=== PATIENT | male | born 1945 | race Caucasian/White ===

== ENCOUNTER 2020-08-03 08:40 | Outpatient (CLI) | payer MEDICARE, SELFPAY ==
[2020-08-03 09:13] LABS: Basophils Absolute Auto 0.1 K/mm3 (0.0-0.1); Basophils Percent Auto 1.3 % (0.2-1.2); Eosinophils Absolute Auto 0.2 K/mm3 (0-0.3); Eosinophils Percent Auto 2.8 % (0-4.4); Hematocrit 48.6 % (42.0-52.0); Hemoglobin 15.9 g/dL (14.0-18.0); Immature Granulocyte Absolute 0.05 K/mm3 (0.00-0.031); Immature Granulocyte Percent A 0.6 % (0-0.5); Lymphocytes Absolute Auto 1.96 K/mm3 (0.9-3.2); Lymphocytes Percent Auto 22.9 % (18.3-44.2); Mean Corpuscular HGB Conc 32.7 g/dl (32-36); Mean Corpuscular Hemoglobin 27.7 pg (26-34); Mean Corpuscular Volume 84.7 fl (80-100); Mean Platelet Volume 8.8 fl (7.4-10.4); Monocytes Absolute Auto 1.1 K/mm3 (0.1-0.6); Monocytes Percent Auto 12.4 % (2.6-8.5); Neutrophils Absolute Auto 5.1 K/mm3 (1.3-6.7); Platelet Count Result 335 k/mm3 (150-375); Red Blood Count 5.74 M/mm3 (4.6-6.20); Red Cell Distribution Width 13.1 % (11.5-14.5); White Blood Count 8.6 K/mm3 (4.5-10.0)
[2020-08-03 09:29] LABS: CRP < 0.5 mg/dL (<1.0); Uric Acid 6.8 mg/dL (3.5-8.5)
[2020-08-03 09:33] LABS: Rheumatoid Factor < 8.6 IU/ML (<12)
[2020-08-03 09:46] LABS: Erythrocyte Sedimentation Rate 1 mm/hr (0-20)
[2020-08-09 12:00] LABS: Anti Nuclear Antibody Titer 1:40 (Negative)
== END 2020-08-03 08:41 | disposition home or self-care (01) ==
PROVIDERS: PCP Physician Assistant; Visit Provider Orthopaedic Surgery
DX: M17.0 Bilateral primary osteoarthritis of knee (principal); M06.9 Rheumatoid arthritis, unspecified
CPT/HCPCS: 36415; 84550; 85025; 85652; 86038; 86039; 86140; 86430

== ENCOUNTER 2020-08-09 06:33 | Outpatient (CLI) | payer MEDICARE, SELFPAY ==
--- NOTE | ~2020-08-09 | MR_ITS ---
EXAMINATION: MR lumbar spine wo con EXAM DATE: 08/09/2020 07:46 INDICATION: M62.81 - Muscle weakness (generalized). Right knee gives out. TECHNIQUE: Multi-sequential, multiplanar MR images of the lumbar spine were obtained without contrast . Sagittal T1, T2, T2 fat saturation images. Axial T2 weighted images. There is no prior study for comparison. FINDINGS: There is mild lumbar dextroscoliosis. There is moderate disc disease L1-2 and L3-4, mild to moderate at the other lumbar levels and lower thoracic levels. The conus medullaris terminates at th e T12-L1 level and has normal signal intensity and morphology. Diffusely heterogeneous bone marrow s ignal without focal suspicious signal abnormality. Incompletely imaged right renal lesion, imaged por tion consistent with cyst measuring about 4 cm. The vertebral bodies are aligned in the AP dimension. Level by level evaluation: T12-L1: There is a minimal diffuse disc bulge. Facet arthropathy: Minimal. Neural foraminal stenosis: No stenosis. Central canal stenosis: No stenosis. L1-L2: There is a mild to moderate diffuse disc bulge. Facet arthropathy: Mild to moderate. Neural foraminal stenosis: Moderate right, mild left. Central canal stenosis: Mild. L2-L3: There is a moderate diffuse disc bulge. Facet arthropathy: Moderate. Left-sided ligamentum flavum hypertrophy. Neural foraminal stenosis: Moderate left, mild right. Central canal stenosis: Mild to moderate. L3-L4: There is a mild to moderate diffuse disc bulge. Facet arthropathy: Moderate. Neural foraminal stenosis: Moderate left, mild to moderate right. Central canal stenosis: Mild to moderate. L4-L5: There is mild to moderate diffuse disc bulge which is asymmetric to the right Facet arthropathy: Moderate to severe left, moderate right. Neural foraminal stenosis: Moderate bilateral. Central canal stenosis: Moderate. L5-S1: [id number] Facet arthropathy: Moderate to severe right, mild to moderate left. Neural foraminal stenosis: Moderate left, mild to moderate right. Central canal stenosis: Mild. IMPRESSION: 1. Overall moderate to severe lumbar spondylosis. 2. Mild dextroscoliosis. Reviewed, dictated and finalized at location A. RY SORTER
== END 2020-08-09 06:34 | disposition home or self-care (01) ==
PROVIDERS: PCP Physician Assistant; Visit Provider Orthopaedic Surgery
DX: M62.81 Muscle weakness (generalized) (principal); M47.816 Spondylosis without myelopathy or radiculopathy, lumbar region; M41.86 Other forms of scoliosis, lumbar region
CPT/HCPCS: 72148

== ENCOUNTER 2021-11-07 08:54 | Emergency (ER) | payer MEDICARE, SELFPAY ==
--- NOTE | 2021-11-07 09:03 | ED.WOUNDLAC ---
HPI - Wound/Laceration General Chief Complaint: Wound/Laceration Stated Complaint: Laceration on finger Time Seen by Provider: 11/07/21 09:05 Source: patient, RN notes reviewed and old records reviewed Mode of arrival: ambulatory Limitations: no limitations History of Present Illness HPI narrative: 76-year-old male presents to the [facility] with a laceration to his finger Patient states he was trying to set a mole trap when he cut the PIP dorsal 2nd right finger. States that it occurred almost 24 hours [employer]. Swelling noted. Skin flap already adhere to finger. Unknown last Tdap Full range of motion noted in all 5 fingers at the PIP and DIP joint. Sensation intact distal to injury. Capillary refill under 2 seconds Related Data Home Medications Medication Instructions Recorded Confirmed buspirone 7.5 mg tablet 7.5 mg PO BID 08/03/20 11/07/21 donepezil 10 mg tablet 23 mg PO ONCE 08/03/20 11/07/21 esomeprazole magnesium 40 mg 40 mg PO DAILY 08/03/20 11/07/21 capsule,delayed release finasteride 5 mg tablet 5 mg PO DAILY 08/03/20 11/07/21 levothyroxine 50 mcg tablet 50 mcg PO DAILY 08/03/20 11/07/21 sertraline 25 mg tablet 25 mg PO DAILY 08/03/20 11/07/21 tamsulosin 0.4 mg capsule 0.4 mg PO DAILY 08/03/20 11/07/21 Allergies Allergy/AdvReac Type Severity Reaction Status Date / Time No Known Allergies Allergy Verified 11/07/21 09:27 Review of Systems Review of Systems: All systems reviewed & are unremarkable except as noted in HPI and below Constitutional: Constitutional: Reports no additional constitutional complaints, Denies chills and Denies fever(s) Eyes: Eyes: Reports no additional eye complaints ENT: Reports system reviewed and no additional complaints, except as documented Cardiovascular: Cardiovascular: Reports no additional cardiovascular complaints, Denies chest pain and Denies dyspnea Respiratory: Respiratory: Reports no additional respiratory complaints, Denies cough and Denies dyspnea Gastrointestinal: Gastrointestinal: Reports no additional gastrointestinal complaints, Denies abdominal pain, Denies nausea and Denies vomiting Musculoskeletal: Musculoskeletal: Reports as per HPI, Reports arthralgias (Second finger right hand dorsal aspect) and Reports joint swelling Integumentary/Breasts: Skin/Breast: Reports as per HPI, Denies erythema, Reports skin swelling and Reports other (skin flap) Comments: Skin flap Neurologic: Reports system reviewed and no additional complaints, except as documented Psychiatric: Psychiatric: Reports no additional psychiatric complaints Allergic/Immunologic: Allergic/Immunologic: Reports no additional allergic/immunologic complaints PMF Past Medical History Medical History (Updated 11/07/21 @ 09:58 by Falguni Grigsby APRN) Hypertension Lumbar spondylosis Surgical History Surgical History H/O knee surgery 2016 right TKA H/O shoulder surgery waiting on records Family History Family History Other Cancer Hypertension Social History Social History Smoking status: Never smoker Alcohol intake: current Alcohol use details: occasional Additional living arrangements comments: spouse, Keke Gender identity (if verbalized by the patient): Male Comments At the time of my signature, I reviewed and agree with the nursing past medical, surgical, social, and family history. There is no relevant family history pertinent to the patient complaint. Exam Const: General: cooperative, healthy appearing, no acute distress, well developed, alert and awake Nutritional Appearance: well nourished Orientation/consciousness: patient oriented x3 Limitations: no limitations HENMT: Head: normal to inspection and No palpable skull fracture present Ears: hearing grossly normal bilaterally and external ear
[2021-11-07 09:07] VITALS: BP 130/72; PULSE 76; RESP 16; TEMP 36.6; O2SAT 99
[2021-11-07] MEDS: TETANUS,DIPHTHERIA,AC PERTUSSIS ADULT (0.5 ML) BOOSTRIX IM (09:55)
== END 2021-11-07 10:05 | disposition home or self-care (01) ==
PROVIDERS: Emergency Provider Nurse Practitioner; PCP Physician Assistant
DX: S61.210A Laceration without foreign body of right index finger without damage to nail, initial encounter (principal); W45.8XXA Other foreign body or object entering through skin, initial encounter; I10 Essential (primary) hypertension; M47.816 Spondylosis without myelopathy or radiculopathy, lumbar region; Z23 Encounter for immunization
CPT/HCPCS: 90471; 90715; 99212; G0463

== ENCOUNTER 2022-02-19 09:17 | Emergency (ER) | payer MEDICARE, SELFPAY ==
[2022-02-19 09:28] VITALS: BP 148/89; PULSE 77; RESP 16; TEMP 35.9; O2SAT 99
--- NOTE | 2022-02-19 09:28 | ED.EXTPRO ---
HPI - Extremity Problem General Chief complaint: Skin/Abscess/Foreign Body Stated complaint: SWOLLEN RIGHT HAND Time Seen by Provider: 02/19/22 09:28 Source: patient and RN notes reviewed Mode of arrival: ambulatory Limitations: no limitations History of Present Illness HPI Narrative: 76-year-old male presents to the [facility] with complaints of a swollen right hand. Patient states that he was stung by a wasp yesterday. Swelling noted to the base of the second finger and dorsal aspect of right hand. Tenderness and increased warmth noted. Has full range of motion of all 5 fingers. Capillary refill under 2 seconds. Sensation intact in all 5. No stinger noted Related Data Home Medications Medication Instructions Recorded Confirmed buspirone 7.5 mg tablet 7.5 mg PO BID 08/03/20 02/19/22 donepezil 10 mg tablet 23 mg PO ONCE 08/03/20 02/19/22 esomeprazole magnesium 40 mg 40 mg PO DAILY 08/03/20 02/19/22 capsule,delayed release finasteride 5 mg tablet 5 mg PO DAILY 08/03/20 02/19/22 levothyroxine 50 mcg tablet 50 mcg PO DAILY 08/03/20 02/19/22 (Synthroid) sertraline 25 mg tablet 25 mg PO DAILY 08/03/20 02/19/22 tamsulosin 0.4 mg capsule 0.4 mg PO DAILY 08/03/20 02/19/22 famotidine 40 mg tablet 1 tablet PO DAILY 02/19/22 02/19/22 Allergies Allergy/AdvReac Type Severity Reaction Status Date / Time No Known Allergies Allergy Verified 02/19/22 09:28 Review of Systems Review of Systems: All systems reviewed & are unremarkable except as noted in HPI and below Constitutional: Constitutional: Reports no additional constitutional complaints, Denies chills and Denies fever(s) Eyes: Eyes: Reports no additional eye complaints ENT: Reports system reviewed and no additional complaints, except as documented Cardiovascular: Cardiovascular: Reports no additional cardiovascular complaints Respiratory: Respiratory: Reports no additional respiratory complaints Gastrointestinal: Gastrointestinal: Reports no additional gastrointestinal complaints Musculoskeletal: Musculoskeletal: Reports no additional musculoskeletal complaints Integumentary/Breasts: Skin/Breast: Reports as per HPI, Reports erythema, Reports skin swelling and Reports wounds Neurologic: Reports system reviewed and no additional complaints, except as documented Psychiatric: Psychiatric: Reports no additional psychiatric complaints Allergic/Immunologic: Allergic/Immunologic: Reports no additional allergic/immunologic complaints [facility] Past Medical History Medical History Hypertension Lumbar spondylosis Surgical History Surgical History H/O knee surgery 2016 right TKA H/O shoulder surgery waiting on records Family History Family History Other Cancer Hypertension Social History Social History Smoking status: Never smoker Alcohol intake: current Alcohol use details: occasional Additional living arrangements comments: spouse, Keke Gender identity (if verbalized by the patient): Male Comments At the time of my signature, I reviewed and agree with the nursing past medical, surgical, social, and family history. There is no relevant family history pertinent to the patient complaint. Exam Const: General: healthy appearing, no acute distress and alert Nutritional Appearance: well nourished Orientation/consciousness: patient oriented x3 Limitations: no limitations HENMT: Head: normal to inspection Ears: external ears normal Eyes: General: appearance normal, both eyes and all related structures Pupils: Equal, round and reactive pupils present Neck: Neck: normal visual inspection, no lymphadenopathy and no meningeal signs Chest: Chest palpation & inspection: normal inspection of the chest Resp: Effort & Inspecti
[2022-02-19 09:32] VITALS: BP 148/89; PULSE 77; RESP 16; O2SAT 99
== END 2022-02-19 09:50 | disposition home or self-care (01) ==
PROVIDERS: Emergency Provider Nurse Practitioner
DX: T63.461A Toxic effect of venom of wasps, accidental (unintentional), initial encounter (principal); I10 Essential (primary) hypertension; M47.816 Spondylosis without myelopathy or radiculopathy, lumbar region
CPT/HCPCS: 99213; G0463

== ENCOUNTER 2022-10-10 16:53 | Emergency (ER) | payer MEDICARE, SELFPAY ==
[2022-10-10 17:03] VITALS: BP 145/78; PULSE 80; RESP 16; TEMP 36.3; O2SAT 98
--- NOTE | 2022-10-10 17:24 | ED.SKABFB ---
HPI - Skin/Abscess/Foreign Bdy General Chief complaint: Wound/Laceration Stated complaint: Cut Rt Hand Due to Fall Time Seen by Provider: 10/10/22 17:24 Source: patient Mode of arrival: ambulatory Limitations: no limitations History of Present Illness HPI narrative: 77-year-old male presents with avulsion to right palm. Patient states that he was hiking in [facility] today and fell and hit hand against a stick. Was able to get up on his own. Did not hit head. No LOC. No other injury. Has full range of motion to right hand. Unsure of last tetanus. All systems reviewed and negative except as noted above. Related Data Home Medications Medication Instructions Recorded Confirmed buspirone 7.5 mg tablet 7.5 mg PO BID 08/03/20 02/19/22 donepezil 10 mg tablet 23 mg PO ONCE 08/03/20 02/19/22 esomeprazole magnesium 40 mg 40 mg PO DAILY 08/03/20 02/19/22 capsule,delayed release finasteride 5 mg tablet 5 mg PO DAILY 08/03/20 02/19/22 levothyroxine 50 mcg tablet 50 mcg PO DAILY 08/03/20 02/19/22 (Synthroid) sertraline 25 mg tablet 25 mg PO DAILY 08/03/20 02/19/22 tamsulosin 0.4 mg capsule 0.4 mg PO DAILY 08/03/20 02/19/22 famotidine 40 mg tablet 1 tablet PO DAILY 02/19/22 02/19/22 Allergies Allergy/AdvReac Type Severity Reaction Status Date / Time No Known Allergies Allergy Verified 10/10/22 17:19 Review of Systems Review of Systems: CONSTITUTIONAL: Denies fever, chills, or sweats. EYES: Denies visual changes, redness, or discharge. ENT: Denies rhinorrhea, congestion, sore throat, or otalgia. CARDIOVASCULAR: Denies chest pain, palpitations, or edema. RESPIRATORY: Denies cough or dyspnea. GASTROINTESTINAL: Denies abdominal pain, nausea, vomiting, or diarrhea. GENITOURINARY: Denies dysuria or hematuria. SKIN: Denies rash or itching. Reports avulsion of skin to right hand. MUSCULOSKELETAL: Denies back pain, joint pain, or myalgia. NEUROLOGIC: Denies headache, numbness, or weakness. PSYCHIATRIC: Denies anxiety or depression. All other systems reviewed are negative, except as documented in HPI. [facility] Past Medical History Medical History Hypertension Lumbar spondylosis Surgical History Surgical History H/O knee surgery 2016 right TKA H/O shoulder surgery waiting on records Family History Family History Other Cancer Hypertension Social History Social History Smoking status: Never smoker Alcohol intake: current Alcohol use details: occasional Living arrangements: with family Additional living arrangements comments: spouse, Keke Occupation/Education: retired Gender identity (if verbalized by the patient): Male Comments At time of signature, agree with nursing past medical, surgical, social and family history. There is no relevant family history pertinent to the presenting complaint. Exam Narrative: GENERAL: This is a well-nourished, well-developed patient, in no apparent distress. HEAD: normocephalic, atraumatic. EYES: PERRL. Sclera clear/white. Vision is grossly intact. EARS: External ears normal NOSE: External nose normal NECK: Neck supple, non-tender without lymphadenopathy, masses or thyromegaly. CARDIOVASCULAR: Regular rate and rhythm without murmurs, gallops, or rubs. RESPIRATORY: Clear to auscultation. Breath sounds equal bilaterally. No wheezes, rales, or rhonchi. SKIN: warm, Dry, with no suspicious lesions or rash, good texture and turgor. avulasion of skin to palm of R hand approx. 2cm diameter. NEURO: awake, alert, and oriented to person, place and time. There were no obvious focal neurologic abnormalities. EXTREMITIES: No joint tenderness, effusion, or edema noted. Extrem: Hand/finger images: 1. Skin avulsion. Bleeding controlled.
[2022-10-10] MEDS: TETANUS/DIPHTHERIA TOXOIDS ADSORB 0.5 ML VIAL (*BKC) IM (17:40)
== END 2022-10-10 17:48 | disposition home or self-care (01) ==
PROVIDERS: Emergency Provider Nurse Practitioner Family; PCP Physician Assistant
DX: S61.411A Laceration without foreign body of right hand, initial encounter (principal); I10 Essential (primary) hypertension; Z23 Encounter for immunization; W19.XXXA Unspecified fall, initial encounter; Y93.01 Activity, walking, marching and hiking
CPT/HCPCS: 90471; 90714; 99212; G0463

== ENCOUNTER 2022-10-12 09:31 | Emergency (ER) | payer MEDICARE, SELFPAY ==
--- NOTE | ~2022-10-12 | XR_ITS ---
EXAMINATION: XR hand RT min 3V DATE: 10/12/2022 09:57 INDICATION: Right hand swelling. TECHNIQUE: 3 views of right hand were obtained. COMPARISON: None. FINDINGS: Bone alignment is normal. No fracture. There is mild osteoarthritis of triscaphe joint and first carpometacarpal joint. There is mild osteoarthritis of many of the metacarpophalangeal joints a nd interphalangeal joints. There is moderate osteoarthritis of second and fourth distal interphalange al joints and fifth proximal and distal interphalangeal joints. IMPRESSION: 1. Polyarticular osteoarthritis. Reviewed, dictated and finalized at location A. ERING TEACHER
--- NOTE | 2022-10-12 09:39 | ED.SKABFB ---
HPI - Skin/Abscess/Foreign Bdy General Chief complaint: Extremity Injury, Upper Stated complaint: Rt hand swelling Time Seen by Provider: 10/12/22 09:39 Source: patient Mode of arrival: ambulatory Limitations: no limitations History of Present Illness HPI narrative: 77 Year old male presents with complaint of pain to right hand with swelling. Patient was seen October 10 at [facility] after falling. At that time he refused x-ray to right hand stating that he did not have any pain. He was seen that day for a skin avulsion. Today he primary care physician to discuss pain and swelling and was told that he needed to get an x-ray. Patient has full range of motion to right hand. Distal neurovascularly intact. Systems reviewed and negative except as noted above. Related Data Home Medications Medication Instructions Recorded Confirmed buspirone 7.5 mg tablet 7.5 mg PO BID 08/03/20 10/12/22 donepezil 10 mg tablet 23 mg PO ONCE 08/03/20 10/12/22 esomeprazole magnesium 40 mg 40 mg PO DAILY 08/03/20 10/12/22 capsule,delayed release finasteride 5 mg tablet 5 mg PO DAILY 08/03/20 10/12/22 levothyroxine 50 mcg tablet 50 mcg PO DAILY 08/03/20 10/12/22 (Synthroid) tamsulosin 0.4 mg capsule 0.4 mg PO DAILY 08/03/20 10/12/22 famotidine 40 mg tablet 1 tablet PO DAILY 02/19/22 10/12/22 Allergies Allergy/AdvReac Type Severity Reaction Status Date / Time No Known Allergies Allergy Verified 10/12/22 09:43 Review of Systems Review of Systems: CONSTITUTIONAL: Denies fever, chills, or sweats. EYES: Denies visual changes, redness, or discharge. ENT: Denies rhinorrhea, congestion, sore throat, or otalgia. CARDIOVASCULAR: Denies chest pain, palpitations, or edema. RESPIRATORY: Denies cough or dyspnea. GASTROINTESTINAL: Denies abdominal pain, nausea, vomiting, or diarrhea. GENITOURINARY: Denies dysuria or hematuria. SKIN: Denies rash or itching. MUSCULOSKELETAL: reports pain and swelling to right hand. NEUROLOGIC: Denies headache, numbness, or weakness. PSYCHIATRIC: Denies anxiety or depression. All other systems reviewed are negative, except as documented in HPI. [facility] Past Medical History Medical History Hypertension Lumbar spondylosis Surgical History Surgical History H/O knee surgery 2016 right TKA H/O shoulder surgery waiting on records Family History Family History Other Cancer Hypertension Social History Social History Smoking status: Never smoker Alcohol intake: current Alcohol use details: occasional Living arrangements: with family Additional living arrangements comments: spouse, Keke Occupation/Education: retired Gender identity (if verbalized by the patient): Male Comments At time of signature, agree with nursing past medical, surgical, social and family history. There is no relevant family history pertinent to the presenting complaint. Exam Narrative: GENERAL: This is a well-nourished, well-developed patient, in no apparent distress. HEAD: normocephalic, atraumatic. EYES: PERRL. Sclera clear/white. Vision is grossly intact. EARS: External ears normal NOSE: External nose normal NECK: Neck supple, non-tender without lymphadenopathy, masses or thyromegaly. CARDIOVASCULAR: Regular rate and rhythm without murmurs, gallops, or rubs. RESPIRATORY: Clear to auscultation. Breath sounds equal bilaterally. No wheezes, rales, or rhonchi. SKIN: warm, Dry, intact with no suspicious lesions or rash, good texture and turgor. NEURO: awake, alert, and oriented to person, place and time. There were no obvious focal neurologic abnormalities. EXTREMITIES: swelling noted to R thumb and thenar eminence. tender at base of thumb and 1st metacarpal Course Course Level of Care:
[2022-10-12 09:42] VITALS: BP 140/61; PULSE 79; RESP 16; TEMP 36.2; O2SAT 100
[2022-10-12 09:45] VITALS: BP 140/61; PULSE 79; RESP 16; TEMP 36.2; O2SAT 100
== END 2022-10-12 10:18 | disposition home or self-care (01) ==
PROVIDERS: Emergency Provider Nurse Practitioner Family; PCP Physician Assistant
DX: S61.431A Puncture wound without foreign body of right hand, initial encounter (principal); I10 Essential (primary) hypertension; W19.XXXA Unspecified fall, initial encounter
CPT/HCPCS: 73130; 99213; G0463

== ENCOUNTER 2022-10-30 19:25 | Emergency (ER) | payer MEDICARE, SELFPAY ==
[2022-10-30 19:36] VITALS: BP 140/83; PULSE 81; RESP 16; TEMP 35.8; O2SAT 98
--- NOTE | 2022-10-30 20:26 | ED.UPPEXIN ---
HPI - Extremity Injury (Upper) General Chief Complaint: Extremity Injury, Upper Stated Complaint: wound check rt hand Time Seen by Provider: 10/30/22 20:26 History of Present Illness HPI narrative: 77 yo M presents wtih c/o painful bump to R hand near previous injury that is red and swollen. concerned for infection. [place] the [place] few w[place] ago and hit hand on stick. had no fracture or FB on xray. took ABx for infection. ROM to R hand normal. afebrile. All systems reviewed and negative except as noted above. Related Data Home Medications Medication Instructions Recorded Confirmed buspirone 7.5 mg tablet 7.5 mg PO BID 08/03/20 10/30/22 donepezil 10 mg tablet 23 mg PO ONCE 08/03/20 10/30/22 esomeprazole magnesium 40 mg 40 mg PO DAILY 08/03/20 10/30/22 capsule,delayed release levothyroxine 50 mcg tablet 50 mcg PO DAILY 08/03/20 10/30/22 (Synthroid) tamsulosin 0.4 mg capsule 0.4 mg PO DAILY 08/03/20 10/30/22 famotidine 40 mg tablet 1 tablet PO DAILY 02/19/22 10/30/22 sertraline 50 mg tablet 50 mg PO DAILY 10/30/22 10/30/22 Allergies Allergy/AdvReac Type Severity Reaction Status Date / Time No Known Allergies Allergy Verified 10/30/22 20:10 Review of Systems Review of Systems: CONSTITUTIONAL: Denies fever, chills, or sweats. EYES: Denies visual changes, redness, or discharge. ENT: Denies rhinorrhea, congestion, sore throat, or otalgia. CARDIOVASCULAR: Denies chest pain, palpitations, or edema. RESPIRATORY: Denies cough or dyspnea. GASTROINTESTINAL: Denies abdominal pain, nausea, vomiting, or diarrhea. GENITOURINARY: Denies dysuria or hematuria. SKIN: Denies rash or itching. MUSCULOSKELETAL: Denies back pain, joint pain, or myalgia. Reports painful bump to right hand dorsal aspect with Redness and swelling. NEUROLOGIC: Denies headache, numbness, or weakness. PSYCHIATRIC: Denies anxiety or depression. All other systems reviewed are negative, except as documented in HPI. [facility] Past Medical History Medical History Hypertension Lumbar spondylosis Surgical History Surgical History H/O knee surgery 2016 right TKA H/O shoulder surgery waiting on records Family History Family History Other Cancer Hypertension Social History Social History Smoking status: Never smoker Alcohol intake: current Alcohol use details: occasional Living arrangements: with family Additional living arrangements comments: spouse, Keke Occupation/Education: retired Gender identity (if verbalized by the patient): Male Comments At time of signature, agree with nursing past medical, surgical, social and family history. There is no relevant family history pertinent to the presenting complaint. Exam Narrative: GENERAL: This is a well-nourished, well-developed patient, in no apparent distress. HEAD: normocephalic, atraumatic. EYES: PERRL. Sclera clear/white. Vision is grossly intact. EARS: External ears normal NOSE: External nose normal NECK: Neck supple, non-tender without lymphadenopathy, masses or thyromegaly. CARDIOVASCULAR: Regular rate and rhythm without murmurs, gallops, or rubs. RESPIRATORY: Clear to auscultation. Breath sounds equal bilaterally. No wheezes, rales, or rhonchi. SKIN: warm, Dry, intact with no suspicious lesions or rash, good texture and turgor. NEURO: awake, alert, and oriented to person, place and time. There were no obvious focal neurologic abnormalities. EXTREMITIES: No joint tenderness, effusion, or edema noted. painful area to dorasal aspect R hand approx. 1.5cm diameter. erythematous. fluctuant. Extrem: Hand/finger images: 1. 1.5cm area of swelling, fluctuance, erythema Course Course Level of Care: Express Care Visit Vital Signs Vital signs:
== END 2022-10-30 20:45 | disposition home or self-care (01) ==
PROVIDERS: Emergency Provider Nurse Practitioner Family; PCP Physician Assistant
DX: L72.3 Sebaceous cyst (principal); I10 Essential (primary) hypertension; M47.816 Spondylosis without myelopathy or radiculopathy, lumbar region
CPT/HCPCS: 10060; 99213; G0463

== ENCOUNTER 2023-03-10 10:18 | Emergency (ER) | payer MEDICARE, SELFPAY ==
[2023-03-10 11:04] VITALS: BP 146/81; PULSE 73; RESP 18; TEMP 36.6; O2SAT 99
--- NOTE | 2023-03-10 11:08 | ED.WOUNDLAC ---
HPI - Wound/Laceration General Chief Complaint: Wound/Laceration Stated Complaint: surgical wound check Time Seen by Provider: 03/10/23 11:05 Source: patient Mode of arrival: ambulatory Limitations: no limitations History of Present Illness HPI narrative: Mr. Timmons is a 77-year-old male patient presenting to the clinic today for a wound check. He reports he had a muscle biopsy done at [place] and states he when outside and mow the grass yesterday the area to his right anterior thigh became swollen over the surgery site. He states that the swelling has since decreased and is looking a lot better but he wants to have a provider look at his leg. Related Data Home Medications Medication Instructions Recorded Confirmed buspirone 7.5 mg tablet 7.5 mg PO BID 08/03/20 10/30/22 donepezil 10 mg tablet 23 mg PO ONCE 08/03/20 10/30/22 esomeprazole magnesium 40 mg 40 mg PO DAILY 08/03/20 10/30/22 capsule,delayed release levothyroxine 50 mcg tablet 50 mcg PO DAILY 08/03/20 10/30/22 (Synthroid) tamsulosin 0.4 mg capsule 0.4 mg PO DAILY 08/03/20 10/30/22 famotidine 40 mg tablet 1 tablet PO DAILY 02/19/22 10/30/22 sertraline 50 mg tablet 50 mg PO DAILY 10/30/22 10/30/22 Allergies Allergy/AdvReac Type Severity Reaction Status Date / Time No Known Allergies Allergy Verified 10/30/22 20:10 Review of Systems Review of Systems: Pertinent positives per HPI. Patient denies any fever, chills, rash, headache, visual changes, dizziness, cough, runny nose, sore throat, shortness of breath, chest pain, palpitations, nausea, vomiting, diarrhea, constipation, abdominal pain, or any urinary issues. [facility] Past Medical History Medical History Hypertension Lumbar spondylosis Surgical History Surgical History H/O knee surgery 2016 right TKA H/O shoulder surgery waiting on records Family History Family History Other Cancer Hypertension Social History Social History Smoking status: Never smoker Alcohol intake: current Alcohol use details: occasional Living arrangements: with family Additional living arrangements comments: spouse, Keke Occupation/Education: retired Gender identity (if verbalized by the patient): Male Comments At the time of my signature, I reviewed and agree with the nursing past medical, surgical, social, and family history. There is no relevant family history pertinent to the patient complaint. Exam Narrative: General: Well-developed, well nourished, in no apparent distress Head: Normocephalic, atraumatic. Cardio: Regular rate and rhythm, s1 and s2 normal, no murmur appreciated. Resp: Clear to auscultation bilaterally, no rhonchi, rales, wheezing or rubs. Musculoskeletal: No deformity, well-healing wound to the right anterior thigh, very minimal redness/scabbing around the suture line, no erythema, mild tender to palpation, mild swelling noted over the area, grossly normal range of motion, muscle strength strong and equal, peripheral pulse strong, no cyanosis, normal gait and station Course Course Emergency Course: Portions of this record may have been created with voice recognition software. Level of Care: Express Care Visit Vital Signs Vital signs: Vital Signs Temperature 36.6 C 03/10/23 11:04 Pulse Rate 73 03/10/23 11:04 Respiratory Rate 18 03/10/23 11:04 Blood Pressure 146/81 H 03/10/23 11:04 Pulse Oximetry 99 03/10/23 11:04 Oxygen Delivery Room Air 03/10/23 11:04 Temperature 36.6 C 03/10/23 11:04 Pulse Rate 73 03/10/23 11:04 Respiratory Rate 18 03/10/23 11:04 Blood Pressure 146/81 H 03/10/23 11:04 Pulse Oximetry 99 03/10/23 11:04 Oxygen Delivery Room Air 03/10/23 11:04 Vital sign
== END 2023-03-10 11:43 | disposition home or self-care (01) ==
PROVIDERS: Emergency Provider Nurse Practitioner Family; PCP Physician Assistant
DX: Z48.01 Encounter for change or removal of surgical wound dressing (principal); I10 Essential (primary) hypertension; M47.816 Spondylosis without myelopathy or radiculopathy, lumbar region; Z96.651 Presence of right artificial knee joint
CPT/HCPCS: 99211; G0463

== ENCOUNTER 2024-07-10 15:16 | Emergency (ER) | payer MEDICARE, SELFPAY ==
--- NOTE | ~2024-07-10 | XR_ITS ---
EXAMINATION: XR abdomen/kub 1V DATE: 07/10/2024 15:59 INDICATION: Hematuria. TECHNIQUE: A supine view of the abdomen on 2 radiographs was obtained. COMPARISON: None. FINDINGS: There are no dilated loops of bowel. There is a moderate volume of stool in the colon. Ther e are phleboliths in the pelvis. IMPRESSION: 1. No visible urolithiasis. Reviewed, dictated and finalized at location A. [facility] IMPRESSION: 1. No visible urolithiasis.
[2024-07-10 15:28] VITALS: BP 151/87; PULSE 85; RESP 18; TEMP 36.2; O2SAT 100
[2024-07-10 15:42] LABS: EDUAAPPEAR Clear; EDUABILI Negative (Negative); EDUABLOOD Negative (Negative); EDUACOLOR1 Yellow; EDUAGLUCOSE Negative (Negative); EDUAKETONE Negative (Negative); EDUALEUKO Negative (Negative); EDUANITRATE Negative (Negative); EDUAPROTEIN Negative (Negative); EDUAUROBILI 0.2
--- NOTE | 2024-07-10 15:52 | ED_ITS ---
HPI - Male Genitourinary General Chief complaint: Urogenital-Male Stated complaint: possible UTI Time Seen by Provider: 07/10/24 15:36 Source: patient and RN notes reviewed Mode of arrival: ambulatory Limitations: no limitations History of Present Illness HPI Narrative: Patient presents today complaining of 1 episode of hematuria this morning. States he voided and noted blood on the toilet paper when wiping. He has not voided again until giving his urine sample upon arrival. Denies dysuria, abdominal pain, back/flank pain, nausea vomiting, fever, history of kidney stones, or any additional symptoms. Related Data Home Medications Medication Instructions Recorded Confirmed donepezil 10 mg tablet 23 mg PO ONCE 08/03/20 07/10/24 esomeprazole magnesium 40 mg 40 mg PO DAILY 08/03/20 07/10/24 capsule,delayed release levothyroxine 50 mcg tablet 50 mcg PO DAILY 08/03/20 07/10/24 (Synthroid) tamsulosin 0.4 mg capsule 0.4 mg PO DAILY 08/03/20 07/10/24 sertraline 50 mg tablet 50 mg PO DAILY 10/30/22 07/10/24 esomeprazole magnesium 40 mg mg 07/10/24 07/10/24 capsule,delayed release levothyroxine 50 mcg tablet mcg 07/10/24 Allergies Allergy/AdvReac Type Severity Reaction Status Date / Time No Known Allergies Allergy Verified 07/10/24 15:42 Review of Systems Review of Systems: CONSTITUTIONAL: Denies body aches, fever, chills, or sweats. EYES: Denies visual changes, redness, or discharge. ENT: Denies rhinorrhea, congestion, sore throat, or otalgia. CARDIOVASCULAR: Denies chest pain, palpitations, or edema. RESPIRATORY: Denies cough or dyspnea. GASTROINTESTINAL: Denies abdominal pain, nausea, vomiting, or diarrhea. GENITOURINARY: + hematuria SKIN: Denies rash, itching, or wounds. MUSCULOSKELETAL: Denies back pain, joint pain, or myalgia. NEUROLOGIC: Denies headache, numbness, tingling, or weakness. PSYCH: Denies depression or anxiety. [facility] Past Medical History Medical History (Updated 07/10/24 @ 16:14 by France Lopez, COMMERCIAL LITIGATION ATTORNEY, [place]) Hypertension Inclusion body myositis Lumbar spondylosis Surgical History Surgical History H/O knee surgery 2016 right TKA H/O shoulder surgery waiting on records Family History Family History Other Cancer Hypertension Social History Social History Smoking status: Never smoker Alcohol intake: current Alcohol use details: occasional Living arrangements: with family Additional living arrangements comments: spouse, Keke Occupation/Education: retired Gender identity (if verbalized by the patient): Male Comments At time of signature, I have reviewed and agree with nursing past medical, surgical, social and family history unless otherwise noted. Please see nursing chart for further information. There is no relevant family history pertinent to the presenting complaint Exam Narrative: GENERAL: Well-appearing, well-nourished, and in no acute distress. HEAD: Normocephalic, atraumatic. EYES: EOMI. No redness or drainage. Conjunctivae normal. ENT: Mucous membranes pink and moist. NECK: Normal AROM. CHEST: No respiratory distress. Clear to auscultation. HEART: Regular rate and rhythm. No murmur appreciated. Normal peripheral pulses. ABDOMEN: Soft, nontender, nondistended, normal active bowel sounds. -CVAT EXTREMITIES: Normal range of motion. No edema. SKIN: Warm, dry, no rash. Capillary refill normal. Normal skin turgor. NEURO: No focal deficits. Alert and oriented x3. Gait steady. PSYCH: Normal affect. No signs of depression or anxiety. Course Course Level of Care: Express Care Visit Vital Signs Vital signs: Vital Signs Temperature 97.2 F L 07/10/24 15:28 Pulse Rate 85 07/10/24 15:28 Respiratory Rate 18 07/10/24 15:28 Blood Pressure 151/87 H 07/10/24 15:28 Pulse Oximetry 100 07/10/24 15:28 Oxygen Delivery Room Air 07/10/24 15:28 Temperature 97.2 F L 07/10/24 15:28 Pulse Rate 85 07/10/24 15:28 Respiratory Rate 18 07/10/24 15:28 Blood Pressure 151/87 H 07/10/24 15:28 Pulse Oximetry 100 07/10/24 15:28 Oxygen Delivery Room Air 07/10/24 15:28 Reviewed MDM - Male Genitourinary MDM Narrative Medical decision making narrative: Today KUB negative. Urinalysis negative. Recommend PCP follow-up for repeat urinalysis. Patient agrees with plan. Anticipatory guidance given. Differential Diagnosis Differential diagnosis: Likely urinary tract infection, urethritis and other (Kidney stone, urethral stone, bladder cancer) Lab Data Attestation: I reviewed the patient's lab results. Labs: Lab Results 07/10/24 Range/Units 15:40 POC Urine Color Yellow POC Urine Clarity Clear POC Urine pH 6.0 POC Ur Specif Telferner 1.030 POC Urine Protein Negative (Negative) POC Ur Glucose (UA) Negative (Negative) POC Urine Ketones Negative (Negative) POC Urine Blood Negative (Negative) POC Urine Nitrite Negative (Negative) POC Urine Bilirubin Negative (Negative) POC Urine Urobilinogen 0.2 POC U Leukocyte Esteras Negative (Negative) Imaging Data Radiologist's impression: ITS Impressions Abdomen X-Ray 07/10/24 16:01 IMPRESSION: 1. No visible urolithiasis. Critical Care Time Critical Care Time Critical Care Time: No Discharge Plan Discharge Clinical Impression: Hematuria Qualifiers: Hematuria type: unspecified type Qualified Code(s): R31.9 - Hematuria, unspecified Patient Disposition: Home, Self-Care Condition: Stable Instructions: Hematuria (ED) Additional Instructions: Your urinalysis at [facility] is negative for blood. Your abdominal x-ray is negative today. Please make an appointment with your PCP for a follow-up urinalysis and evaluation. Please go to the ER immediately if you develop recurrent blood and pain in your abdomen or back, fever, nausea or vomiting. Your blood pressure was elevated above 120/80 today at Urgent Care. This puts you above the threshold for follow up. Please schedule a followup visit with your personal physician as soon as possible, for further evaluation and treatment. Even blood pressure exceeding 120/80 may indicate pre-hypertension. Prescriptions: No Action levothyroxine 50 mcg tablet esomeprazole magnesium 40 mg capsule,delayed release(DR/EC) sertraline 50 mg tablet 50 mg PO DAILY levothyroxine [Synthroid] 50 mcg tablet 50 mcg PO DAILY donepezil 10 mg tablet 23 mg PO ONCE tamsulosin 0.4 mg capsule 0.4 mg PO DAILY esomeprazole magnesium 40 mg capsule,delayed release(DR/EC) 40 mg PO DAILY Follow-up/Referrals: Kirt,Levar Hess PA-C [Primary Care Provider] - Time of Disposition: 16:12
== END 2024-07-10 16:19 | disposition home or self-care (01) ==
PROVIDERS: Emergency Provider Nurse Practitioner; PCP Physician Assistant
DX: R31.9 Hematuria, unspecified (principal); I10 Essential (primary) hypertension; M47.816 Spondylosis without myelopathy or radiculopathy, lumbar region
CPT/HCPCS: 74018; 81003; 99213; G0463

== ENCOUNTER 2024-10-04 11:28 | Emergency (ER) | payer MEDICARE, SELFPAY ==
[2024-10-04 11:40] VITALS: BP 157/93; PULSE 95; RESP 18; TEMP 36.3; O2SAT 99
--- NOTE | 2024-10-04 11:50 | ED.GENADULT ---
HPI - General Adult General Chief complaint: Extremity Injury, Upper Stated complaint: right hand pain Source: patient Mode of arrival: ambulatory Limitations: no limitations History of Present Illness HPI narrative: 79-year-old male presented for complaint of swelling and pain to the right hand (palmar of the 2nd MCP area). Patient says he removed several tiny sticker splinters from an outdoor whitley about 3 days ago. Says he feels like they are all out of the hand but continues to have some tenderness over site. Denies drainage, numbness tingling or fever. Applied neosporin and bandaid. Related Data Home Medications ?Medication ?Instructions ?Recorded ?Confirmed ?Last Taken ?Type donepezil 10 mg tablet 23 mg PO ONCE 08/03/20 07/10/24 Unknown History tamsulosin 0.4 mg capsule 0.4 mg PO DAILY 08/03/20 07/10/24 Unknown History sertraline 50 mg tablet 50 mg PO DAILY 10/30/22 07/10/24 Unknown History esomeprazole magnesium 40 mg mg 07/10/24 07/10/24 Unknown History capsule,delayed release levothyroxine 50 mcg tablet mcg 07/10/24 Unknown History famotidine 40 mg tablet mg 10/04/24 Unknown History finasteride 5 mg tablet mg 10/04/24 Unknown History Allergies Allergy/AdvReac Type Severity Reaction Status Date / Time No Known Allergies Allergy Verified 10/04/24 11:40 Review of Systems Review of Systems: CONSTITUTIONAL: Denies body aches, fever, chills, or sweats. EYES: Denies visual changes, redness, or discharge. ENT: Denies rhinorrhea, congestion CARDIOVASCULAR: Denies chest pain, palpitations, or edema. RESPIRATORY: Denies cough or dyspnea. GASTROINTESTINAL: Denies abdominal pain, nausea, vomiting, or diarrhea. SKIN: per HPI MUSCULOSKELETAL: Denies back pain, joint pain, or myalgia. NEUROLOGIC: Denies headache, numbness, tingling, or weakness. [facility] Past Medical History Medical History Inclusion body myositis Hypertension Lumbar spondylosis Surgical History Surgical History H/O shoulder surgery waiting on records H/O knee surgery 2016 right TKA Family History Family History Other Cancer Hypertension Social History Social History Smoking status: Never smoker Alcohol intake: current Alcohol use details: occasional Living arrangements: with family Additional living arrangements comments: spouse, Keke Occupation/Education: retired Gender identity (if verbalized by the patient): Male Comments At time of signature, I have reviewed and agree with nursing past medical, surgical, social and family history unless otherwise noted. Please see nursing chart for further information. There is no relevant family history pertinent to the presenting complaint Exam Narrative: GENERAL: Well-appearing ENT: Mucous membranes moist. Oropharynx without edema, erythema or lesions. NECK: Supple. No lymphadenopathy CHEST: Clear to auscultation. HEART: Regular rate and rhythm. SKIN: Warm, dry. Right hand palmar aspect of 2nd mcp with puncture site, mild swelling and erythema, tender; no fluctuance or drainage, no streaking. No palpable FB. NEURO: Alert and oriented x3. Course Course Emergency Course: Patient is aware of diagnosis, understands and agrees to treatment plan. Anticipatory guidance given. Patient agrees to follow-up as directed and is aware of reasons to seek care at the emergency department. Portions of this record may have been created with voice recognition software Level of Care: Express Care Visit Vital Signs Vital signs: Vital Signs Temperature 97.3 F L 10/04/24 11:40 Pulse Rate 95 10/04/24 11:40 Respiratory Rate 18 10/04/24 11:40 Blood Pressure 157/93 H 10/04/24 11:40 Pulse Oximetry 99 10/04/24 11:40 Oxygen Delivery Room Air 10/04/24 11:40 Temperature 97.3 F L 10/04/24 11:40 Pulse Rate 95 10/04/24 11:40 Respiratory Rate 18 10/04/24 11:40 Blood Pressure 157/93 H 10/04/24 11:40 Pulse Oximetry 99 10/04/24 11:40 Oxygen Delivery Room Air 10/04/24 11:40 Reviewed Medical Decision Making MDM Narrative Medical decision making narrative: Discussed physical exam findings and x-ray. no apparent FB noted, none palpable. Advised supportive measures and signs/symptoms to go to the ER. Pt is appropriate for outpt treatment and f/u. Differential Diagnosis Differential Diagnosis: Cellulitis, foreign body, abscess Vital Signs Vital Signs: Vital Signs Temperature 97.3 F L 10/04/24 11:40 Pulse Rate 95 10/04/24 11:40 Respiratory Rate 18 10/04/24 11:40 Blood Pressure 157/93 H 10/04/24 11:40 Pulse Oximetry 99 10/04/24 11:40 Oxygen Delivery Room Air 10/04/24 11:40 Temperature 97.3 F L 10/04/24 11:40 Pulse Rate 95 10/04/24 11:40 Respiratory Rate 18 10/04/24 11:40 Blood Pressure 157/93 H 10/04/24 11:40 Pulse Oximetry 99 10/04/24 11:40 Oxygen Delivery Room Air 10/04/24 11:40 Imaging Data Radiologist's impression: Patient: Don Timmons : 1945 MR#: [id number] Age: 79 Acct:[id number] Loc: [facility] ADM Date: 10/04/24Attending Dr: Ordering Physician: Elizabeth Hollins APRN Date of Service: 10/04/24 Procedure(s): XR finger 2nd RT min 2V Accession Number(s): [id number] cc: Kirt, Levar Hess PA-C; Elizabeth Hollins APRN~ EXAMINATION: XR finger 2nd RT min 2V DATE: 10/04/2024 12:09 INDICATION: Penetrating trauma at the base of the right second digit. TECHNIQUE: Dorsal palmar, lateral and 2 oblique views of the right second digit were obtained COMPARISON: Right hand radiographs dated 10/22/2022 FINDINGS: Unchanged slight ulnar subluxation and angulation at the second metacarpophalangeal joint. No fracture. Polyarticular osteoarthritis, moderate severity at the first and second carpal metacarpal and second distal interphalangeal joints and mild at the first-third metacarpophalangeal and remainder of the visualized interphalangeal joints. There are couple small unchanged sesamoid bone projecting palmar to the head of the second metacarpal. No radiopaque foreign bodies or soft tissue gas identified. IMPRESSION: 1. No acute osseous abnormality or radiopaque foreign bodies. 2. 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 Discharge Plan Discharge Clinical Impression: Cellulitis Patient Disposition: Home, Self-Care Condition: Stable Instructions: Antibiotic Form, Cellulitis (ED) Additional Instructions: Keep the area clean and dry - cleanse with warm water and mild soap and allow to fully dry. Ok to apply neosporin to the site Frequent warm water soaks Take antibiotic as directed Watch for worsening symptoms including pain, redness, swelling, streaking, pus/drainage, fever. Go to the ER with any of these symptoms or concerns. Follow up with primary care provider as needed. Patient Language: Hungarian Prescriptions: New cephalexin 500 mg capsule 500 mg PO Q8H 5 Days Qty: 15 0RF No Action levothyroxine 50 mcg tablet esomeprazole magnesium 40 mg capsule,delayed release(DR/EC) sertraline 50 mg tablet 50 mg PO DAILY famotidine 40 mg tablet finasteride 5 mg tablet donepezil 10 mg tablet 23 mg PO ONCE tamsulosin 0.4 mg capsule 0.4 mg PO DAILY Follow-up/Referrals: Kirt,Levar Hess PA-C [Primary Care Provider] - Time of Disposition: 12:50
== END 2024-10-04 12:54 | disposition home or self-care (01) ==
PROVIDERS: Emergency Provider Nurse Practitioner Family; PCP Physician Assistant
DX: L03.113 Cellulitis of right upper limb (principal); I10 Essential (primary) hypertension; M47.816 Spondylosis without myelopathy or radiculopathy, lumbar region
CPT/HCPCS: 73140; 99213; G0463

== ENCOUNTER 2025-02-11 09:55 | Outpatient (CLI) | payer MEDICARE, SELFPAY ==
--- NOTE | ~2025-02-11 | US_ITS ---
Testicular ultrasound with doppler. Indication: Other specific disorder of male genital organs. Technique: Real-time sonography the scrotum was performed. Color flow Doppler and Doppler spectral an alysis were performed. Findings: The testes are homogeneous in echotexture bilaterally. There is no evidence of solid intra testicular mass. There is a 4 mm simple appearing left testicular cyst. The right testis measures 4.8 x 2.4 x 2.4 cm and the left 3.7 x 2.2 x 3.1 cm. There is color-flow seen to both testes. Arterial an d venous spectral waveforms are seen in both testes. There is no sonographic evidence of torsion. The re is a large right epididymal cyst versus spermatocele measuring 3.5 x 3.6 x 2.0 cm. Left epididymis unremarkable. Small bilateral hydroceles are present.. Impression: Small bilateral hydroceles. 3.6 cm right epididymal cyst versus spermatocele. 4 mm simple appearing left testicular cyst. Reviewed, dictated and finalized at [facility]. Impression: Small bilateral hydroceles. 3.6 cm right epididymal cyst versus spermatocele. 4 mm simple appearing left testicular cyst.
--- OUTSIDE RECORDS SUMMARY | 2025-02-11 10:07 | XMS_ITS | Patient Health Record ---
Author Organization [facility] Address [address] [place], [place] [id number] Care Team Providers Care Food And Beverage Outlets Manager Name Role Phone JUAN CRESPO Unavailable [phone] Levar Moralez Unavailable Unavailable Reason For Referral No Information Plan Of Treatment No Information Insurance Providers Payer Name Payer Address Payer Phone Subscriber Number Group Number Insured Name Patient Relationship to Insured Coverage Start Date Coverage End Date [facility] [address] [address] [place] [address] [id number] DIANA VALDEZ Self - patient is the insured
--- OUTSIDE RECORDS SUMMARY | 2025-02-11 10:08 | XMS_ITS | Patient Health Record ---
Author Organization [facility] Address [address] [address] Care Team Providers Care Credit Card Clerk Name Role Phone GRISELDA CRUMP Unavailable [phone] Yusuf Mackey MD Unavailable Unavailable Reason For Referral No Information Problems Problem Type SNOMED Code ICD Code Onset Dates Problem Status W/U Status Risk Notes Problem [id number] Pain in right leg (M79.604) Active confirmed Plan Of Treatment No Information Insurance Providers Payer Name Payer Address Payer Phone Subscriber Number Group Number Insured Name Patient Relationship to Insured Coverage Start Date Coverage End Date [employer] [address] [address] [place] [address] [id number] DIANA VALDEZ Self - patient is the insured
== END 2025-02-11 09:56 | disposition home or self-care (01) ==
PROVIDERS: PCP Physician Assistant; Visit Provider Physician Assistant
DX: N43.2 Other hydrocele (principal); N44.2 Benign cyst of testis; N43.40 Spermatocele of epididymis, unspecified; N50.89 Other specified disorders of the male genital organs
CPT/HCPCS: 76870; 93976

== ENCOUNTER 2025-05-27 12:16 | Emergency (ER) | payer MEDICARE, SELFPAY ==
--- OUTSIDE RECORDS SUMMARY | 2025-05-26 08:00 | XMS_ITS | Encounter Summary ---
Author Organization [facility] Healthcare Address [address] [place] [address] Care Team Providers Care Accounting Tutor Name Role Phone Alexander Powers MD [facility] Anabel Higgins MD Primary Care Provider [phone] Reason for Visit * Reason Comments Alzheimer's Disease Encounter Details Date Type Department Care Team (Late st Contact Info) Description 05/26/2025 8:00 AM CDT Office Visit [facility] [address] [address] Keysha Dixon MD [address] [place] [address] [id number] Late onset Alzheimer's disease without behavioral disturbance (HCC) (Primary Dx); Inclusion body myositis (HCC); Memory deficit Social History Tobacco Use Types Packs/Day Years Used Date Smoking Tobacco: Never Smokeless Tobacco: Never Alcohol Use Standard Drinks/Week Comments Yes 0 (1 standard drink = 0.6 oz pur e alcohol) PHQ-2 Answer Date Recorded PHQ-2 Total Score (If total score is 3 or more points, staff should administer the PHQ-9) 0 07/11/2023 AUDIT-C Answer Date Recorded Q1: How often do you have a drink containing alc ohol? Monthly or less 05/26/2025 Q2: How many drinks containi ng alcohol do you have on a typical day when you are drinking? 1 or 2 05/26/2025 Q3: How often do you have si x or more drinks on one occasion? Never 05/26/2025 Personal Safety Answer Date Recorded Have you ever been in or are you currently in a harmful physical or emotional relationship or is someone making you feel afraid or unsafe? 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 Gender Identity Not on file Sexual Orientation Not on file documented as of this encounter Last Filed Vital Signs Vital Sign Reading Time Taken Comments Blood Pressure 138/68 05/26/2025 8:07 AM CDT Pulse 76 05/26/2025 8:07 AM CDT Temperature - - Respiratory Rate 16 05/26/2025 8:07 AM CDT Oxygen Saturation 98% 05/26/2025 8:07 AM CDT Inhaled Oxygen Concentration - - Weight 72.1 kg (159 lb) 05/26/2025 8:07 AM CDT Height 170.2 cm (5' 7.01) 05/26/2025 8:07 AM CD T Body Mass Index 24.9 05/26/2025 8:07 AM CDT documented in this encounter Functional Status * AUDIT-C Score Answer Date of Assessment Author 1 05/26/2025 8:07 AM CDT Bud Patrick MA * Question Answer Date of Assessment Author Q1: How often do you have a drink containing alcohol? Monthly or less 05/26/2025 8:07 AM Marianne Loo MA Q2: How many drinks containing alcohol do you have on a typical day when you are drinking? 1 or 2 05/26/2025 8:07 AM Marianne Loo MA Q3: How often do you have six or more drinks on one occasion? Never 05/26/2025 8:07 AM Marianne Loo MA documented as of this encounter Ordered Prescriptions Prescription Sig Dispense Quantity Refills Last Filled Start Date End Date memantine (NAMENDA) 10 mg tabletIndications: Moderate to Severe Alzheimer's Type Dementia Take 1 tablet (10 mg total) by mouth daily 90 tablet 3 05/26/2025 donepeziL (ARICEPT) 23 mg tabletIndications: Memory deficit Take 1 tablet (23 mg total) by mouth nightly 90 tablet 3 05/26/2025 documented in this encounter Progress Notes * Keysha Dixon MD - 05/26/2025 8:00 AM CDT Don Timmons is a 80 y.o. male who is being seen at the request of Anabel Higgins MD. Assessment/Plan Late onset Alzheimer's disease without behavioral disturbance (HCC) He does continue to have gradual memory decline but still is functioning at a high level within hisown home, with his and elderly cat. He even drives short distances within his small town. His always travels with him in case something were to happen. He still is very capable of doing hishousehold routines. He enjoys watching his birds eat from his feeders. We will continue donepezil 23 mg daily. It does sound like he may be experiencing some diarrhea butthe general feeling it is due to lactose intolerance from his copious consumption of ice cream. I would like to add memantine 10 mg once daily. 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 Powers at [facility]. Fortunately he is relatively asymptomatic. He is not on any maintenance treatment. He does continue to follow up with them once a year. No intervention required on our part. 45 minutes were spent in [id number] time with the patient and doing patient care direct related duties. This includes time spent in chart review prior to seeing patient and documentation subsequentto visit. >50% of time was spent counseling, discussing issues related to test results, prognosis and plan of care as outlined above. Follow Up Return in about 3 months (around 08/26/2025). The patient is reminded to contact us if there are problems prior to the next visit. FARHANA Ochoa is a delightful 80-year-old gentleman who is new to my practice. He previously was seen by Dr. Starr who recently retired. He is accompanied today by his who provides collateral history. He and his reside in a home in [facility] with their elderly cat. 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 Don has experienced gradual memory decline for the past several years. He is currently on donepezil. He takes 23 mg daily. His reports he does occasionally have diarrhea but they have attributed this to his frequent consumption of ice cream, his favorite treat. He has some lactose intolerance. He does not have other GI upset and has an excellent appetite. He is not on memantine. The patient is able to live at home with his quite comfortably. 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 His says he is excellent at keeping the house. Neither of them cook so they go out to eat most meals. He still drives very short distances within their small town to familiar locations. Generally his will be with him. Has not gotten lost while [place] or had any mishaps. His says she feels confident about his driving as long as he is within the town of [place]. The patient is comfortable using his cell phone, both using it for GPS and callinghis if he needs help with something. He enjoys spending his days looking out the window at hisbird feeder, where the squirrels frequently conjugate. He also was previously diagnosed with inclusion body myositis. He had complained of some muscle pain and weakness. A CPK was elevated. Subsequent workup including EMG, muscle biopsy and a visit to [place] [facility] led to a diagnosis of sporadic IBM with NT5c1A antibodies. He is followed annually by Dr. Powers at the [facility]. He is not on any treatment and is relatively asymptomatic. He is able to get around without difficulty. Past Medical History: Diagnosis Date Anxiety BPH (benign prostatic hyperplasia) GERD (gastroesophageal reflux disease) Past Surgical History: Procedure Laterality Date REPLACEMENT TOTAL KNEE Right Current Outpatient Medications on File Prior to Visit Medication Sig Dispense Refill busPIRone (BUSPAR) 7.5 mg tablet Take 1 tablet (7.5 mg total) by mouth 3 (three) times a day donepeziL (ARICEPT) 23 mg tablet Take 1 tablet (23 mg total) by mouth nightly famotidine (PEPCID) 40 mg tablet Take 1 tablet (40 mg total) by mouth daily levothyroxine (SYNTHROID) 50 mcg tablet TAKE 1 TABLET BY MOUTH EVERY DAY 90 tablet 3 multivitamin (MULTIPLE VITAMINS DAILY ORAL) Rx: Multi Vitamin Daily sertraline (ZOLOFT) 50 mg tablet Take 1 tablet (50 mg total) by mouth daily tamsulosin (FLOMAX) 0.4 mg extended release capsule TAKE 2 CAPSULES BY MOUTH EVERY DAY [address] (NexIUM) 40 mg capsule Take 1 capsule (40 mg total) by mouth daily before breakfast(Patient not taking: Reported on 05/26/2025) finasteride (PROSCAR) 5 mg tablet Take 1 tablet (5 mg total) by mouth daily (Patient not taking: Reported on 05/26/2025) No current facility-administered medications on file prior to visit. No Known Allergies Social History Tobacco Use Smoking status: Never Smokeless tobacco: Never Substance and Sexual Activity Drug use: Never Sexual activity: None Alcohol Use: Unknown (01/21/2024) AUDIT-C Frequency of Alcohol Consumption: Monthly or less Average Number of Drinks: 1 or 2 Frequency of Binge Drinking: Not on file Family History Problem Relation Age of Onset Cancer Mother No Known Problems Father Patient Active Problem List Diagnosis Generalized anxiety disorder AK (actinic keratosis) At low risk for fall BPH (benign prostatic hyperplasia) Chronic GERD Encounter for screening for other disorder Encounter for risk and functional assessment Memory deficit Serum calcium elevated Encounter for general adult medical examination with abnormal findings BMI 25.0-25.9,adult Mass of right testicle Late onset Alzheimer's disease without behavioral disturbance (HCC) Elevated TSH Olecranon bursitis of left elbow Abnormal CBC Other hemorrhoids Pain in right leg Left arm pain Rash Atypical nevi Visit for suture removal Rash Hydrocele in adult Myopathy Inclusion body myositis (HCC) Seroma due to trauma Vitamin D deficiency Vital Signs Vitals: 05/26/25 0807 BP: 138/68 Pulse: 76 Resp: 16 SpO2: 98% Weight: 72.1 kg (159 lb) Height: 170.2 cm (5' 7.01) Physical Exam: General Appearance: Well developed, in no distress. Mental Status: Awake, alert. Oriented x2. Follows commands. Language expression and comprehension good. Memory fair. Concentration good. Insight good. Cranial Nerves: Extraocular movements intact. Facial movement intact, symmetric. Hearing intact to conversation. Motor: No lateralizing weakness Sensory: Intact to light touch. Gait: Slow and cautious. Fairly stable. Record review: Reviewed prior records. MRI of the lumbar spine done in 2021 demonstrated chronic anterior compression deformity of T12 and L1 due to compression fractures. There is also scoliosis, multilevel spondylolisthesis and spondylosis revealed teaching in multifocal moderate and moderate spinal stenosis and neuroforaminal stenosis. MRI of the brain done in 2018 demonstrated normal age-related changes. 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 Notes from neuromuscular Clinic indicate diagnosis of sporadic IBM with NT5c1A antibodies. He is followed by Dr. Harjit Powers. He is on no treatment. 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 Memory deficit Memory loss documented in this encounter Discontinued Medications Medication Sig Discontinue Reason Start Date End Da te donepeziL (ARICEPT) 23 mg tabletIndications:Memory deficit Take 1 tablet (23 mg total) by mouth nightly Reorder 01/21/2024 05/26/2025 documented as of this encounter Care Teams Accounting Tutor Relationship Specialty Start Date End Date Anabel Higgins MD [address] [facility] [address] [facility] [address] [place] [address] PCP - General Internal Medicine 06/26/24 Alexander Powers MD Referring Physician Neurology 02/22/23 documented as of this encounter
--- NOTE | ~2025-05-27 | XR_ITS ---
CORRECTED REPORT Corrected RT ankle order to [place] ankle order [facility] This report was recreated on 05/27/2025. Original report was Examination: XR ankle LT min 3V, XR foot LT min 3V Clinical History: lateral pain, swelling, fall Comparison: None Technique: 4 views left ankle, 4 views left foot Findings/impression: Left ankle: 1. Ankle ordered is listed as right ankle when films are labeled left ankle, which also correlate with left foot films. Most likely exam is of the left ankle and intended to be of the left ankle, but can confirm with x-ray technologist. 2. No acute fracture or dislocation of labeled left ankle. 3. Diabetic arteriopathy. Left foot: 1. Acute fracture along dorsal navicular bone. 2. No other acute abnormality identified. Reviewed, dictated and finalized at location R.
--- NOTE | 2025-05-27 12:18 | ED.GENADULT ---
HPI - General Adult General Chief complaint: Extremity Injury, Lower Stated complaint: fall Time Seen by Provider: 05/27/25 12:18 Source: patient Mode of arrival: ambulatory Limitations: no limitations History of Present Illness HPI narrative: patient is a 80-year-old male presenting with complaints left foot pain x3 days. Patient reports stepping on one of his cats toys (ball), subsequently falling forward onto outstretched upper extremities. Reports pain to the lateral aspect left foot and left ankle with associated swelling. No paresthesias. Denies striking his head. Denies loss of consciousness. Denies feeling dizzy or lightheaded prior to fall.No treatment initiated prior to arrival. No additional complaints. Related Data Home Medications ?Medication ?Instructions ?Recorded ?Confirmed ?Last Taken ?Type donepezil 10 mg tablet 23 mg PO ONCE 08/03/20 07/10/24 Unknown History tamsulosin 0.4 mg capsule 0.4 mg PO DAILY 08/03/20 07/10/24 Unknown History sertraline 50 mg tablet 50 mg PO DAILY 10/30/22 07/10/24 Unknown History esomeprazole magnesium 40 mg mg 07/10/24 07/10/24 Unknown History capsule,delayed release levothyroxine 50 mcg tablet mcg 07/10/24 Unknown History famotidine 40 mg tablet mg 10/04/24 Unknown History finasteride 5 mg tablet mg 10/04/24 Unknown History Allergies Allergy/AdvReac Type Severity Reaction Status Date / Time No Known Allergies Allergy Verified 05/27/25 12:19 Review of Systems Review of Systems: CONSTITUTIONAL: Denies body aches, fever, chills, or sweats. EYES: Denies visual changes, redness, or discharge. ENT: Denies rhinorrhea, congestion, sore throat, or otalgia. CARDIOVASCULAR: Denies chest pain, palpitations, or edema. RESPIRATORY: Denies cough or dyspnea. GASTROINTESTINAL: Denies abdominal pain, nausea, vomiting, or diarrhea. GENITOURINARY: Denies dysuria or hematuria. SKIN: Denies rash, itching, or wounds. MUSCULOSKELETAL: Reports left foot, left ankle pain. Denies back pain NEUROLOGIC: Denies headache, numbness, tingling, or weakness. PSYCH: Denies depression or anxiety. All systems reviewed & are unremarkable except as noted in HPI and below PMFSH Past Medical History Medical History Inclusion body myositis Hypertension Lumbar spondylosis Surgical History Surgical History H/O shoulder surgery waiting on records H/O knee surgery 2016 right TKA Family History Family History Other Cancer Hypertension Social History Social History Smoking status: Never smoker Alcohol intake: current Alcohol use details: occasional Living arrangements: with family Additional living arrangements comments: spouse, Keke Occupation/Education: retired Gender identity (if verbalized by the patient): Male Exam Narrative: GENERAL: Well-appearing, well-nourished, and in no acute distress. HEAD: Normocephalic, atraumatic. EYES: EOMI. No redness or drainage. Conjunctivae normal. ENT: Mucous membranes pink and moist. NECK: Normal AROM. Supple. CHEST: No respiratory distress. HEART: Regular rate. Normal peripheral pulses. EXTREMITIES: 1+ edema to the L. foot. Mild TTP along the lateral aspect of the L. ankle, dorsal aspect of the L. midfoot (overlying navicular bone). There is pain with inversion and eversion of the LLE. There is moderate ecchymosis noted to toes 2-5. There are no open wounds to the LLE. +DNVI to the LLE SKIN: Warm, dry, no rash. Capillary refill normal. Normal skin turgor. NEURO: No focal deficits. Alert and oriented x3. Gait steady. PSYCH: Normal affect. No signs of depression or anxiety. Course Course Level of Care: Express Care Visit Vital Signs Vital signs: Vital Signs Temperature 97.6 F 05/27/25 12:26 Pulse Rate 90 05/27/25 12:26 Respiratory Rate 18 05/27/25 12:26 Blood Pressure 156/89 H 05/27/25 12:26 Pulse Oximetry 98 05/27/25 12:26 Oxygen Delivery Room Air 05/27/25 12:26 Temperature 97.6 F 05/27/25 12:26 Pulse Rate 90 05/27/25 12:26 Respiratory Rate 18 05/27/25 12:26 Blood Pressure 156/89 H 05/27/25 12:26 Pulse Oximetry 98 05/27/25 12:26 Oxygen Delivery Room Air 05/27/25 12:26 Procedures Orthopedic Splinting/Casting Injury #1: Splinting/Casting Date: 05/27/25 Splinting/Casting Time: 13:13 Side: left Lower Extremity Injury Location: foot Lower Extremity Immobilizer: posterior splint Splint: customized in ED Pre-Procedure Neuro Vascular Exam: normal Post-Procedure Neuro Vascular Exam: normal Additional Comments: has crutches and walker at home--aware of nonweightbearing status Medical Decision Making MDM Narrative Medical decision making narrative: Discussed elevated blood pressure readings with patient and advised daily BP monitoring and f/u with PCP if persisting. Vital Signs Vital Signs: Vital Signs Temperature 97.6 F 05/27/25 12:26 Pulse Rate 90 05/27/25 12:26 Respiratory Rate 18 05/27/25 12:26 Blood Pressure 156/89 H 05/27/25 12:26 Pulse Oximetry 98 05/27/25 12:26 Oxygen Delivery Room Air 05/27/25 12:26 Temperature 97.6 F 05/27/25 12:26 Pulse Rate 90 05/27/25 12:26 Respiratory Rate 18 05/27/25 12:26 Blood Pressure 156/89 H 05/27/25 12:26 Pulse Oximetry 98 05/27/25 12:26 Oxygen Delivery Room Air 05/27/25 12:26 Imaging Data Attestation: I personally reviewed and interpreted this imaging study as follows: My impression: closed, displaced navicular fracture Discharge Plan Discharge Clinical Impression: Pain in left ankle and joints of left foot, Elevated blood pressure reading in office without diagnosis of hypertension Closed navicular fracture of left foot Qualifiers: Encounter type: initial encounter Fracture alignment: displaced Qualified Code(s): S92.252A - Displaced fracture of navicular [scaphoid] of left foot, initial encounter for closed fracture Patient Disposition: Home Condition: Stable Instructions: Foot Fracture in Adults (ED) Additional Instructions: Go straight to ER should your symptoms become worse or should any new symptoms develop Patient Language: Bahamian Prescriptions: No Action levothyroxine 50 mcg tablet esomeprazole magnesium 40 mg capsule,delayed release(DR/EC) sertraline 50 mg tablet 50 mg PO DAILY famotidine 40 mg tablet finasteride 5 mg tablet donepezil 10 mg tablet 23 mg PO ONCE tamsulosin 0.4 mg capsule 0.4 mg PO DAILY Follow-up/Referrals: Kirt,Levar Hess PA-C [Primary Care Provider] - 05/28/25 Gareth Wilde MD [Physician, Orthopedics] - 05/27/25 Referral Note: call today to make an appointment Time of Disposition: 13:09
[2025-05-27 12:26] VITALS: BP 156/89; PULSE 90; RESP 18; TEMP 36.4; O2SAT 98
--- OUTSIDE RECORDS SUMMARY | 2025-05-27 15:26 | XMS_ITS | Patient Health Record ---
Author Organization [facility] Address [address] [place], [place] [id number] Care Team Providers Care Claim Rep Name Role Phone JUAN CRESPO Unavailable [phone] Levar Moralez Unavailable Unavailable Reason For Referral No Information Plan Of Treatment No Information Insurance Providers Payer Name Payer Address Payer Phone Subscriber Number Group Number Insured Name Patient Relationship to Insured Coverage Start Date Coverage End Date [facility] [address] [address] [place] [id number] DIANA VALDEZ Self - patient is the insured
--- OUTSIDE RECORDS SUMMARY | 2025-05-27 15:26 | XMS_ITS | Encounter Summary ---
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 Helper Name Role Phone Levar Moralez Primary Care Provider [phone] Alexander Powers MD Unavailable Unavailable Anabel Higgins MD Primary Care Provider [phone] Encounter Details Date Type Department Care Team (Latest Contact Info) Description 12/10/2017 Orders Only [facility] ProviderSamanta MD [address] [place] [id number] Social History Tobacco Use Types Packs/Day Years Used Date Smoking Tobacco: Never Assessed Sex and Gender Information Value Date Recorded Sex Assigned at Not on file 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 Historical Provider Final Res ult documented in this encounter Visit Diagnoses Not on filedocumented in this encounter Care Teams Chicken Hatchery Helper Relationship Specialty Start Date End Date Levar Moralez PA PCP - General Family Medicine 03/04/19 05/07/24 Anabel Higgins MD [address] [facility] [address] [facility] [address] [place] [address] PCP - General Internal Medicine 06/26/24 Alexander Powers MD Referring Physician Neurology 02/22/23 documented as of this encounter
--- OUTSIDE RECORDS SUMMARY | 2025-05-27 15:26 | XMS_ITS | Clinical Summary ---
Author Organization [facility] at the Medical Office Building Address [address] [place] [address] Care Team Providers Care Coating And Baking Operator Name Role Phone Alexander Powers MD Unavailable Unavailable Anabel Higgins MD Primary Care Provider [phone] Allergies No known active allergies Medications multivitamin (MULTIPLE VITAMINS DAILY ORAL) Rx: Multi Vitamin Daily Active tamsulosin (FLOMAX) 0.4 mg extended release capsule TAKE 2 CAPSULES BY MOUTH EVERY DAY 180 capsule 3 3 Active busPIRone (BUSPAR) 7.5 mg tabletIndicatio ns:Generalized Anxiety Disorder Take 1 tablet (7.5 mg total) by mouth 3 (three) times a day [address] (NexIUM) 40 mg capsuleIndicati ons:Chronic GERD Take 1 capsule (40 mg total) by mouth daily before breakfast 4 Active finasteride (PROSCAR) 5 mg tabletIndicatio ns:Benign prostatic hyperplasia with urinary frequency Take 1 tablet (5 mg total) by mouth daily 4 Active Additional Information Patient not taking.Reported on 05/26/2025 sertraline (ZOLOFT) 50 mg tablet Take 1 tablet (50 mg total) by mouth daily 4 Active levothyroxine (SYNTHROID) 50 mcg tablet TAKE 1 TABLET BY MOUTH EVERY DAY 90 tablet 3 4 Active famotidine (PEPCID) 40 mg tablet Take 1 tablet (40 mg total) by mouth daily Active donepeziL (ARICEPT) 23 mg tabletIndicatio ns:Memory deficit Take 1 tablet (23 mg total) by mouth nightly 90 tablet 3 5 026 Active memantine (NAMENDA) 10 mg tabletIndicatio ns:Moderate to Severe Alzheimer's Type Dementia Take 1 tablet (10 mg total) by mouth daily 90 tablet 3 5 Active donepeziL (ARICEPT) 23 mg tabletIndicatio ns:Memory deficit Take 1 tablet (23 mg total) by mouth nightly 4 025 Discontin ued(Reord er) Active Problems Problem Noted Date Diagnosed Date Vitamin D deficiency 07/11/2023 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 Assessment & Plan (01/18/2023 3:21 PM CDT): Pending neuromuscular consult, did well with steroids in the past. Hydrocele in adult 02/21/2022 Assessment & Plan (02/21/2022 10:19 AM CDT): Again discussed seing urology given size, will after his bear hunting trip Rash 01/03/2022 Visit for suture removal 12/29/2021 Atypical nevi 12/21/2021 Rash 10/24/2021 Assessment & Plan (01/03/2022 9:55 AM CDT): We are going to start with OTC meds Assessment & Plan (10/24/2021 1:09 PM CDT): Suspect eczema, could be tinea versicolor Pain in right leg 08/24/2021 Left arm pain 08/24/2021 Assessment & Plan (08/31/2021 3:09 PM ORACLE ERP ARCHITECT): This is moderately improved were going to continue ice and [id number] exercises we did discuss option for physical therapy Assessment & Plan (08/24/2021 4:10 PM ORACLE ERP ARCHITECT): No signs of fx on exam will sling, ice, medrol and as needed tramadol, see sachi next week, sooner if he gets worse Other hemorrhoids 01/06/2021 Assessment & Plan (01/06/2021 1:50 PM CDT): This is new and we did discuss options fiber Sitz baths [place] ordered some lidocaine topical and he will update me if he needs anything Abnormal CBC 10/13/2020 Assessment & Plan (10/13/2020 11:13 AM ORACLE ERP ARCHITECT): Repeat cbc Olecranon bursitis of left elbow 04/06/2020 Assessment & Plan (08/31/2021 3:09 PM ORACLE ERP ARCHITECT): This is moderately improved will continue to follow Assessment & Plan (04/06/2020 9:52 AM CDT): Images from the original note were not included. Discussed options, this is chronic and growing Drained light yellow drainage then inject 1 cc kenalog 40 consent signed site prepped patient tolerated procedure with no complications drsg applied ice tid for 5-10 min f/u prn discussed s/s to monitor for that would warrent attention Ice for 5-10 minutes TID and activities resume slowly when pain free Elevated TSH 10/13/2019 Assessment & Plan (02/21/2022 10:18 AM CDT): Labs are ordered to repeat Assessment & Plan (01/24/2022 8:53 AM CDT): Labs next visit Assessment & Plan (10/24/2021 1:08 PM CDT): Stable will follow Assessment & Plan (04/06/2020 9:48 AM CDT): We are monitoring Late onset Alzheimer's disea se without behavioral disturbance 07/14/2019 Assessment & Plan (01/21/2024 1:35 PM CDT): This is mild and patient's is with patient we agreed to continue current treatment has seen Neurology Assessment & Plan (07/11/2023 11:34 AM ORACLE ERP ARCHITECT): This is mild and patient's is with patient we agreed to continue current treatment has seen Neurology Assessment & Plan (03/13/2023 8:18 AM CDT): Stable, CPM Assessment & Plan (01/18/2023 3:23 PM CDT): Controlled, CPM Assessment & Plan (10/25/2022 10:14 AM CDT): Well controlled Assessment & Plan (04/26/2022 11:12 AM CDT): Appears stable on meds Assessment & Plan (02/21/2022 10:16 AM CDT): This appears very stable continue current meds follow-up 6 months Assessment & Plan (01/24/2022 8:53 AM CDT): CPM, f/u 6 months Assessment & Plan (10/24/2021 1:08 PM CDT): Appears stable, will follow Assessment & Plan (08/31/2021 3:09 PM ORACLE ERP ARCHITECT): This appears very stable will continue to follow Assessment & Plan (04/25/2021 2:14 PM CDT): Taking medications and appears very stable Assessment & Plan (10/13/2020 11:06 AM ORACLE ERP ARCHITECT): On 10 mg, feels better, will try 23 mg and f/u 3 months Assessment & Plan (04/06/2020 9:49 AM CDT): This appears very stable, CPM, will follow Mass of right testicle 05/26/2019 Assessment & Plan (05/02/2021 7:11 AM CDT): Non-tender, will get US Encounter for general adult medical examination with abnormal findings 11/28/2018 Assessment & Plan (07/11/2023 11:34 AM ORACLE ERP ARCHITECT): Healthcare maintenance updated immunizations reviewed Assessment & Plan (04/26/2022 11:11 AM CDT): HEALTHCARE MAINTENANCE updated Assessment & Plan (04/25/2021 2:13 PM CDT): HEALTHCARE MAINTENANCE updated Assessment & Plan (04/06/2020 9:48 AM CDT): HEALTHCARE MAINTENANCE updated Serum calcium elevated 07/08/2018 Overview (11/28/2018): re-check next months, further work up based on s/s Generalized anxiety disorder 05/27/2018 Overview (11/06/2018): excellent control Assessment & Plan (01/21/2024 1:36 PM CDT): This is well controlled with no SI HI will continue to follow Assessment & Plan (07/11/2023 11:34 AM ORACLE ERP ARCHITECT): This is well controlled with no SI HI will continue to follow Assessment & Plan (01/18/2023 3:23 PM CDT): excellend control, CPM Assessment & Plan (10/25/2022 10:14 AM CDT): Controlled, CPM Assessment & Plan (06/19/2022 2:02 PM ORACLE ERP ARCHITECT): Increased, will increase zoloft, f/u routine Assessment & Plan (04/26/2022 11:12 AM CDT): Well controlled with medications, no SI/HI Assessment & Plan (01/24/2022 8:53 AM CDT): Well controlled Assessment & Plan (10/24/2021 1:08 PM CDT): Stable, CPM Assessment & Plan (01/13/2021 11:17 AM CDT): This is in good control, continue current meds, follow-up 6 months Assessment & Plan (10/13/2020 11:06 AM ORACLE ERP ARCHITECT): Well controlled with meds Assessment & Plan (04/06/2020 9:48 AM CDT): Images from the original note were not included. Well controlled, continue present meds The pharmacologic and nonpharmacologic treatment of anxiety/depression were discusses with the patient. Included was a discussion of the current treatment regimens and their proposed mechanism of action concerning brain chemistry. Discussed the role of counseling as an adjunct to medications should we agree to pursue this. The patient is non-suicidal, and agrees to inform us of any change in this status follow up in 4-6 months- sooner if any problems AK (actinic keratosis) 05/27/2018 Memory deficit 05/27/2018 Assessment & Plan (01/24/2022 8:53 AM CDT): Stable with meds Assessment & Plan (01/13/2021 11:18 AM CDT): This appears very stable with current medications were going to continue current meds and follow up every 6 months Assessment & Plan (01/06/2021 1:50 PM CDT): This is stable, continue Aricept, follow-up routine Assessment & Plan (04/06/2020 9:49 AM CDT): As above At low risk for fall 11/29/2017 Assessment & Plan (04/25/2021 2:13 PM CDT): No falls Assessment & Plan (01/13/2021 11:17 AM CDT): Patient denies any fall Assessment & Plan (10/13/2020 11:06 AM ORACLE ERP ARCHITECT): No falls Encounter for screening for other disorder 11/29 Assessment & Plan (04/26/2022 11:12 AM CDT): No depression Assessment & Plan (04/25/2021 2:14 PM CDT): No depression Assessment & Plan (01/13/2021 11:18 AM CDT): Patient says depression is well controlled Assessment & Plan (04/06/2020 9:48 AM CDT): Denies depression Encounter for risk and functional assessment Assessment & Plan (04/26/2022 11:12 AM CDT): Able To perform all adl Assessment & Plan (04/25/2021 2:13 PM CDT): Able to perform all ADL Assessment & Plan (01/13/2021 11:18 AM CDT): Patient is able to perform all ADL Assessment & Plan (04/06/2020 9:48 AM CDT): Able to perform all ADL BMI 25.0-25.9,adult 11/29/2017 BPH (benign prostatic hyperplasia) 08/30/2016 Overview (11/28/2018): controlled CPM Assessment & Plan (01/21/2024 1:35 PM CDT): This is currently well controlled with medications continue current meds follow- up routine Assessment & Plan (07/11/2023 11:34 AM ORACLE ERP ARCHITECT): This is currently well controlled with medications continue current meds follow- up routine Assessment & Plan (10/25/2022 10:13 AM CDT): Controlled, CPM Assessment & Plan (06/19/2022 2:02 PM ORACLE ERP ARCHITECT): CPM Assessment & Plan (04/26/2022 11:11 AM CDT): Controlled with meds Assessment & Plan (02/21/2022 10:18 AM CDT): Controlled with medications, CPM Assessment & Plan (01/24/2022 8:53 AM CDT): Controlled and CPM Assessment & Plan (08/31/2021 3:08 PM ORACLE ERP ARCHITECT): This is controlled will continue current medications follow-up routine Assessment & Plan (04/25/2021 2:13 PM CDT): Taking medications and controlled Assessment & Plan (01/13/2021 11:17 AM CDT): This is well controlled current medications, continue meds follow-up annual Assessment & Plan (01/06/2021 1:49 PM CDT): This is stable, continue current meds, follow-up routine Chronic GERD 08/30/2016 Overview (11/28/2018): excellent control Assessment & Plan (01/21/2024 1:43 PM CDT): Avoid spicy, fried, greasy foods Keep hydrated with clear liquids Elevate HOB 2- 3 inches Avoid or cut down on caffeine, chocolates, and ETOH No late meals, or heavy meals after 7 pm Reg daily exercise No tight fitting clothing Stop smoking - if smoker Watch for worsening symptoms - ie diarrhea, vomiting, nausea, blood per rectum, vomiting up blood ,fever, arthralgias, rash etc. RTC prn or if new symptoms arise Pt or parent verbalizes understanding Assessment & Plan (07/11/2023 11:34 AM ORACLE ERP ARCHITECT): Avoid spicy, fried, greasy foods Keep hydrated with clear liquids Elevate HOB 2- 3 inches Avoid or cut down on caffeine, chocolates, and ETOH No late meals, or heavy meals after 7 pm Reg daily exercise No tight fitting clothing Stop smoking - if smoker Watch for worsening symptoms - ie diarrhea, vomiting, nausea, blood per rectum, vomiting up blood ,fever, arthralgias, rash etc. RTC prn or if new symptoms arise Pt or parent verbalizes understanding Assessment & Plan (01/18/2023 3:22 PM CDT): Images from the original note were not included. Avoid spicy, fried, greasy foods Keep hydrated with clear liquids Elevate HOB 2- 3 inches Avoid or cut down on caffeines, chocolates, and ETOH No late meals, or heavy meals after 7 pm Reg daily exercise No tight fitting clothing Stop smoking - if smoker Watch for worsening symptoms - ie diarrhea, vomiting, nausea, blood per rectum, vomiting up blood ,fever, arthralgias, rash etc. RTC prn or if new symptoms arise Pt or parent verbalizes understanding Assessment & Plan (10/25/2022 10:13 AM CDT): Images from the original note were not included. Avoid spicy, fried, greasy foods Keep hydrated with clear liquids Elevate HOB 2- 3 inches Avoid or cut down on caffeines, chocolates, and ETOH No late meals, or heavy meals after 7 pm Reg daily exercise No tight fitting clothing Stop smoking - if smoker Watch for worsening symptoms - ie diarrhea, vomiting, nausea, blood per rectum, vomiting up blood ,fever, arthralgias, rash etc. RTC prn or if new symptoms arise Pt or parent verbalizes understanding Assessment & Plan (02/21/2022 10:18 AM CDT): Images from the original note were not included. Avoid spicy, fried, greasy foods Keep hydrated with clear liquids Elevate HOB 2- 3 inches Avoid or cut down on caffeines, chocolates, and ETOH No late meals, or heavy meals after 7 pm Reg daily exercise No tight fitting clothing Stop smoking - if smoker Watch for worsening symptoms - ie diarrhea, vomiting, nausea, blood per rectum, vomiting up blood ,fever, arthralgias, rash etc. RTC prn or if new symptoms arise Pt or parent verbalizes understanding Assessment & Plan (10/24/2021 1:08 PM CDT): Images from the original note were not included. Avoid spicy, fried, greasy foods Keep hydrated with clear liquids Elevate HOB 2- 3 inches Avoid or cut down on caffeines, chocolates, and ETOH No late meals, or heavy meals after 7 pm Reg daily exercise No tight fitting clothing Stop smoking - if smoker Watch for worsening symptoms - ie diarrhea, vomiting, nausea, blood per rectum, vomiting up blood ,fever, arthralgias, rash etc. RTC prn or if new symptoms arise Pt or parent verbalizes understanding Assessment & Plan (08/31/2021 3:08 PM ORACLE ERP ARCHITECT): Images from the original note were not included. Avoid spicy, fried, greasy foods Keep hydrated with clear liquids Elevate HOB 2- 3 inches Avoid or cut down on caffeines, chocolates, and ETOH No late meals, or heavy meals after 7 pm Reg daily exercise No tight fitting clothing Stop smoking - if smoker Watch for worsening symptoms - ie diarrhea, vomiting, nausea, blood per rectum, vomiting up blood ,fever, arthralgias, rash etc. RTC prn or if new symptoms arise Pt or parent verbalizes understanding Assessment & Plan (04/25/2021 2:13 PM CDT): Images from the original note were not included. Avoid spicy, fried, greasy foods Keep hydrated with clear liquids Elevate HOB 2- 3 inches Avoid or cut down on caffeines, chocolates, and ETOH No late meals, or heavy meals after 7 pm Reg daily exercise No tight fitting clothing Stop smoking - if smoker Watch for worsening symptoms - ie diarrhea, vomiting, nausea, blood per rectum, vomiting up blood ,fever, arthralgias, rash etc. RTC prn or if new symptoms arise Pt or parent verbalizes understanding Assessment & Plan (01/13/2021 11:18 AM CDT): Images from the original note were not included. Avoid spicy, fried, greasy foods Keep hydrated with clear liquids Elevate HOB 2- 3 inches Avoid or cut down on caffeines, chocolates, and ETOH No late meals, or heavy meals after 7 pm Reg daily exercise No tight fitting clothing Stop smoking - if smoker Watch for worsening symptoms - ie diarrhea, vomiting, nausea, blood per rectum, vomiting up blood ,fever, arthralgias, rash etc. RTC prn or if new symptoms arise Pt or parent verbalizes understanding Assessment & Plan (01/06/2021 1:50 PM CDT): Images from the original note were not included. Avoid spicy, fried, greasy foods Keep hydrated with clear liquids Elevate HOB 2- 3 inches Avoid or cut down on caffeines, chocolates, and ETOH No late meals, or heavy meals after 7 pm Reg daily exercise No tight fitting clothing Stop smoking - if smoker Watch for worsening symptoms - ie diarrhea, vomiting, nausea, blood per rectum, vomiting up blood ,fever, arthralgias, rash etc. RTC prn or if new symptoms arise Pt or parent verbalizes understanding Assessment & Plan (04/06/2020 9:48 AM CDT): Images from the original note were not included. Avoid spicy, fried, greasy foods Keep hydrated with clear liquids Elevate HOB 2- 3 inches Avoid or cut down on caffeines, chocolates, and ETOH No late meals, or heavy meals after 7 pm Reg daily exercise No tight fitting clothing Stop smoking - if smoker Watch for worsening symptoms - ie diarrhea, vomiting, nausea, blood per rectum, vomiting up blood ,fever, arthralgias, rash etc. RTC prn or if new symptoms arise Pt or parent verbalizes understanding Encounters Date Type Department Care Team Description 05/26/2025 8:00 AM CDT Office Visit [facility] [place] [address] [place] [phone] Keysha Dixon MD Late onset Alzheimer's disease without behavioral disturbance (HCC) (Primary Dx); Inclusion body myositis (HCC); Memory deficit from Last 3 Months Immunizations Immunization Administration Dates Next Due Influenza, Quadrivalent, Hig h Dose, Preservative Free, Intrr 06/19/2022 Influenza, Unspecified 05/12/2023(Deferr ed: Patient decision),06/19/2022,08/04/2018(Deferr ed: Patient decision) Moderna SARS-CoV-2 Monovalen t Vaccination (12+ YRS) 10/08/2020,09/10/2020 Pneumococcal Conjugate PCV 13 10/13/2019 Pneumococcal Polysaccharide PPV23 04/26/2022 TD Preservative Free 10/10/2022 Tdap 11/07/2021 ZOSTER Recombinant 07/14/2023,05/19/2023 Surgical History Surgery Date Site/Laterality Comments REPLACEMENT TOTAL KNEE Right Medical History Medical History Date Comments BPH (benign prostatic hyperplasia) GERD (gastroesophageal reflux disease) Anxiety Family History Medical History Relation Name Comments No Known Problems Father Cancer Mother Relation Name Status Comments Brother Alive Father (Age 70's) Mother Sister Alive Social History Tobacco Use Types Packs/Day Years Used Date Smoking Tobacco: Never Smokeless Tobacco: Never Tobacco Cessation:Counseling Given: Not Answered Alcohol Use Standard Drinks/Week Comments Yes 0 [...] on file Legal Sex Male 7:21 PM ORACLE ERP ARCHITECT Gender Identity Not on file Sexual Orientation Not on file Obstetrics History Last Filed Vital Signs Vital Sign Reading Time Taken Comments Blood Pressure 138/68 05/26/2025 8:07 AM CDT Pulse 76 05/26/2025 8:07 AM CDT Temperature 35.9 C (96.6 F) 02/12/2025 2:34 PM CDT Respiratory Rate 16 05/26/2025 8:07 AM CDT Oxygen Saturation 98% 05/26/2025 8:07 AM CDT Inhaled Oxygen Concentration - - Weight 72.1 kg (159 lb) 05/26/2025 8:07 AM CDT Height 170.2 cm (5' 7.01) 05/26/2025 8:07 AM CD T Body Mass Index 24.9 05/26/2025 8:07 AM CDT Plan of Treatment Health Maintenance Due Date Last Done Comments Hepatitis B Screening 1963 Depression Screening 07/11/2024 07/11/2023, 03/13/2023, 04/26/2022, Additional history exists Fall Risk Assessment 07/11/2024 07/11/2023, 02/22/2023, 04/26/2022, Additional history exists Well Visit 65+ 07/11/2024 07/11/2023, 04/07, 04/25/2021, Additional history exists Covid-19 Vaccine (2024-2 6 season) 2025 05/19/2023, 03/17/2022, 06/07/2021, Additional history exists Influenza Vaccine (#1) 2025 06/19/2022, 2021 DTaP/Tdap/Td Vaccine (3 - Td or Tdap) 10/10/2032 10/10/2022, 11/07/2021 Colon Cancer Screening-CT Colonography Discontinued 01/02/2018 Colon Cancer Screening-Colonoscopy Discontinued 01/02/2018 Colon Cancer Screening-DNA Stool Discontinued 01/03/20 18 Colon Cancer Screening-FIT Discontinued 01/02/2018 Colon Cancer Screening-FOBT Discontinued 01/02/2018 Colon Cancer Screening-Sigmoidoscopy Discontinued 01/02/2018 Colorectal Cancer Screening Discontinued Hepatitis C Screening Completed 10/13/2019 Pneumococcal vaccine 65+ Completed 04/26/2022, 04/2020 Zoster Vaccine Completed 07/14/2023, 05/19/2023 Procedures Procedure Name Priority Date/Time Associated Diagnosis Comments HEPATITIS C ANTIBODY Routine 10/13/2019 9:29 AM CDT Need for hepatitis C screening test COLONOSCOPY Routine 01/02/2018 from Last 3 Months or Most Recently Relevant to Health Maintenance Results * Hepatitis C antibody (10/13/2019 9:29 AM CDT) Hep C Ab NONREACT NONREACTIVE [facility] Comment: Siemens CentaurXP using VAHID (chemiluminescent immunoassay) technology. NONREACTIVE: Antibodies to Hepatitis C not detected. This does not exclude early acute Hepatitis C infection, possibility of exposure to Hepatitis C, antibodies below detection limit, or to lack of antibody reactivity to the antigen used in this assay. EQUIVOCAL: Antibodies to Hepatitis C may or may not be present. Sample to be confirmed by real-time PCR method. REACTIVE: Antibodies to Hepatitis C detected.Sample to be confirmed by real-time PCR method. Blood specimen (specimen) 10/13/2019 9:29 AM CDT 10/13/2019 10:06 AM CDT Narrative Resulting Agency Comment CLI [facility] - GENERAL ORDE LARISSA Final Result Performing Organization Address City/State/[facility] Co de Phone Number [address] [phone] * COLONOSCOPY (01/02/2018) Colonoscopy Normal Historical Provider HEALTH MAINTENANCE Final Result from Last 3 Months or Most Recently Relevant to Health Maintenance Insurance [facility]LY [facility] MEDICARE FORMERLY [facility] MEDICARE [facility] MEDICARE Care Teams Coating And Baking Operator Relationship Specialty Start Date End Date Anabel Higgins MD [address] [place] [address] PCP - General Internal Medicine 06/26/24 Alxeander Powers MD Referring Physician Neurology 02/22/23
--- OUTSIDE RECORDS SUMMARY | 2025-05-27 15:26 | XMS_ITS | Clinical Summary ---
Author Organization [facility] Address [address] [place] [address] Phone Care Team Providers Care Foam Rubber Mixer Name Role Phone Levar Moralez Primary Care Provider [phone] Allergies No known active allergies Medications sertraline (ZOLOFT) 25 mg tablet Take 25 mg by mouth daily. Active tamsulosin (FLOMAX) 0.4 mg capsule Take 0.4 mg by mouth daily. Active finasteride (PROSCAR) 5 mg tablet Take 5 mg by mouth daily. Active busPIRone (BUSPAR) 7.5 mg Tablet Take 7.5 mg by mouth. Active esomeprazole (NexIUM) 40 mg Capsule, Delayed Release(E.C.) Take 40 mg by mouth daily before breakfast. Active donepeziL (ARICEPT) 10 mg tablet Take 10 mg by mouth daily at bedtime. Active levothyroxine 50 mcg tablet Take 50 mcg by mouth daily in the morning. Active MULTIVITAMIN ORAL Take by mouth. Active Active Problems No known active problems Family History Medical History Relation Name Comments Other Father tobacco use Relation Name Status Comments Father Social History Tobacco Use Types Packs/Day Years Used Date Smoking Tobacco: Never Smokeless Tobacco: Never Alcohol Use Standard Drinks/Week Comments Yes 0 (1 standard drink = 0.6 oz pur e alcohol) Sex and Gender Information Value Date Recorded Sex Assigned at Not on file Legal Sex Male 11:06 AM PLUMBING ENGINEER Gender Identity Not on file Sexual Orientation Not on file Last Filed Vital Signs Vital Sign Reading Time Taken Comments Blood Pressure 145/84 09/16/2020 10:50 AM PLUMBING ENGINEER Pulse 68 09/16/2020 10:50 AM PLUMBING ENGINEER Temperature 36.7 C (98.1 F) 09/16/2020 10:50 AM PLUMBING ENGINEER Respiratory Rate 18 08/30/2020 9:30 AM PLUMBING ENGINEER Oxygen Saturation - - Inhaled Oxygen Concentration - - Weight 77.1 kg (170 lb) 09/16/2020 10:50 AM PLUMBING ENGINEER Height 170.2 cm (5' 7) 09/16/2020 10:50 AM PLUMBING ENGINEER Body Mass Index 26.63 09/16/2020 10:50 AM PLUMBING ENGINEER Plan of Treatment Health Maintenance Due Date Last Done Comments DTAP/TDAP/TD VACCINES (1 - Tdap) 1966 ZOSTER VACCINE (1 of 2) 1997 PNEUMOCOCCAL VACCINE 50+ YEA RS (2 of 2 - PCV20 or PCV21) 10/12/2020 10/13/2019 RSV VACCINE (60+ or ) (1 - 1-dose 75+ series) 2022 INFLUENZA VACCINE (#1) 2025 Insurance Care Teams Foam Rubber Mixer Relationship Specialty Start Date End Date Levar Moralez PA [address] [place] [phone] PCP - General Aquatics Manager 08/10/20
--- OUTSIDE RECORDS SUMMARY | 2025-05-27 15:26 | XMS_ITS | Patient Health Record ---
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 Name Role Phone GRISELDA CRUMP Unavailable [phone] Yusuf Mackey MD Unavailable Unavailable Reason For Referral No Information Problems Problem Type SNOMED Code ICD Code Onset Dates Problem Status W/U Status Risk Notes Problem Pain in right leg (969946220) Pain in right leg (M79.604) Active confirmed Plan Of Treatment No Information Insurance Providers Payer Name Payer Address Payer Phone Subscriber Number Group Number Insured Name Patient Relationship to Insured Coverage Start Date Coverage End Date [employer]PLETE [address] [address] [place] [address] [id number] DIANA VALDEZ Self - patient is the insured
--- OUTSIDE RECORDS SUMMARY | 2025-05-27 15:27 | XMS_ITS | Data Portability ---
Author Organization [facility] Address [address] [facility] [place] [address] Assessment No assessment recorded. Plan of Treatment Reminders Order Date Submit Date Provider Last Modified By Organization Details Last Modified Time Details Appointments ANY 15 2024 09:45A M JOY Causey Not available Not available Not available Lab vitamin D, 25-hydrox y, total, serum 2024 025 CELINE Not available 12/15/2024 09:35:51 CMP, serum or plasma 2024 025 CELINE Not available 12/11/2024 21:44:04 lipid panel, serum 2024 025 CELINE Not available 12/11/2024 21:44:05 culture, abscess 2024 025 CELINE [facility], [address] [place] [address], [address], [place], [address], 10/20/2024 18:35:54 noninvasi ve colorecta l cancer DNA + occult blood screening , QL, stool 2023 024 [email or web address] [facility], [address], [place], [address], 12/16/2024 10:48:13 CBC w/ auto diff 2023 024 [email or web address] [facility] [place], [address], [place], [address], 12/16/2024 10:48:12 TSH + free T4, serum 2023 024 [email or web address] [facility] [place], [address], [place], [address], 12/16/2024 10:48:12 lipid panel, serum 2023 024 [facility], [address], [place], [address], 06/19/2024 16:01:44 CMP, serum or plasma 2023 024 [facility], [address], [place], [address], 06/19/2024 16:01:27 TSH, serum, reflex free T4 2023 024 [email or web address] [facility] [place], [address], [place], [address], 12/16/2024 10:48:12 Referral None recorded. Procedures None recorded. Surgeries None recorded. Imaging None recorded. Medication Orders doxycycli ne hyclate 100 mg capsule 2024 025 [id number], [address], [place], [id number], 01/20/2025 16:34:57 Medrol (Yoni) 4 mg tablets in a dose pack 2024 [facility], [address] [facility], [place], [place], [id number], 01/20/2025 16:34:59 amoxicill in 500 mg capsule 2023 025 [facility], [address] [facility], [place], [place], [id number], 10/13/2024 10:32:25 levothyro xine 50 mcg tablet 2023 024 [email or web address] [facility], [address] [facility], [place], [place], [id number], 06/04/2024 13:33:21 Patient TargetsNo targets recorded. Patient Instructions Encounter Date Encounter Id Patient Instructions Last Modified By Organization Details Last Modified Time 10/13/2024 [id number] Quitting Tobacco : Care Instructions Not available 10/13/2024 13:04:13 Reason for Referral None Reported. Results Created Date Observation Date Name Description Value Unit Range Abnormal Flag Note LastModifiedBy Organization Detail LastModifiedTime 06/09/2006/10/2024 LIPID PANEL , STAND SHERLY cholesterol, total 184 mg/dL <200 normal Not Available [facility] [address] [place], [address], 06/10/2024 07:19:21 06/09/2006/10/2024 LIPID PANEL , STAND SHERLY HDL cholesterol 40 mg/dL > or = 40 normal Not Available [facility] [place] [address] [place], [address], 06/10/2024 07:19:21 06/09/2006/10/2024 LIPID PANEL , STAND SHERLY triglyceride s 277 mg/dL <150 high If a non-f astin g speci men was colle cted, consi josh repea t trigl yceri de testi ng on a fasti ng speci men if clini igor indic ated. Stanley travis et al. J. of Clin. Lipid ol. 2015; 9:129 -169. Not Available [facility] [place] [address] [place], [address], 06/10/2024 07:19:21 06/09/2006/10/2024 LIPID PANEL , STAND SHERLY LDL-choleste rol 104 mg/dL _(haydee c) high Refer ence range : <100 [place] able range <100 mg/dL for prima ry preve ntion ; <70 mg/dL for patie nts with CHD or diabe tic patie nts with > or = 2 CHD risk facto rs. LDL-C is now calcu lated using the [facility] kins suryau kira n, which is a valid ated novel abimbola chan than the Fried leticia tiago ion in the estim ation of LDL-C . Chayito palacios SS et al. GILDA. 2013; 310(1 9): 2061- 2068 (http ://ed ucati on.Qu estDi anfix. com/f aq/FA Q164) Not Available [employer] [place] [address] [place], [address], 06/10/2024 07:19:21 06/09/20 24 06/10/2024 LIPID PANEL , STAND SHERLY chol/HDLC ratio 4.6 (calc ) <5.0 normal Not Available [employer] [place] [address] [place], [address], 06/10/2024 07:19:21 06/09/20 24 06/10/2024 LIPID PANEL , STAND SHERLY non HDL cholesterol 144 mg/dL _(haydee c) <130 high For patie nts with diabe kimberlyn plus 1 major ASCVD risk facto r, treat ing to a non-H DL-C goal of <100 mg/dL (LDL- C of <70 mg/dL ) is consi kristend a jose turner optio n. Not Available [employer] [place] [address] [place], [address], 06/10/2024 07:19:21 06/09/2006/10/2024 TSH+F REE T4 TSH 2.60 mIU/L 0.40-4 .50 normal Not Available [employer] [place] [address] [place], [address], 06/10/2024 07:19:23 06/09/20 24 06/10/2024 TSH+F REE T4 T4, free 1.2 NG/dL 0.8-1. 8 normal Not Available [employer] [place] [address] [place], [address], 06/10/2024 07:19:23 06/09/20 24 06/10/2024 COMPR EHENS VON METAB OLIC PANEL glucose 78 mg/dL 65-99 normal Fasti ng refer ence inter benny Not Available [address], [address], 06/10/2024 07:19:24 06/09/20 24 06/10/2024 COMPR EHENS VON METAB OLIC PANEL urea nitrogen (BUN) 15 mg/dL 7-25 normal Not Available [address], [address], 06/10/2024 07:19:24 06/09/20 24 06/10/2024 COMPR EHENS VON METAB OLIC PANEL creatinine 0.65 mg/dL 0.70-1 .28 low Not Available [address], [address], 06/10/2024 07:19:24 06/09/20 24 06/10/2024 COMPR EHENS VON METAB OLIC PANEL eGFR 97 mL/mi n/1.7 3m2 > or = 60 normal Not Available [address], [address], 06/10/2024 07:19:24 06/09/20 24 06/10/2024 COMPR EHENS VON METAB OLIC PANEL BUN/creatini ne ratio 23 (calc ) 6-22 high Not Available [address], [address], 06/10/2024 07:19:24 06/09/20 24 06/10/2024 COMPR EHENS VON METAB OLIC PANEL sodium 139 mmol/ L 135-14 6 normal Not Available [address], [address], 06/10/2024 07:19:24 06/09/20 24 06/10/2024 COMPR EHENS VON METAB OLIC PANEL potassium 4.3 mmol/ L 3.5-5. 3 normal Not Available [address], [address], 06/10/2024 07:19:24 06/09/20 24 06/10/2024 COMPR EHENS VON METAB OLIC PANEL chloride 104 mmol/ L 98-110 normal Not Available [address], [address], 06/10/2024 07:19:24 06/09/20 24 06/10/2024 COMPR EHENS VON METAB OLIC PANEL carbon dioxide 28 mmol/ L 20-32 normal Not Available [address], [address], 06/10/2024 07:19:24 06/09/20 24 06/10/2024 COMPR EHENS VON METAB OLIC PANEL calcium 8.7 mg/dL 8.6-10 .3 normal Not Available [address], [address], 06/10/2024 07:19:24 06/09/20 24 06/10/2024 COMPR EHENS VON METAB OLIC PANEL protein, total 6.6 g/dL 6.1-8. 1 normal Not Available [address], [address], 06/10/2024 07:19:24 06/09/20 24 06/10/2024 COMPR EHENS VON METAB OLIC PANEL albumin 4.0 g/dL 3.6-5. 1 normal Not Available [address], [address], 06/10/2024 07:19:24 06/09/20 24 06/10/2024 COMPR EHENS VON METAB OLIC PANEL globulin 2.6 g/dL_ (calc ) 1.9-3. 7 normal Not Available [address], [address], 06/10/2024 07:19:24 06/09/20 24 06/10/2024 COMPR EHENS VON METAB OLIC PANEL albumin/glob ulin ratio 1.5 (calc ) 1.0-2. 5 normal Not Available [address], [address], 06/10/2024 07:19:24 06/09/20 24 06/10/2024 COMPR EHENS VON METAB OLIC PANEL bilirubin, total 0.4 mg/dL 0.2-1. 2 normal Not Available [address], [address], 06/10/2024 07:19:24 06/09/20 24 06/10/2024 COMPR EHENS VON METAB OLIC PANEL alkaline phosphatase 145 U/L 35-144 high Not Available [address], [address], 06/10/2024 07:19:24 06/09/20 24 06/10/2024 COMPR EHENS VON METAB OLIC PANEL AST 34 U/L 10-35 normal Not Available [address], [address], 06/10/2024 07:19:24 06/09/20 24 06/10/2024 COMPR EHENS VON METAB OLIC PANEL ALT 37 U/L 9-46 normal Not Available [address], [address], 06/10/2024 07:19:24 06/09/20 24 06/10/2024 CBC (INCL UDES DIFF/ PLT) white blood cell count 10.4 thous and/u L 3.8-10 .8 normal Not Available [address], [address], 06/10/2024 07:19:25 06/09/20 24 06/10/2024 CBC (INCL UDES DIFF/ PLT) red blood cell count 6.12 andrey on/uL 4.20-5 .80 high Not Available [address], [address], 06/10/2024 07:19:25 06/09/20 24 06/10/2024 CBC (INCL UDES DIFF/ PLT) hemoglobin 16.9 g/dL 13.2-1 7.1 normal Not Available [address], [address], 06/10/2024 07:19:25 06/09/2006/10/2024 CBC (INCL UDES DIFF/ PLT) hematocrit 52.7 % 38.5-5 0.0 high Not Available [address], [address], 06/10/2024 07:19:25 06/09/20 24 06/10/2024 CBC (INCL UDES DIFF/ PLT) MCV 86.1 fL 80.0-1 00.0 normal Not Available [address], [address], 06/10/2024 07:19:25 06/09/20 24 06/10/2024 CBC (INCL UDES DIFF/ PLT) MCH 27.6 pg 27.0-3 3.0 normal Not Available [address], [address], 06/10/2024 07:19:25 06/09/20 24 06/10/2024 CBC (INCL UDES DIFF/ PLT) MCHC 32.1 g/dL 32.0-3 6.0 normal For adult s, a sligh t decre ase in the calcu lated MCHC value (in the range of 30 to 32 g/dL) is most likel y not clini igor signi seth t; tristen er, it shoul d be inter prete d with cauti on in [facility] lat n with other red cell leah eters and the patie nt's clini haydee condi tion. Not Available [address] [place], [address], 06/10/2024 07:19:25 06/09/20 24 06/10/2024 CBC (INCL UDES DIFF/ PLT) RDW 13.3 % 11.0-1 5.0 normal Not Available [address], [address], 06/10/2024 07:19:25 06/09/20 24 06/10/2024 CBC (INCL UDES DIFF/ PLT) platelet count 376 thous and/u L 140-40 0 normal Not Available [address], [address], 06/10/2024 07:19:25 06/09/20 24 06/10/2024 CBC (INCL UDES DIFF/ PLT) MPV 9.2 fL 7.5-12 .5 normal Not Available [address], [address], 06/10/2024 07:19:25 06/09/20 24 06/10/2024 CBC (INCL UDES DIFF/ PLT) absolute neutrophils 5710 cells /uL 1500-7 800 normal Not Available [address], [address], 06/10/2024 07:19:25 06/09/20 24 06/10/2024 CBC (INCL UDES DIFF/ PLT) absolute lymphocytes 3089 cells /uL 850-39 00 normal Not Available [facility] [address], [address], 06/10/2024 07:19:25 06/09/20 24 06/10/2024 CBC (INCL UDES DIFF/ PLT) absolute monocytes 1227 cells /uL 200-95 0 high Not Available [employer] [address], [address], 06/10/2024 07:19:25 06/09/20 24 06/10/2024 CBC (INCL UDES DIFF/ PLT) absolute eosinophils 250 cells /uL 15-500 normal Not Available [address], [address], 06/10/2024 07:19:25 06/09/20 24 06/10/2024 CBC (INCL UDES DIFF/ PLT) absolute basophils 125 cells /uL 0-200 normal Not Available [address], [address], 06/10/2024 07:19:25 06/09/20 24 06/10/2024 CBC (INCL UDES DIFF/ PLT) neutrophils 54.9 % normal Not Available [address], [address], 06/10/2024 07:19:25 06/09/20 24 06/10/2024 CBC (INCL UDES DIFF/ PLT) lymphocytes 29.7 % normal Not Available [facility] [address], [address], 06/10/2024 07:19:25 06/09/20 24 06/10/2024 CBC (INCL UDES DIFF/ PLT) monocytes 11.8 % normal Not Available [facility] [address], [address], 06/10/2024 07:19:25 06/09/20 24 06/10/2024 CBC (INCL UDES DIFF/ PLT) eosinophils 2.4 % normal Not Available [facility] [address], [address], 06/10/2024 07:19:25 06/09/20 24 06/10/2024 CBC (INCL UDES DIFF/ PLT) basophils 1.2 % normal Not Available [facility] [address], [address], 06/10/2024 07:19:25 06/09/20 24 06/10/2024 TSH W/REF MIGUEL ANGEL TO FT4 TSH w/reflex to FT4 2.60 mIU/L 0.40-4 .50 normal Not Available [employer] [facility] [address] [place], [address], 06/10/2024 07:19:26 10/14/19 25 10/17/2024 ANAER OBIC AND AEROB IC CULTU RE aerobic culture FINAL REPORT Not Available [facility] ([facility]) [address] [facility], [place], [address], 10/20/2024 18:35:54 10/14/19 25 10/17/2024 ANAER OBIC AND AEROB IC CULTU RE result 1 COMMEN T No growt h in 36 - 48 hours . Not Available [facility] ([facility]) [address] [facility], [place], [address], 10/20/2024 18:35:54 10/14/19 25 10/20/2024 ANAER OBIC AND AEROB IC CULTU RE anaerobic culture FINAL REPORT Not Available [facility] ([facility]) [address] [facility], [place], [address], 10/20/2024 18:35:54 10/14/19 25 10/20/2024 ANAER OBIC AND AEROB IC CULTU RE result 1 COMMEN T No anaer obic growt h in 72 hours . Not Available [facility] ([facility]) [address] [facility], [place], [address], 10/20/2024 18:35:54 12/12/19 25 12/11/2024 COMPR EHENS VON METAB OLIC PANEL sodium 144 mmol/ L 134-14 4 normal Not Available [facility] (Lab) [address] [place], [address], 12/11/2024 21:44:04 12/12/19 25 12/11/2024 COMPR EHENS VON METAB OLIC PANEL potassium 4.6 mmol/ L 3.5-5. 2 normal Not Available [facility] (Lab) [address], [place], [address], 12/11/2024 21:44:04 12/12/19 25 12/11/2024 COMPR EHENS OVN METAB OLIC PANEL chloride 107 mmol/ L 96-106 high Not Available [facility] (Lab) [address] [place], [address], 12/11/2024 21:44:04 12/12/19 25 12/11/2024 COMPR EHENS VON METAB OLIC PANEL carbon dioxide 25 mmol/ L 20-29 normal Not Available [facility] (Lab) [address], [place], [address], 12/11/2024 21:44:04 12/12/19 25 12/11/2024 COMPR EHENS VON METAB OLIC PANEL anion gap 17.0 mmol/ L Not Available [facility] (Lab) [address], [place], [address], 12/11/2024 21:44:04 12/12/19 25 12/11/2024 COMPR EHENS VON METAB OLIC PANEL blood urea nitrogen 17 mg/dL 8-27 normal Not Available [facility] (Lab) [address], [place], [address], 12/11/2024 21:44:04 12/12/19 25 12/11/2024 COMPR EHENS VON METAB OLIC PANEL creatinine 0.55 mg/dL 0.76-1 .27 low Not Available [facility] (Lab) [address] [place], [address], 12/11/2024 21:44:04 12/12/19 25 12/11/2024 COMPR EHENS VON METAB OLIC PANEL glomerular filtration rate 102 mL/mi n/1 Not Available [facility] (Lab) [address] [place], [address], 12/11/2024 21:44:04 12/12/19 25 12/11/2024 COMPR EHENS VON METAB OLIC PANEL BUN creatinine ratio 31 10-24 high Not Available [facility] ([facility] [address] [place], [address], 12/11/2024 21:44:04 12/12/19 25 12/11/2024 COMPR EHENS VON METAB OLIC PANEL glucose 89 mg/dL 70-99 normal Not Available [facility] (Lab) [address] [place], [address], 12/11/2024 21:44:04 12/12/19 25 12/11/2024 COMPR EHENS VON METAB OLIC PANEL osmolality calculated 288 280-30 1 normal Not Available [facility] (Lab) [address] [facility], [place], [address], 12/11/2024 21:44:04 12/12/19 25 12/11/2024 COMPR EHENS VON METAB OLIC PANEL calcium 9.6 mg/dL 8.6-10 .2 normal Not Available [facility] (Lab) [address] [place], [address], 12/11/2024 21:44:04 12/12/19 25 12/11/2024 COMPR EHENS VON METAB OLIC PANEL bilirubin total 0.3 mg/dL 0.0-1. 2 normal Not Available [facility] (Lab) [address] [place], [address], 12/11/2024 21:44:04 12/12/19 25 12/11/2024 COMPR EHENS VON METAB OLIC PANEL AST aspartate aminotransfe rase 37 U/L 0-40 normal Not Available [facility] ([facility]) [address] [place], [address], 12/11/2024 21:44:04 12/12/19 25 12/11/2024 COMPR EHENS VON METAB OLIC PANEL ALT (alanine aminotransfe rase) 42 IU/L 0-44 normal Not Available [facility] ([facility]) [address] [place], [address], 12/11/2024 21:44:04 12/12/19 25 12/11/2024 COMPR EHENS VON METAB OLIC PANEL total protein 6.3 g/dL 6.0-8. 5 normal Not Available [facility] (Lab) [address] [place], [address], 12/11/2024 21:44:04 12/12/19 25 12/11/2024 COMPR EHENS VON METAB OLIC PANEL albumin level 4.0 g/dL 3.8-4. 8 normal Not Available [facility] (Lab) [address] [place], [address], 12/11/2024 21:44:04 12/12/19 25 12/11/2024 COMPR EHENS VON METAB OLIC PANEL globulin 2.3 g/dL 1.5-4. 5 normal Not Available [facility] (Lab) [address] [place], [address], 12/11/2024 21:44:04 12/12/19 25 12/11/2024 COMPR EHENS VON METAB OLIC PANEL albumin globulin ratio 2.0 1.2-2. 2 normal Not Available [facility] (Lab) [address], [place], [address], 12/11/2024 21:44:04 12/12/19 25 12/11/2024 COMPR EHENS VON METAB OLIC PANEL alkaline phosphatase 135 IU/L 44-121 high Not Available [facility] (Lab) [address] [place], [address], 12/11/2024 21:44:04 12/12/19 25 12/11/2024 COMPR EHENS VON METAB OLIC PANEL hemolysis 16 0-19 Not Available [facility] (Lab) [address] [place], [address], 12/11/2024 21:44:04 12/12/19 25 12/11/2024 COMPR EHENS VON METAB OLIC PANEL icterus 1 0.5-4. 9 Not Available [facility] ([facility]) [address] [place], [address], 12/11/2024 21:44:04 12/12/19 25 12/11/2024 COMPR EHENS VON METAB OLIC PANEL lipemia 15 0-99 Not Available [facility] (Lab) [address] [place], [address], 12/11/2024 21:44:04 12/12/19 25 12/11/2024 LIPID PANEL triglyceride s 171 mg/dL 0-149 high Not Available [facility] (Lab) [address] [place], [address], 12/11/2024 21:44:05 12/12/19 25 12/11/2024 LIPID PANEL cholesterol 192 mg/dL 100-19 9 normal Not Available [facility] (Lab) [address] [place], [address], 12/11/2024 21:44:05 12/12/19 25 12/11/2024 LIPID PANEL LDL cholesterol 125 mg/dL 0-99 high Not Available [facility] [address] [place], [address], 12/11/2024 21:44:05 12/12/19 25 12/11/2024 LIPID PANEL VLDL cholesterol (calc) 34 mg/dL 5-40 normal Not Available [facility] (Lab) [address] [place], [address], 12/11/2024 21:44:05 12/12/19 25 12/11/2024 LIPID PANEL HDL cholesterol 44 mg/dL 40-999 normal Not Available [facility] [address] [place], [address], 12/11/2024 21:44:05 12/12/19 25 12/11/2024 LIPID PANEL LDL HDL ratio 2.8 0-3.6 normal Not Available [facility] ([facility]) [address] [place], [address], 12/11/2024 21:44:05 12/12/19 25 12/11/2024 LIPID PANEL chol HDL ratio 4.0 mg/dL 0-5.0 normal Not Available [facility] ([facility]) [address] [facility], [place], [address], 12/11/2024 21:44:05 12/12/19 25 12/13/2024 VITAM IN D, 25-HY DROXY vitamin D, 25-hydroxy 48.7 NG/mL 30.0-1 00.0 Vitam in D defic iency has been defin ed by the Insti tute of Medic ine and an Endoc rine Socie ty pract ice guide line as a level of serum 25-OH vitam in D less than 20 ng/mL (1,2) . The Endoc rine Socie ty went on to furth er defin e vitam in D insuf ficie ncy as a level betwe en 21 and 29 ng/mL (2). 1. IOM (Inst itute of Medic ine). 2010. Dieta ry refer ence intak es for calci um and D. rKzysztof jama [place]: The Natformerly [facility] Press . 2. Antoinette foster MF, Dameon uhrd [place], Yousif off-F errar i BRUCE, et al. Evalu ation , treat ment, and preve ntion of vitam in D defic iency : an Endoc rine Socie ty clini haydee pract ice guide line. JCEM. 2010; 96(7) :1911 -30. Perfo rmed at: 01 - [facility] [address] [facility], [place] [address] Lab Direc tor: Gerry schneider PhD, Phone : [phone] Not Available [facility] (Lab) [address] [facility], [place], [address], 12/13/2024 07:14:22 10/06/19 25 10/04/2024 XR, finge r(s), 2 or more view No observ ation record ed. [email or web address] [facility] [address], [place], [address], 10/06/2024 07:58:56 02/13/2002/11/2025 US, duple x, scrot um, compl ete No observ ation record ed. [facility] [address], [place], [address], 02/16/2025 10:23:47 Result Notes None recorded. 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 JOY Causey Attn: Accountin g,[address] [place], [address], [place] [facility] 4 07:31:46 Adult health examination Active 2023 JOY Causey Attn: Accountin g,[address] [place], [address], [place] [facility] 4 07:31:47 Gastroesophage al reflux disease without esophagitis 011107064 Active 2023 JOY Causey Attn: Accountin g,[address] [place], [address], [place] [facility] 4 07:31:53 Hypothyroidism 50179092 Active 2023 JOY Causey Attn: Accountin g,[address] [place], [address], [place] [facility] 4 13:11:34 Loose stool 668619895 Active 2023 JOY Causey Attn: Sarath avila,[address] [facility], [place], [address], [facility] 4 13:32:45 Problem Notes None recorded. Medical Equipment None Reported. Allergies No known drug allergies Medications Name Sig Start Date Stop Date Status Note LastModified by Organization Details LastModified Time amoxicillin 500 mg capsule TK FOUR CS PO 1 HOUR B DAPP 10/13 completed Not Available Not Available Not Available doxycycline hyclate 100 mg capsule TAKE 1 CAPSULE BY MOUTH TWICE DAILY active Not Available Not Available No t Available famotidine 40 mg tablet TAKE 1 TABLET BY MOUTH EVERY DAY active Not Available Not Available No t Available tamsulosin 0.4 mg capsule TAKE 2 CAPSULES BY MOUTH DAILY active Not Available Not Available No t Available levothyroxi ne 50 mcg tablet TAKE 1 TABLET BY MOUTH EVERY DAY active Not Available Not Available No t Available cephalexin 500 mg capsule TAKE 1 CAPSULE BY MOUTH EVERY 8 HOURS FOR 5 DAYS 10/13 completed Not Available Not Available Not Available esomeprazol e magnesium 40 mg capsule,del ayed release TAKE 1 CAPSULE BY MOUTH EVERY DAY BEFORE BREAKFAST 2024 active Not Available Not Available Not Avai lable buspirone 7.5 mg tablet Take 1 tablet twice a day by oral route. active Not Available Not Available No t Available tamsulosin ER 0.4 mg capsule,ext ended release Take 1 capsule every day by oral route. 10/13 completed Not Available Not Available Not Available methylpredn isolone 4 mg tablets in a dose pack FOLLOW PACKAGE DIRECTION S active Not Available Not Available No t Available sertraline 50 mg tablet TAKE 1 TABLET BY MOUTH EVERY DAY active Not Available Not Available No t Available finasteride 5 mg tablet TAKE 1 TABLET BY MOUTH EVERY DAY active Not Available Not Available No t Available magnesium active Not Available Not Lorna ilable Not Available multivitami n active Not Available Not Available Not Available cholecalcif aman (vitamin D3) 1,250 mcg (50,000 unit) capsule TAKE ONE CAPSULE BY MOUTH EVERY WEEK active Not Available Not Available No t Available donepezil 23 mg tablet TAKE 1 TABLET BY MOUTH DAILY 10/17/ 2025 active Not Available Not Available Not Avai lable Vitals Date Recorded Body height Oxygen saturation Oxygen saturation in Arterial blood by Pulse oximetry Heart rate Respiratory rate Body mass index (BMI) Body weight Systolic And Diastolic Provider Name and Address Organization Details Last Updated DateTime 5 171.45 cm 98 % 98 % 80 /min 18 /min 24.5 kg/m2 94955.5 4 g 116/68 mm[Hg] [facility] 5 10:35:21 Date Recorded Body height Body mass index (BMI) Body weight Oxygen saturation Oxygen saturation in Arterial blood by Pulse oximetry Heart rate Systolic And Diastolic Provider Name and Address Organization Details Last Updated DateTime 5 171.45 cm 24.4 kg/m2 58769.5 9 g 96 % 96 % 71 /min 112/70 mm[Hg] Jonh Ramirez MA [facility] 5 11:05:16 Date Recorded Body height Body mass index (BMI) Body weight Oxygen saturation Oxygen saturation in Arterial blood by Pulse oximetry Heart rate Systolic And Diastolic Provider Name and Address Organization Details Last Updated DateTime 5 171.45 cm 24.3 kg/m2 04718.8 g 96 % 96 % 96 /min 118/78 mm[Hg] Jennie Moncada LPN [facility] 5 16:16:15 Date Recorded Body height Body mass index (BMI) Body weight Oxygen saturation Oxygen saturation in Arterial blood by Pulse oximetry Heart rate Systolic And Diastolic Provider Name and Address Organization Details Last Updated DateTime 4 171.45 cm 24 kg/m2 03858.5 7 g 98 % 98 % 68 /min 110/76 mm[Hg] [facility] 4 12:42:33 Social History Question Answer Notes LastModified by Organizat ion Details LastModified Time Tobacco Smoking Status Current Some Day Smoker occassional cigar w/ former pipe smoker [place], [facility] 06/04/2024 12:31:12 What Is Your Level Of Caffeine Consumption? Moderate Information not available 06/04/2024 What Was The Date Of Your Most Recent Tobacco Screening? 01/20/2025 [email or web address] Information not available 01/20/2025 Has Tobacco Cessation Counseling Been Provided? Yes Information not available 06/04/2024 On What Date Was Tobacco Cessation Counseling Provided? 12/11/2024 [email or web address] Information not available 12/11/2024 Sex: Male Functional Status Question Answer Note LastModified by Organizat ion Details LastModified Time Do you use any illicit or recreational drugs? No Information not available 06/04/2024 Do you or have you ever used any other forms of tobacco or nicotine? No Information not available 06/04/2024 What is your level of alcohol consumption? Occasional Information not available 06/04/2024 Mental Status None recorded. Family History Nothing Reported. Medical History Condition Response Coronary Artery Disease N Other N Atrial Fibrillation N High Blood Pressure N Thyroid Problems N Kidney or Bladder Problems N GI Problems N Depression N COPD N Blood Clots N Have you had a mammogram in the last yea r? N Skin Problems N Eating Disorder N Anemia N Heart Attack (MD) N Anxiety Disorder N Diabetes N Muscle, Joint, or Bone Problems N Arthritis N Seizures/Epilepsy N Have you had a colonoscopy in the last 1 0 years? N Acid Reflux (GERD) Y Cancer N Stroke N Asthma N Allergies N Have you had a PSA blood test in the las t year? N ADHD N Substance Abuse N High Cholesterol N Hepatitis N Liver Disease N Schizophrenia N Headaches N Heart Failure N Osteoporosis N Immunizations Vaccine Type Date Status Note Provider Nam e and Address Organization Details Recorded Time zoster recombinant 3 completed [place], [place] - [facility] 10/13/2024 10:30:59 zoster recombinant 3 completed [place], [place] [facility] 10/13/2024 10:30:59 Influenza, high-dose, quadrivalent, PF 2 completed [place], [place] [facility] 10/13/2024 10:30:59 COVID-19, mRNA, LNP-S, PF, 100 mcg/0.5mL dose or 50 mcg/0.25mL dose 1 completed [place], [place] - [facility] 10/13/2024 10:30:59 COVID-19, mRNA, LNP-S, PF, 100 mcg/0.5mL dose or 50 mcg/0.25mL dose 1 completed CHARY Esp[place], [place] - [facility] 10/13/2024 10:30:59 COVID-19, mRNA, LNP-S, PF, 100 mcg/0.5mL dose or 50 mcg/0.25mL dose 2 completed CHARY [place] [facility] 10/13/2024 10:30:59 COVID-19, mRNA, LNP-S, PF, 100 mcg/0.5mL dose or 50 mcg/0.25mL dose 1 completed [place] [facility] 10/13/2024 10:30:59 COVID-19, mRNA, LNP-S, PF, 50 mcg/0.5 mL 3 completed [place] [facility] 10/13/2024 10:30:59 pneumococcal polysaccharide PPV23 2 completed [place] [facility] 10/13/2024 10:30:59 Tdap 2 completed Haile Nicolas [place] - [facility] 10/13/2024 10:30:59 Pneumococcal conjugate PCV 13 0 completed [place] [facility] 10/13/2024 10:30:59 Td (adult), 5 Lf tetanus toxoid, preservative free, adsorbed 3 completed [place] [facility] 10/13/2024 10:30:59 Past Encounters Encounter ID Performer Location Encounter Start Date Encounter Closed Date Diagnosis/Indication Diagnosis SNOMED-CT Code Diagnosis ICD10 Code Diagnosis IMO Codes Diagnosis Note [id number] JOY Causey [facility] [place] [address] [address] [place] [address] 06/04/2024 11:59:35 06/04/2024 15:30:27 Adult health examination 943708973 Z00.00 Healthy diet and exercise, HCM as discussed 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 medication Alzheimer's disease 2692 9004 G30.9 this is a stable chronic condition, mild, will follow Gastroesop hageal reflux disease without esophagitis 867330684 K21.9 1 .Avoid lying flat 3 to 4 hours after eating or drinking. 2. Don't eat for 3 hours prior to going to sleep 3. Elevate the head of bed 4-8 inches. 4. Avoid tight clothing around the waist. 5. Decrease dietary fat intake. 6. Avoid acidic foods (citrus and tomato-bas ed products), alcohol, caffeinate d beverages, chocolate, onions, garlic, salt, and peppermint oil. 7. Eat several smaller meals during the day instead of large meals. 8. Avoid drinking coffee, or carbonated beverages. 9. Weight loss can help with symptoms, try to diet and exercise. 10. Stop smoking. Benign pro static hyperplasia 557658528 N40.1 this is a stable chronic condition, well controlled Preventive dental procedure 61409646 Z01.20 amoxicilli n 2 gm prior to dental Hypothyroidism 61180542 E03.9 not controlled , re-start meds, repeat labs 6 weeks Screening for malignant neoplasm of colon 692575997 Z12.11 Loose stool 196797489 R1 9.5 Im checkin labs thyroid and cmp, start fiber, lactaid OTC as he does eat a lot of diary, next step GI consult and test for c-diff but given the diarrhea is not constant it is less likely C diff [id number] Corwin Jasso, DO [facility] [address] [address] 10/13/2024 10:10:59 10/14/2024 09:25:13 Alzheimer's disease 10496780 G30.9 this is a stable chronic condition, mild, will follow Benign pro static hyperplasia 623124031 N40.1 this is a stable chronic condition, well controlled Gastroesop hageal reflux disease without esophagitis 289525677 K21.9 1 .Avoid lying flat 3 to 4 hours after eating or drinking. 2. Don't eat for 3 hours prior to going to sleep 3. Elevate the head of bed 4-8 inches. 4. Avoid tight clothing around the waist. 5. Decrease dietary fat intake. 6. Avoid acidic foods (citrus and tomato-bas ed products), alcohol, caffeinate d beverages, chocolate, onions, garlic, salt, and peppermint oil. 7. Eat several smaller meals during the day instead of large meals. 8. Avoid drinking coffee, or carbonated beverages. 9. Weight loss can help with symptoms, try to diet and exercise. 10. Stop smoking. Hypothyroidism 19654239 E03.9 not controlled , re-start meds, repeat labs 6 weeks Smoker 20985176 F17.200 Blister of hand without infection 82276241 S60.521A There is no signs of infection I did do a culture and placed an antibiotic and Band-Aid over it [id number] Corwin Jasso DO [facility] [facility] [place] [address] [facility] [address] [place] [address] 12/11/2024 10:58:02 12/12/2024 08:16:19 Alzheimer's disease 77166269 G30.9 this is a stable chronic condition, mild, will follow Benign pro static hyperplasia 653430595 N40.1 this is a stable chronic condition, well controlled Gastroesop hageal reflux disease without esophagitis 916746905 K21.9 This is a stable chronic condition continue current treatment plan follow up six-month1 .Avoid lying flat 3 to 4 hours after eating or drinking.2 . Don't eat for 3 hours prior to going to sleep3. Elevate the head of bed 4-8 inches.4. Avoid tight clothing around the waist.5. Decrease dietary fat intake.6. Avoid acidic foods (citrus and tomato-bas ed products), alcohol, caffeinate d beverages, chocolate, onions, garlic, salt, and peppermint oil.7. Eat several smaller meals during the day instead of large meals.8. Avoid drinking coffee, or carbonated beverages. 9. Weight loss can help with symptoms, try to diet and exercise.1 0. Stop smoking. Hypothyroidism 64309036 E03.9 controlled , continue current meds, repeat labs 6 months Vitamin D deficiency 347 06953 E55.9 27309 Hyperlipidemia 03802697 E78.49 [id number] Corwin Jasso DO [facility] - [place] [address] [facility] [address] [place] [address] 01/20/2025 15:58:14 01/21/2025 08:27:34 Hypothyroidism 75232539 E03.9 controlled , continue current meds, repeat labs 6 months Gastroesop hageal reflux disease without esophagitis 954719634 K21.9 This is a stable chronic condition continue current treatment plan follow up six-month1 .Avoid lying flat 3 to 4 hours after eating or drinking.2 . Don't eat for 3 hours prior to going to sleep3. Elevate the head of bed 4-8 inches.4. Avoid tight clothing around the waist.5. Decrease dietary fat intake.6. Avoid acidic foods (citrus and tomato-bas ed products), alcohol, caffeinate d beverages, chocolate, onions, garlic, salt, and peppermint oil.7. Eat several smaller meals during the day instead of large meals.8. Avoid drinking coffee, or carbonated beverages. 9. Weight loss can help with symptoms, try to diet and exercise.1 0. Stop smoking. 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 medication Alzheimer's disease 2692 9004 G30.9 this is a stable chronic condition, mild, will follow Bacterial sinusitis 7034 12143 J32.9 B96.89 1264632 saline and mucinex, doxy and medrol Testicular mass 04567999 N50.89 92706 Health Concerns Section Related Observation LastModified by Organization Detai ls LastModified Time None Recorded Concern Status LastModified by Organization Details LastModified Time None Recorded Advance Directives Directive None Recorded Payers Insurance Date Sequence Insurance Name Policy Number Policy Stevenson Covered Member ID Stevenson Member ID Guarantor Name 01/20/2025 1 [employer] (MEDICARE REPLACEMENT/ ADVANTAGE - PPO) [id number] Don Timmons [id number] Don Timmons Notes Date Note Type Note Provider Name and Address Organization Details Recorded Time 06/04/2024 text/html New patient in to establish with PCM and f/u for the following medical conditions Patient is in for annual Medicare physical along with routine follow-up for the following medical conditions labs and medications.Diagnoses and all orders for this visit:Encounter for general adult medical examination with abnormal findings (Primary)Last colonoscopy: ordering cologaurLeona quintero: gettingFlu: todayPneumococcal: check Trying to exerciseMemory deficitThis is been stable, patient is feeling much better, we agreed to continue to follow, further evaluation and treatment based on signs and symptoms.Encounter for risk and functional assessmentPatient is able to perform all ADLEncounter for screening for other disorderPatient denies any depressionChronic GERDPatient has been taking his medication watching his diet he has not had any breakthrough signs and symptomsBenign prostatic hyperplasia with urinary frequencyPatient has been taking his medications, feels like he is in well control,At low risk for fallPatient denies any fallnew1. lose bowels, watery, started 1 year ago, can happen in his sleep, no travel, not smelly,Medicare Health Risk AssessmentBasic InformationIn general, would you say your health is: GoodDo you have an advance directive, such as a living will or durable power of mergers and acquisitions attorney?: YesDo you have to strain or struggle to hear/understand conversations?: NoOver the last 2 weeks, how often have you been bothered by any of the following problems?Little Interest or Pleasure in Doing Things: Not at allFeeling Down, Depressed, or Hopeless: Not at allPHQ-2 Total Score (If total score is 3 or more points, staff should administer the PHQ-9): 0In the past year, patient experienced:One or more falls in the last year: (!) YesHow many times?: 2 or moreWas the patient injured in the fall?: NoDo you feel unsteady when standing or walking?: NoDo you worry about falling?: NoSafetyDo you have a working smoke detector in your home?: YesDoes your home have throw rugs, poor lighting, or a slippery bath tub/shower?: NoDo you always fasten your seatbelt when you are in a vehicle?: YesWhat is your typical mode of transportation: CarPhysical ActivityHow many days a week do you usually exercise?: > 5 days per weekHow intense is your typical exercise?: Light (like stretching or slow walking)NutritionHow would you rate your appetite?: GoodHow would you describe the condition of your mouth and teeth/dentures?: ExcellentOn a typical day, how many servings of fruits and vegetables do you eat?: 5On a typical day, how many servings of high fiber/whole-grain foods do you eat?: 1On a typical day, how many servings of high fat/fried foods do you eat?: 0Have you experienced any of the following problems currently or recently?Eating: NoGrooming: NoBathing: NoWalking: NoUsing the toilet: NoMemory problems: NoDifficulty speaking: NoDressing: NoBalance: NoPain: NoSexual Health: NoFatigue: NoHave you experienced any of the following problems currently or recently?Laundry and/or housekeeping: NoHandling money: NoShopping: NoUsing the Phone: NoFood preparation: NoTransportation: NoTaking and/or getting your own medications: NoDo you use prescription drugs that are not prescribed for you?: NoDo you struggle with any of the following: depression, stress, anger, loneliness or social isolation?: NoBased on my observation of the patient, review of Health Risk Assessment (HRA) and other records, this is my assessment and recommendation regarding fall risk, hearing impairment, home safety, ADLs, or any other issues identified in the HRA: discussed JOY Causey Attn: Accounting,[address] [place], [address], [place] [facility] 06/04/2024 13:33:17 10/13/2024 text/html ROS as noted in the HPI Patient worked in the scheduled today for the following medical conditionsLast colonoscopy: ordering [id number]-[id number] ingles: gettingFlu: todayPneumococcal: check Trying to exerciseMemory deficit-This is been stable, patient is feeling much better, we agreed to continue to follow, further evaluation and treatment based on signs and symptoms.Chronic GERD-Patient has been taking his medication watching his diet he has not had any breakthrough signs and symptomsBenign prostatic hyperplasia with urinary frequency-Patient has been taking his medications, feels like he is in well control,At low risk for fallPatient denies any fallHypothyroid-patien t is taking medications now and due for labsnew1. Patient was working in the [place] a [place] of weeks ago got numerous stones in his hand, he went to the emergency room and had them removed, was placed on antibiotic and it all got better now he has a small blister-like area on the left palm JOY Causey Attn: Accounting,[address] [facility], [place], [address], [facility] 10/13/2024 13:10:02 12/11/2024 text/html ROS as noted in the HPI Patient is in the office for a routine six month f/u for the following medical conditionsLast colonoscopy: ordering [id number]-[id number] ingles: gettingFlu: todayPneumococcal: check Trying to exerciseMemory deficit-This is been stable, patient is feeling much better, we agreed to continue to follow, further evaluation and treatment based on signs and symptoms.Chronic GERD-Patient has been taking his medication watching his diet he has not had any breakthrough signs and symptomsBenign prostatic hyperplasia with urinary frequency-Patient has been taking his medications, feels like he is in well control,At low risk for fallPatient denies any fallHypothyroid-patien t is taking medications now and due for labs JaCHARY Velaz[place], [place] - [facility] 12/11/2024 11:37:33 01/20/2025 text/html ROS as noted in the HPI Patient is in the office for a routine six month f/u for the following medical conditionsLast colonoscopy: ordering [id number] ingles: gettingFlu: todayPneumococcal: check Trying to exerciseMemory deficit-This is been stable, patient is feeling much better, we agreed to continue to follow, further evaluation and treatment based on signs and symptoms.Chronic GERD-Patient has been taking his medication watching his diet he has not had any breakthrough signs and symptomsBenign prostatic hyperplasia with urinary frequency-Patient has been taking his medications, feels like he is in well control,At low risk for fallPatient denies any fallHypothyroid-patien t is taking medications now and due for labsNew1. sore throat, got from , cold, was in [place], no exposure, cough with sputum, hurts to swallow [place], [place] - [facility] 01/20/2025 16:43:35
== END 2025-05-27 13:30 | disposition home or self-care (01) ==
PROVIDERS: Emergency Provider Registered Nurse; PCP Physician Assistant
DX: S92.252A Displaced fracture of navicular [scaphoid] of left foot, initial encounter for closed fracture (principal); W18.09XA Striking against other object with subsequent fall, initial encounter; R03.0 Elevated blood-pressure reading, without diagnosis of hypertension; M25.572 Pain in left ankle and joints of left foot; I10 Essential (primary) hypertension; M47.816 Spondylosis without myelopathy or radiculopathy, lumbar region
CPT/HCPCS: 29515; 73610; 73630; 99214; G0463

== ENCOUNTER 2025-07-08 14:03 | Outpatient (CLI) | payer MEDICARE, SELFPAY ==
[2025-07-08 14:31] LABS: Hematocrit 48.5 % (42.0-52.0); Hemoglobin 16.1 g/dL (14.0-18.0); Mean Corpuscular HGB Conc 33.2 g/dl (32-36); Mean Corpuscular Hemoglobin 28.5 pg (26-34); Mean Corpuscular Volume 86.0 fl (80-100); Platelet Count Result 359 k/mm3 (150-375); Red Blood Count 5.64 M/mm3 (4.6-6.20); White Blood Count 12.8 K/mm3 (4.5-10.0)
[2025-07-08 14:45] LABS: Alanine Aminotransferase 52 U/L (6-50); Albumin Level 3.9 g/dL (3.5-5.1); Alkaline Phosphatase 127 U/L (38-126); Anion Gap 6 mmol/L (4-12); Aspartate Amino Transferase 50 U/L (17-59); Bilirubin,Total 0.5 mg/dL (0.2-1.3); Blood Urea Nitrogen 18 mg/dL (9-20); Calcium 8.8 mg/dL (8.4-10.2); Carbon Dioxide 27 mmol/L (22-30); Chloride 108 mmol/L (98-107); Cholesterol 203 mg/dL (0-200); Estimated Glomerular Filt Rate > 60; Glucose 97 mg/dL (65-110); HDL Direct 33 mg/dL; Potassium 3.7 mmol/L (3.4-5.0); Sodium 141 mmol/L (137-145); Total Protein 6.7 g/dL (6.3-8.2)
[2025-07-08 15:00] LABS: Free T4 Free Thyroxine 1.17 ng/dL (0.78-2.19)
[2025-07-08 15:17] LABS: Triglycerides 579 mg/dL (<150)
[2025-07-08 15:20] LABS: Thyroid Stimulating Hormone 2.610 uIU/mL (0.465-4.680)
--- OUTSIDE RECORDS SUMMARY | 2025-07-08 15:24 | XMS_ITS | Clinical Summary ---
Author Organization [facility] [address] at the Medical Office Building Address [address] [place] [address] Care Team Providers Care Document Management Technician Name Role Phone Alexander Powers MD Unavailable Unavailable Anabel Higgins MD Primary Care Provider [phone] Allergies No known active allergies Medications multivitamin (MULTIPLE VITAMINS DAILY ORAL) Rx: Multi Vitamin Daily Active tamsulosin (FLOMAX) 0.4 mg extended release capsule TAKE 2 CAPSULES BY MOUTH EVERY DAY 180 capsule 3 3 Active busPIRone (BUSPAR) 7.5 mg tabletIndication s:Generalized Anxiety Disorder Take 1 tablet (7.5 mg total) by mouth 3 (three) times a day [address] (NexIUM) 40 mg capsuleIndicatio ns:Chronic GERD Take 1 capsule (40 mg total) by mouth daily before breakfast 4 Active finasteride (PROSCAR) 5 mg tabletIndication s:Benign prostatic hyperplasia with urinary frequency Take 1 [...] mouth daily Active donepeziL (ARICEPT) 23 mg tabletIndication s:Memory deficit Take 1 tablet (23 mg total) by mouth nightly 90 tablet 3 5 05/26/20 26 Active memantine (NAMENDA) 10 mg tabletIndication s:Moderate to Severe Alzheimer's Type Dementia Take 1 tablet (10 mg total) by mouth daily 90 tablet 3 5 Active Active Problems Problem Noted Date Diagnosed Date [...] 08/24/2021 Assessment & Plan (08/31/2021 3:09 PM SLUDGE CONTROL ATTENDANT): This is moderately improved were going to continue ice and [id number]-bd-[id number] exercises we did discuss option for physical therapy Assessment & Plan (08/24/2021 4:10 PM SLUDGE CONTROL ATTENDANT): No signs of fx on exam will [...] 10/13/2020 Assessment & Plan (10/13/2020 11:13 AM SLUDGE CONTROL ATTENDANT): Repeat cbc Olecranon bursitis of left elbow 04/06/2020 Assessment & Plan (08/31/2021 3:09 PM SLUDGE CONTROL ATTENDANT): This is moderately improved will continue to [...] Neurology Assessment & Plan (07/11/2023 11:34 AM SLUDGE CONTROL ATTENDANT): This is mild and patient's is with [...] follow Assessment & Plan (08/31/2021 3:09 PM SLUDGE CONTROL ATTENDANT): This appears very stable will continue to follow Assessment & Plan (04/25/2021 2:14 PM CDT): Taking medications and appears very stable Assessment & Plan (10/13/2020 11:06 AM SLUDGE CONTROL ATTENDANT): On 10 mg, feels better, will try 23 mg and f/u 3 months Assessment & Plan (04/06/2020 9:49 AM CDT): This appears very stable, CPM, will follow Mass of right testicle 05/26/2019 Assessment & Plan (05/02/2021 7:11 AM CDT): Non-tender, will get US Encounter for general adult medical examination with abnormal findings 11/28/2018 Assessment & Plan (07/11/2023 11:34 AM SLUDGE CONTROL ATTENDANT): Healthcare maintenance updated immunizations reviewed Assessment & [...] follow Assessment & Plan (07/11/2023 11:34 AM SLUDGE CONTROL ATTENDANT): This is well controlled with no SI HI will continue to follow Assessment & Plan (01/18/2023 3:23 PM CDT): excellend control, CPM Assessment & Plan (10/25/2022 10:14 AM CDT): Controlled, CPM Assessment & Plan (06/19/2022 2:02 PM SLUDGE CONTROL ATTENDANT): Increased, will increase zoloft, f/u routine Assessment & Plan (04/26/2022 11:12 AM CDT): Well controlled with medications, no SI/HI Assessment & Plan (01/24/2022 8:53 AM CDT): Well controlled Assessment & Plan (10/24/2021 1:08 PM CDT): Stable, CPM Assessment & Plan (01/13/2021 11:17 AM CDT): This is in good control, continue current meds, follow-up 6 months Assessment & Plan (10/13/2020 11:06 AM SLUDGE CONTROL ATTENDANT): Well controlled with meds Assessment & Plan [...] fall Assessment & Plan (10/13/2020 11:06 AM SLUDGE CONTROL ATTENDANT): No falls Encounter for screening for other [...] routine Assessment & Plan (07/11/2023 11:34 AM SLUDGE CONTROL ATTENDANT): This is currently well controlled with medications continue current meds follow- up routine Assessment & Plan (10/25/2022 10:13 AM CDT): Controlled, CPM Assessment & Plan (06/19/2022 2:02 PM SLUDGE CONTROL ATTENDANT): CPM Assessment & Plan (04/26/2022 11:11 AM CDT): Controlled with meds Assessment & Plan (02/21/2022 10:18 AM CDT): Controlled with medications, CPM Assessment & Plan (01/24/2022 8:53 AM CDT): Controlled and CPM Assessment & Plan (08/31/2021 3:08 PM SLUDGE CONTROL ATTENDANT): This is controlled will continue current medications [...] understanding Assessment & Plan (07/11/2023 11:34 AM SLUDGE CONTROL ATTENDANT): Avoid spicy, fried, greasy foods Keep hydrated [...] understanding Assessment & Plan (08/31/2021 3:08 PM SLUDGE CONTROL ATTENDANT): Images from the original note were not [...] AM CDT [facility] [address] [facility] [address] [place] [phone] Keysha Dixon MD Late onset Alzheimer's [...] on file Legal Sex Male 7:21 PM SLUDGE CONTROL ATTENDANT Gender Identity Not on file Sexual Orientation [...] Completed 10/13/2019 Pneumococcal vaccine 65+ Completed 04/26/2022, 0304/2020 Zoster Vaccine Completed 07/14/2023, 05/19/2023 Procedures Procedure Name Priority Date/Time Associated Diagnosis Comments HEPATITIS C ANTIBODY Routine 10/13/2019 9:29 AM CDT Need for hepatitis C screening test COLONOSCOPY Routine 01/02/2018 from Last 3 Months or Most Recently Relevant to Health Maintenance Results * Hepatitis C antibody (10/13/2019 9:29 AM CDT) Hep C Ab NONREACT NONREACTIVE [facility] Comment: Siemens CentaurXP using VAHID (chemiluminescent immunoassay) [...] CLI Levar [facility] - GENERAL ORDSusana DIAS Final Result [facility] [address] [phone] * COLONOSCOPY (01/02/2018) Pathologist Critical access hospital Colonoscopy Normal Historical Provider HEALTH MAINTENANCE Final Result from Last 3 Months or Most Recently Relevant to Health Maintenance Insurance [employer] MEDICARE [facility] MEDICARE Address: [facility] [id number] [place] [address] AETNA MEDICARE [facility] [facility] Address: [facility] [id number] [place] [address] Care Teams Document Management Technician Relationship Specialty Start Date End Date Anabel Higgins MD [address] [facility] [address] [place] [address] PCP - General Internal Medicine 06/26/24 Alexander Powers MD Referring Physician Neurology 02/22/23
--- OUTSIDE RECORDS SUMMARY | 2025-07-08 15:24 | XMS_ITS | Patient Health Record ---
Author Organization [facility] Address [address] [place], [place] [id number] Care Team Providers Care Food Crops Farm Hand Name Role Phone JUAN CRESPO Unavailable [phone] Levar Moralez Unavailable Unavailable Reason For Referral No Information Social History Social History Additional Details Category Social Info Options Details Migrated Social History Migrated Social History Alcohol intake : , History of tobacco use : , Smoking Status : Never smoked Plan Of Treatment No Information Insurance Providers Payer Name Payer Address Payer Phone Subscriber Number Group Number Insured Name Patient Relationship to Insured Coverage Start Date Coverage End Date [facility] [address] [address] [place] [address] [id number] DIANA VALDEZ Self - patient is the insured
--- OUTSIDE RECORDS SUMMARY | 2025-07-08 15:24 | XMS_ITS | Patient Health Record ---
Author Organization [facility] Address [address] [facility] [address] [place] [address] Care Team Providers Care Associate Agent Insurance Sales Name Role Phone GRISELDA CRUMP Unavailable [phone] Yusuf Mackey MD Unavailable Unavailable Reason For Referral No Information Problems Problem Type SNOMED Code ICD Code Onset Dates Problem Status W/U Status Risk Notes Problem Pain in right leg (941531388) Pain in right leg (M79.604) Active confirmed Plan Of Treatment No Information Insurance Providers Payer Name Payer Address Payer Phone Subscriber Number Group Number Insured Name Patient Relationship to Insured Coverage Start Date Coverage End Date [employer] MEDICARE COMPLETE [address] [address] [place] [address] [id number] DIANA VALDEZ Self - patient is the insured
--- OUTSIDE RECORDS SUMMARY | 2025-07-08 15:24 | XMS_ITS | Encounter Summary ---
Author Organization [facility] Care Team Providers Care Attending Radiologist Name Role Phone Levar Moralez Primary Care Provider [phone] Alexander Powers MD Unavailable Unavailable Anabel Higgins MD Primary Care Provider [phone] Encounter Details Date Type Department Care Team (Latest Contact Info) Description 12/10/2017 Orders Only [facility] ProviderSamanta MD [address] [place] [id number] Social History Tobacco Use Types Packs/Day Years Used Date Smoking Tobacco: Never Assessed Sex and Gender Information Value Date Recorded Sex Assigned at Not on file Legal Sex Male 7:21 PM EXECUTIVE 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
--- OUTSIDE RECORDS SUMMARY | 2025-07-08 15:24 | XMS_ITS | Clinical Summary ---
Author Organization [facility] Address [address] [place] [address] Phone Care Team Providers Care Cushion Maker Hand Name Role Phone Levar Moralez Primary Care Provider [phone] Allergies No known active allergies Medications sertraline [...] on file Legal Sex Male 11:06 AM FACILITIES SPECIALIST Gender Identity Not on file Sexual Orientation Not on file Last Filed Vital Signs Vital Sign Reading Time Taken Comments Blood Pressure 145/84 09/16/2020 10:50 AM FACILITIES SPECIALIST Pulse 68 09/16/2020 10:50 AM FACILITIES SPECIALIST Temperature 36.7 C (98.1 F) 09/16/2020 10:50 AM FACILITIES SPECIALIST Respiratory Rate 18 08/30/2020 9:30 AM FACILITIES SPECIALIST Oxygen Saturation - - Inhaled Oxygen Concentration - - Weight 77.1 kg (170 lb) 09/16/2020 10:50 AM FACILITIES SPECIALIST Height 170.2 cm (5' 7) 09/16/2020 10:50 AM FACILITIES SPECIALIST Body Mass Index 26.63 09/16/2020 10:50 AM FACILITIES SPECIALIST Plan of Treatment Health Maintenance Due Date Last Done Comments DTAP/TDAP/TD VACCINES (1 - Tdap) 1966 ZOSTER VACCINE (1 of 2) 1997 PNEUMOCOCCAL VACCINE 50+ YEA RS (2 of 2 - PCV20 or PCV21) 10/12/2020 10/13/2019 RSV VACCINE (60+ or ) (1 - 1-dose 75+ series) 2022 INFLUENZA VACCINE (#1) 2025 Insurance [place] [id number] Care Teams Cushion Maker Hand Relationship Specialty Start Date End Date Levar Moralez PA [address] [place] [phone] PCP - General Felt Machine Mechanic 08/10/20
== END 2025-07-08 14:04 | disposition home or self-care (01) ==
PROVIDERS: PCP Physician Assistant; Visit Provider Physician Assistant
DX: E03.9 Hypothyroidism, unspecified (principal); E66.3 Overweight
CPT/HCPCS: 36415; 80053; 80061; 84439; 84443; 85027

== ENCOUNTER 2025-07-11 20:58 | Inpatient (IN) | payer MEDICARE, SELFPAY ==
--- NOTE | ~2025-07-11 | XR_ITS ---
Examination: XR hip RT 2V w AP pelvis, XR femur RT min 2V Clinical History: fall Comparison: None Technique: 2 views right hip with AP pelvis, 2 views right femur 4 films Findings/impression: Right hip with pelvis: 1. Femoral neck fracture. 2. No pelvic fracture identified. Right femur: 1. Chronic fracture. 2. Distal femur intact. 3. Knee arthroplasty intact. Reviewed, dictated and finalized at location R. E CLERK
--- NOTE | ~2025-07-11 | XR_ITS ---
EXAMINATION: XR pelvis 1-2V, 07/12/2025 15:05 SENIOR POWER PLANT OPERATOR HISTORY: post op COMPARISON: No comparisons available. Findings: Right arthroplasties intact. Right arthroplasty intact Soft tissues unremarkable. Impression: No acute fracture or malalignment. Reviewed, dictated and finalized at location P. OR POWER PLANT OPERATOR Impression: No acute fracture or malalignment.
--- NOTE | ~2025-07-11 | XR_ITS ---
EXAMINATION: XR hip RT min 2V, 07/12/2025 13:07 COLLEGE COACH HISTORY: Post-Op COMPARISON: No comparisons available. Findings: No acute fracture or malalignment. Arthroplasty is intact Soft tissues unremarkable. Impression: No acute fracture or malalignment. Reviewed, dictated and finalized at location P. EGE COACH Impression: No acute fracture or malalignment.
--- NOTE | ~2025-07-11 | XR_ITS ---
Examination: XR chest 1V Clinical History: fall Comparison: None Technique: Portable AP Findings: Heart size normal. Low lung volumes with bibasilar atelectasis. Small calcified granuloma right midlung. Tiny metallic foreign body overlying left hilum. No acute bony abnormality. IMPRESSION: 1. No acute cardiopulmonary findings given portable technique. Reviewed, dictated and finalized at location R. TIONAL EDUCATION TEACHER
[2025-07-11 21:14] VITALS: BP 168/95; PULSE 77; RESP 20; TEMP 36.4; O2SAT 99
--- NOTE | 2025-07-11 23:14 | ED_ITS ---
HPI - Extremity Injury (Lower) General Chief Complaint: Extremity Injury, Lower Stated Complaint: fall, leg pain Time Seen by Provider: 07/11/25 23:08 Source: patient Mode of arrival: EMS Limitations: no limitations History of Present Illness HPI Narrative: Patient is a 80-year-old male presents to the emergency department by EMS complaining of a fall and right leg pain. Patient notes he was trying to fold up the chair that his states and tripped and fell landing on his right side having severe right upper leg pain. Patient denies history of injuries to this region the past. Patient has not stayed up since the injury. Patient denies use of blood thinners or hitting his head or having loss of consciousness. Patient denies pain anywhere else. Patient denies any focal weakness or numbness. Related Data Home Medications ?Medication ?Instructions ?Recorded ?Confirmed ?Last Taken ?Type tamsulosin 0.4 mg capsule 0.8 mg PO DAILY 08/03/2002/2707/11/25 History sertraline 50 mg tablet 50 mg PO DAILY 10/30/2202/2707/11/25 History esomeprazole magnesium 40 mg 40 mg PO AC 07/10/2402/2707/11/25 History capsule,delayed release levothyroxine 50 mcg tablet 50 mcg PO DAILY@0630 07/1007/12/25 07/11/25 History famotidine 40 mg tablet 40 mg PO DAILY 10/04/2402/2707/11/25 History finasteride 5 mg tablet 5 mg PO DAILY 10/04/2407/1207/11/25 History donepezil 23 mg tablet 23 mg PO DAILY 07/12/2502/2707/11/25 History doxycycline hyclate 100 mg capsule 100 mg PO BID 07/1207/12/25 07/11/25 History Allergies Allergy/AdvReac Type Severity Reaction Status Date / Time No Known Allergies Allergy Verified 07/12/25 04:15 Review of Systems 2 Review of Systems: A 10 system review of systems was completed on the patient and is negative except for what is stated in the HPI. Nursing and ancillary documentation was reviewed. [facility] Past Medical History Medical History Sprain of left foot Left ankle sprain Inclusion body myositis Hypertension Lumbar spondylosis Surgical History Surgical History H/O shoulder surgery waiting on records H/O knee surgery 2016 right TKA Family History Family History Other Cancer Hypertension Social History Social History Smoking status: Former smoker Tobacco type: cigars Alcohol intake: current Drinks per week: 2 Alcohol use details: occasional Substance use: never Lack of Transportation: No Lack of Food: Never True Current Housing: I Have Housing Concerned About Future Housing: No Difficulty Paying Gas/Electric Bills: No Difficulty Paying for Meds: No Currently Unemployed: No Education: Master's Degree or Higher Difficulty w/ Childcare or Family Care: No Living arrangements: with family Additional living arrangements comments: spouse, Keke Occupation/Education: retired Gender identity (if verbalized by the patient): Male Spiritual care concerns: No Exam 2 Narrative: CONST: No acute distress. Well nourished. HENMT: Head is normocephalic and atraumatic. Moist mucous membranes. No posterior oropharynx erythema. EYES: No scleral icterus. No conjunctival injection or pallor. PERRL. NECK: No meningeal signs. RESP: Able to speak in full sentences. Normal respiratory effort. CTAB. CARDIO: Regular rate. [Regular] rhythm. 2+ DP and radial pulses bilaterally. GI: Nondistended. No tenderness to palpation. Soft. : No CVA tenderness to palpation. SKIN: No rashes or lesions noted on exposed skin. NEURO: At baseline mentation. Moves all extremities. EXTREM/MSK/BACK: No pedal edema. No midline vertebral tenderness to palpation or palpable step-offs. Right upper leg is tender to palpation, no obvious deformity. Patient is able to wiggle his toes bilaterally. Sensation intact to light touch throughout the bilateral lower extremities. PSYCH: Normal affect. Course Vital Signs Vital signs: Vital Signs Temperature 97.6 F 07/11/25 21:14 Pulse Rate 77 07/11/25 21:14 Respiratory Rate 20 07/11/25 21:14 Blood Pressure 168/95 H 07/11/25 21:14 Pulse Oximetry 99 07/11/25 21:14 Oxygen Delivery Room Air 07/11/25 21:14 Temperature 97.3 F L 07/12/25 06:00 Pulse Rate 80 07/12/25 06:00 Respiratory Rate 16 07/12/25 06:00 Blood Pressure 123/71 07/12/25 06:00 Pulse Oximetry 99 07/12/25 06:00 Oxygen Delivery Room Air 07/12/25 04:31 [facility] Narrative Medical decision making narrative: Patient presents with the above complaint. Initial vitals are remarkable for no significant abnormalities. Physical examination as noted above. Plan discussed: laboratory analysis, EKG, imaging. Patient ordered fentanyl, IV fluids, Zofran, continues cardiac monitoring, continuous pulse oximetry. I spoke with Orthopedics on-call Dr. Rome devries to make the patient NPO, will see the patient on consultation, admit to the hospitalist. I spoke with the hospitalist on-call who has accepted the patient for admission. Differential Diagnosis Differential Diagnosis: Fracture, contusion, sprain, strain, other acute traumatic injuries. Lab Data [facility] Lab Attestation statement: I personally reviewed the patient's lab results. Lab results narrative: CBC reveals a white blood cell count 17.3. Coags are within normal limits. Comprehensive metabolic panel reveals a potassium of 3.3, sodium 136, AST of 64, ALT of 58. Total creatine kinase is 175. Lipase is 73. Magnesium is 2.0. Lactic acid is 1.4. Urinalysis reveals trace ketones, 2+ leukocyte esterase, 3- 5 RBCs, 21-50 wbc's, no bacteria. 07/12/25 05:02 07/12/25 05:02 Labs: Lab Results 07/12/25 07/12/25 Range/Units 00:05 01:42 WBC 17.3 H (4.5-10.0) K/mm3 RBC 5.64 (4.6-6.20) M/mm3 Hgb 16.1 (14.0-18.0) g/dL Hct 47.0 (42.0-52.0) % MCV 83.3 (80-100) fl MCH 28.5 (26-34) pg MCHC 34.3 (32-36) g/dl RDW 13.8 (11.5-14.5) % Plt Count 339 (150-375) k/mm3 MPV 8.6 (7.4-10.4) fl Immature Gran % (Auto) 0.7 H (0-0.5) % Neut % (Auto) 72.8 (45.5-73.1) % Lymph % (Auto) 14.8 L (18.3-44.2) % Wilkin % (Auto) 9.4 H (2.6-8.5) % Eos % (Auto) 1.7 (0-4.4) % Baso % (Auto) 0.6 (0.2-1.2) % Lymph # (Auto) 2.56 (0.9-3.2) K/mm3 Wilkin # (Auto) 1.6 H (0.1-0.6) K/mm3 Eos # (Auto) 0.3 (0-0.3) K/mm3 Baso # (Auto) 0.1 (0.0-0.1) K/mm3 Abs Immat Gran (auto) 0.12 H (0.00-0.031) K/mm3 Absolute Neuts (auto) 12.6 H (1.3-6.7) K/mm3 Absolute Nucleated RBC 0.000 (0.0-0.012) K/mm3 Nucleated RBC % 0.0 (0.0-0.2) % PT 14.7 (11.1-14.7) Seconds INR 1.1 APTT 33.1 (22.3-36.8) Seconds Sodium 136 L (137-145) mmol/L Potassium 3.3 L (3.4-5.0) mmol/L Chloride 108 H (98-107) mmol/L Carbon Dioxide 22 (22-30) mmol/L Anion Gap 6 (4-12) mmol/L BUN 19 (9-20) mg/dL Creatinine 0.57 L (0.7-1.3) mg/dL Estim Creat Clear Calc 84 ml/min Estimated GFR > 60 (59 - ) Glucose 97 (65-110) mg/dL Lactic Acid 1.4 (0.7-2.0) mmol/L Calcium 8.8 (8.4-10.2) mg/dL Magnesium 2.0 (1.6-2.3) mg/dL Total Bilirubin 0.7 (0.2-1.3) mg/dL AST 64 H (17-59) U/L ALT 58 H (6-50) U/L Alkaline Phosphatase 122 (38-126) U/L Total Creatine Kinase 875 H (55-170) U/L Total Protein 6.5 (6.3-8.2) g/dL Albumin 3.8 (3.5-5.1) g/dL Lipase 73 (23-300) U/L Urine Color Yellow (Yellow) Urine Appearance Clear (Clear) Urine pH 6.0 (5.0-9.0) Ur Specific Farber 1.023 (1.001-1.035) Urine Protein Trace (Negative) mg/dL Urine Glucose (UA) Negative (Negative) mg/dL Urine Ketones Trace H (Negative) mg/dL Ur Blood (Man) Negative (Negative) Urine Nitrate Negative (Negative) Urine Bilirubin Negative (Negative) Urine Urobilinogen 1.0 (<2.0) mg/dL Add Ur Microanalysis Reviewed Leukocyte Esterase Rfl 2+ H (Negative) SAMIR/UL Urine RBC 3-5 H (0-2) /hpf Urine WBC 21-50 H (0-3) /hpf Ur Squamous Epith Cells None seen (Few) /hpf Urine Bacteria None seen /hpf Urine Casts 0-2 Blood Type O Positive Antibody Screen Negative Imaging Data Attestation: I personally reviewed and interpreted this imaging study as follows: My impression: Right hip appears to be fractured on my initial interpretation, official radiology interpretation pending. ECG Data EKG #1: Attestation: I personally reviewed and interpreted this ECG as follows: ECG completion date: 07/12/25 ECG completion time: 00:07 Interpretation: Rate of 76, rhythm is sinus rhythm, left anterior fascicular block, moderate voltage criteria for LVH, PA interval 177 milliseconds, no ST elevations or depressions. Discharge Plan Discharge Clinical Impression: Closed fracture of right hip, Fall Patient Disposition: Still a Patient Condition: Stable Time of Disposition: 01:13
[2025-07-11] MEDS: fentaNYL CITRATE INJ (*CRX) 100 MCG/2 ML VIAL 50 MCG IV PUSH (23:17)
--- NOTE | 2025-07-11 23:46 | ECG_ITS ---
Test Date: 2025-07-12 00:07:07 Measurements Intervals [place] Rate: 76 P: 54 WA: 177 QRS: -53 QRSD: 97 T: 70 QT: 378 QTc: 426 Interpretive Statements SINUS RHYTHM WITH OCCASIONAL VENTRICULAR PREMATURE COMPLEXES LEFT VENTRICULAR HYPERTROPHY WITH ST-T CHANGE LEFT ANTERIOR FASCICULAR BLOCK BASELINE ARTIFACT- I, II, III, AVR, AVL, AVF, V1-V6 ABNORMAL ECG No previous ECG available for comparison Electronically Signed On 07-12-2025 09:25:17 BUSINESS LAW TEACHER by Chucho Benavides D.O.
[2025-07-12] VITALS (14 sets, daily range): BP systolic 120–172; BP diastolic 71–98; PULSE 75–98; RESP 14–20; TEMP 36.1–36.8; O2SAT 92–99; BMI 25.4
[2025-07-12 00:14] LABS: Hematocrit 47.0 % (42.0-52.0); Hemoglobin 16.1 g/dL (14.0-18.0); Immature Granulocyte Percent A 0.7 % (0-0.5); Lymphocytes Absolute Auto 2.56 K/mm3 (0.9-3.2); Mean Corpuscular HGB Conc 34.3 g/dl (32-36); Mean Corpuscular Hemoglobin 28.5 pg (26-34); Mean Corpuscular Volume 83.3 fl (80-100); Nucleated Red Blood Cells Absolute Auto 0.000 K/mm3 (0.0-0.012); Nucleated Red Blood Cells Perc 0.0 % (0.0-0.2); Platelet Count Result 339 k/mm3 (150-375); Red Blood Count 5.64 M/mm3 (4.6-6.20); White Blood Count 17.3 K/mm3 (4.5-10.0)
--- OUTSIDE RECORDS SUMMARY | 2025-07-12 00:14 | XMS_ITS | Clinical Summary ---
Author Organization [facility] Address [address] [place] [address] Phone Care Team Providers Care Target Setter Name Role Phone Levar Moralez Primary Care Provider [phone] Allergies No known active allergies Medications sertraline [...] on file Legal Sex Male 11:06 AM GAS AND OIL CHECKER Gender Identity Not on file Sexual Orientation Not on file Last Filed Vital Signs Vital Sign Reading Time Taken Comments Blood Pressure 145/84 09/16/2020 10:50 AM GAS AND OIL CHECKER Pulse 68 09/16/2020 10:50 AM GAS AND OIL CHECKER Temperature 36.7 C (98.1 F) 09/16/2020 10:50 AM GAS AND OIL CHECKER Respiratory Rate 18 08/30/2020 9:30 AM GAS AND OIL CHECKER Oxygen Saturation - - Inhaled Oxygen Concentration - - Weight 77.1 kg (170 lb) 09/16/2020 10:50 AM GAS AND OIL CHECKER Height 170.2 cm (5' 7) 09/16/2020 10:50 AM GAS AND OIL CHECKER Body Mass Index 26.63 09/16/2020 10:50 AM GAS AND OIL CHECKER Plan of Treatment Health Maintenance Due Date Last Done Comments DTAP/TDAP/TD VACCINES (1 - Tdap) 1966 ZOSTER VACCINE (1 of 2) 1997 PNEUMOCOCCAL VACCINE 50+ YEA RS (2 of 2 - PCV20 or PCV21) 10/12/2020 10/13/2019 RSV VACCINE (60+ or ) (1 - 1-dose 75+ series) 2022 INFLUENZA VACCINE (#1) 2025 Insurance [place] [id number] Care Teams Target Setter Relationship Specialty Start Date End Date Levar Moralez PA [address] [place] [phone] PCP - General Surgical Appliances Salesperson 08/10/20
--- OUTSIDE RECORDS SUMMARY | 2025-07-12 00:14 | XMS_ITS | Clinical Summary ---
Author Organization [facility] Address [address] [place] [address] Care Team Providers Care Mailer Name Role Phone Alexander Powers MD Unavailable Unavailable Anabel Higgins MD Primary Care Provider Allergies No known active allergies Medications multivitamin [...] 08/24/2021 Assessment & Plan (08/31/2021 3:09 PM BILLING SPEC): This is moderately improved were going to continue ice and [id number] exercises we did discuss option for physical therapy Assessment & Plan (08/24/2021 4:10 PM BILLING SPEC): No signs of fx on exam will [...] 10/13/2020 Assessment & Plan (10/13/2020 11:13 AM BILLING SPEC): Repeat cbc Olecranon bursitis of left elbow 04/06/2020 Assessment & Plan (08/31/2021 3:09 PM BILLING SPEC): This is moderately improved will continue to [...] Neurology Assessment & Plan (07/11/2023 11:34 AM BILLING SPEC): This is mild and patient's is with [...] follow Assessment & Plan (08/31/2021 3:09 PM BILLING SPEC): This appears very stable will continue to follow Assessment & Plan (04/25/2021 2:14 PM CDT): Taking medications and appears very stable Assessment & Plan (10/13/2020 11:06 AM BILLING SPEC): On 10 mg, feels better, will try 23 mg and f/u 3 months Assessment & Plan (04/06/2020 9:49 AM CDT): This appears very stable, CPM, will follow Mass of right testicle 05/26/2019 Assessment & Plan (05/02/2021 7:11 AM CDT): Non-tender, will get US Encounter for general adult medical examination with abnormal findings 11/28/2018 Assessment & Plan (07/11/2023 11:34 AM BILLING SPEC): Healthcare maintenance updated immunizations reviewed Assessment & [...] follow Assessment & Plan (07/11/2023 11:34 AM BILLING SPEC): This is well controlled with no SI HI will continue to follow Assessment & Plan (01/18/2023 3:23 PM CDT): excellend control, CPM Assessment & Plan (10/25/2022 10:14 AM CDT): Controlled, CPM Assessment & Plan (06/19/2022 2:02 PM BILLING SPEC): Increased, will increase zoloft, f/u routine Assessment & Plan (04/26/2022 11:12 AM CDT): Well controlled with medications, no SI/HI Assessment & Plan (01/24/2022 8:53 AM CDT): Well controlled Assessment & Plan (10/24/2021 1:08 PM CDT): Stable, CPM Assessment & Plan (01/13/2021 11:17 AM CDT): This is in good control, continue current meds, follow-up 6 months Assessment & Plan (10/13/2020 11:06 AM BILLING SPEC): Well controlled with meds Assessment & Plan [...] fall Assessment & Plan (10/13/2020 11:06 AM BILLING SPEC): No falls Encounter for screening for other [...] routine Assessment & Plan (07/11/2023 11:34 AM BILLING SPEC): This is currently well controlled with medications continue current meds follow- up routine Assessment & Plan (10/25/2022 10:13 AM CDT): Controlled, CPM Assessment & Plan (06/19/2022 2:02 PM BILLING SPEC): CPM Assessment & Plan (04/26/2022 11:11 AM CDT): Controlled with meds Assessment & Plan (02/21/2022 10:18 AM CDT): Controlled with medications, CPM Assessment & Plan (01/24/2022 8:53 AM CDT): Controlled and CPM Assessment & Plan (08/31/2021 3:08 PM BILLING SPEC): This is controlled will continue current medications [...] understanding Assessment & Plan (07/11/2023 11:34 AM BILLING SPEC): Avoid spicy, fried, greasy foods Keep hydrated [...] understanding Assessment & Plan (08/31/2021 3:08 PM BILLING SPEC): Images from the original note were not [...] AM CDT [facility] [address] [place] [phone] Keysha Dixon MD Late onset Alzheimer's [...] on file Legal Sex Male 7:21 PM BILLING SPEC Gender Identity Not on file Sexual Orientation [...] AM CDT) Hep C Ab NONREACT NONREACTIVE [facility] Comment: Siemens CentaurXP using VAHID (chemiluminescent [...] MICROBIOLOGY - GENERAL ORDSusana DIAS Final Result [facility] [address] [phone] * COLONOSCOPY (01/02/2018) Pathologist [facility] Colonoscopy Normal Historical Provider HEALTH MAINTENANCE Final Result from Last 3 Months or Most Recently Relevant to Health Maintenance Insurance AETNA MEDICARE AETNA MEDICARE AETNA MEDICARE Care Teams Mailer Relationship Specialty Start Date End Date Anabel Higgins MD [address] [facility] [address] [place] [address] PCP - General Internal Medicine 06/26/24 Alexander Powers MD Referring Physician Neurology 02/22/23
--- OUTSIDE RECORDS SUMMARY | 2025-07-12 00:14 | XMS_ITS | Patient Health Record ---
Author Organization [facility] Address [address] [facility] [address] [place] [address] Care Team Providers Care Program Manager Rn Name Role Phone GRISELDA CRUMP Unavailable [phone] Yusuf Mackey MD Unavailable Unavailable Reason For Referral No Information Problems Problem Type SNOMED Code ICD Code Onset Dates Problem Status W/U Status Risk Notes Problem Pain in right leg (409672871) Pain in right leg (M79.604) Active confirmed Plan Of Treatment No Information Insurance Providers Payer Name Payer Address Payer Phone Subscriber Number Group Number Insured Name Patient Relationship to Insured Coverage Start Date Coverage End Date [employer] COMPLETE [address] [address] [place] [address] [id number] DIANA VALDEZ Self - patient is the insured
--- OUTSIDE RECORDS SUMMARY | 2025-07-12 00:14 | XMS_ITS | Patient Health Record ---
Author Organization [facility] Address [address] [place], [place] [id number] Care Team Providers Care Guest Laundry Attendant Name Role Phone JUAN CRESPO Unavailable [phone] Levar Moralez Unavailable Unavailable Reason For Referral [...] Insured Coverage Start Date Coverage End Date [facility] [address] [address] [place] [address] [id number] DIANA VALDEZ Self - patient is the insured
[2025-07-12 00:21] LABS: Alanine Aminotransferase 58 U/L (6-50); Albumin Level 3.8 g/dL (3.5-5.1); Alkaline Phosphatase 122 U/L (38-126); Anion Gap 6 mmol/L (4-12); Aspartate Amino Transferase 64 U/L (17-59); Bilirubin,Total 0.7 mg/dL (0.2-1.3); Blood Urea Nitrogen 19 mg/dL (9-20); Calcium 8.8 mg/dL (8.4-10.2); Carbon Dioxide 22 mmol/L (22-30); Chloride 108 mmol/L (98-107); Creatine Kinase 875 U/L (55-170); Estimated CRCL calculation 84 ml/min; Estimated Glomerular Filt Rate > 60; Glucose 97 mg/dL (65-110); Lipase 73 U/L (23-300); Magnesium 2.0 mg/dL (1.6-2.3); Potassium 3.3 mmol/L (3.4-5.0); Sodium 136 mmol/L (137-145); Total Protein 6.5 g/dL (6.3-8.2)
[2025-07-12] MEDS: SODIUM CHLORIDE 0.9% IV 1,000 ML 150 ML IV CONT (00:23)
[2025-07-12 00:24] LABS: Add Urine Microscopic? YES; Appearance Urine Clear (Clear); Glucose Urine UA Negative (Negative); INR 1.1; Leukocyte Esterase Ur 2+ LEU/UL (Negative); Need Manual Microscopic Reviewed; Nitrate Urine Negative (Negative); Non Pathogenic Casts 0-2; Prothrombin Time 14.7 Seconds (11.1-14.7); Specific Grav Ur 1.023 (1.001-1.035)
[2025-07-12 00:25] LABS: Partial Thromboplastin Time 33.1 Seconds (22.3-36.8)
[2025-07-12] MEDS: ONDANSETRON INJ 4 MG/2 ML VIAL IV PUSH (00:27)
[2025-07-12] MEDS: HYDROmorphone HCL INJ (*CRX) 1 MG/ML SYR IV PUSH ×2 (01:17→22:51)
--- NOTE | 2025-07-12 03:09 | WPCEDHO ---
ED Hand Off Checklist All vitals saved:yes IV Site documented:yes All med administrations documented:yes Triage Note Triage Note Pt to ED from home after slipping 07/11/25 21:14 on ice and having GLF. Endorses pain to right femur. Denies hitting head or taking blood thinners. No LOC. Allergies No Known Allergies Allergy (Verified 06/17/25 10:08) Family History (Last Reviewed 06/17/25 @ 12:26 by Gareth Wilde MD) Other Cancer Hypertension Active Medications including assessments/comments Sodium Chloride (Normal Saline Iv) 1,000 mls @ 150 mls/hr IV CONT .[id number] STA Stop: 07/12/25 06:25 Last Infusion: 07/12/25 01:28 Dose: Infused Documented By: SRW Infusion/Titration Document 07/12/25 01:28 OLGA (Rec: 07/12/25 01:29 SRW [id number]) Intake IV Site Peripheral Access Left Wrist Intake 1,000 Cumulative Intake ( 1,000 bag) Cumulative Intake ( 1,000 Rx) Container Volume 0 Waste Amount 0 Dosing Infusion Rate 0 Cumulative Dose Not Applicable Increase/Decrease Infused Elapsed Time Elapsed Time ( 1h 5m minutes) Admin: 07/12/25 00:23 Dose: 150 mls/hr Documented By: SRW Infusion/Titration Document 07/12/25 00:23 SRW (Rec: 07/12/25 00:23 SRW [id number]) Intake IV Site Peripheral Access Left Wrist Container Volume 1,000 Waste Amount 0 Dosing Infusion Rate 150 Cumulative Dose Not Applicable Increase/Decrease Started Elapsed Time Elapsed Time ( 0m minutes) Administered/Completed Medications Discontinued Medications Fentanyl Citrate (Fentanyl Citrate Inj (*Crx) 100 Mcg/2 Ml Vial) 50 mcg IV PUSH ONCE STA Stop: 07/11/25 23:14 Last Admin: 07/11/25 23:17 Dose: 50 mcg Documented By: SRW Hydromorphone HCl (Hydromorphone Hcl Inj (*Crx) 1 Mg/Ml Syr) 1 mg IV PUSH ONCE STA Stop: 07/12/25 01:15 Last Admin: 07/12/25 01:17 Dose: 1 mg Documented By: SRW Ondansetron HCl (Ondansetron Inj 4 Mg/2 Ml Vial) 4 mg IV PUSH ONCE STA Stop: 07/11/25 23:47 Last Admin: 07/12/25 00:27 Dose: 4 mg Documented By: OLGA Interventions/Assessments IV / Saline Lock, Insert Start: 07/11/25 20:51 Freq: Status: Active Protocol: Document 07/12/25 00:23 SRW (Rec: 07/12/25 00:23 SRW [id number]) IV Assessment Peripheral Access Left Wrist IV Catheter Access Initiated Before Arrival Catheter Gauge 20 IV Site Assessment WNL IV Care and WNL Maintenance Last Vital Signs Temperature 97.6 F 07/11/25 21:14 Pulse Rate 77 07/11/25 21:14 Respiratory Rate 20 07/11/25 21:14 Pulse Oximetry 99 07/11/25 21:14 Blood Pressure 168/95 H 07/11/25 21:14 Blood Pressure Mean 119 07/11/25 21:14 Oxygen Delivery Room Air 07/11/25 21:14 Weight 69.2 kg 07/11/25 21:14 Last Result - Abnormals Only WBC 17.3 K/mm3 (4.5-10.0) H 07/12/25 00:05 Immature Gran % (Auto) 0.7 % (0-0.5) H 07/12/25 00:05 Lymph % (Auto) 14.8 % (18.3-44.2) L 07/12/25 00:05 [place] % (Auto) 9.4 % (2.6-8.5) H 07/12/25 00:05 [place] # (Auto) 1.6 K/mm3 (0.1-0.6) H 07/12/25 00:05 Abs Immat Gran (auto) 0.12 K/mm3 (0.00-0.031) H 07/12/25 00:05 Absolute Neuts (auto) 12.6 K/mm3 (1.3-6.7) H 07/12/25 00:05 Sodium 136 mmol/L (137-145) L 07/12/25 00:05 Potassium 3.3 mmol/L (3.4-5.0) L 07/12/25 00:05 Chloride 108 mmol/L (98-107) H 07/12/25 00:05 Creatinine 0.57 mg/dL (0.7-1.3) L 07/12/25 00:05 AST 64 U/L (17-59) H 07/12/25 00:05 ALT 58 U/L (6-50) H 07/12/25 00:05 Total Creatine Kinase 875 U/L (55-170) H 07/12/25 00:05 Urine Ketones Trace mg/dL (Negative) H 07/12/25 00:05 Leukocyte Esterase Rfl 2+ SAMIR/UL (Negative) H 07/12/25 00:05 Urine RBC 3-5 /hpf (0-2) H 07/12/25 00:05 Urine WBC 21-50 /hpf (0-3) H 07/12/25 00:05 Most Recent Suicide Severity Rating Suicide Severity Rating NO RISK INDICATED 07/11/25 21:14
--- NOTE | 2025-07-12 03:13 | PC.NURSE ---
report given to assigned floor nurse. ready for transport
--- NOTE | 2025-07-12 03:37 | PM.IMHP2 ---
H&P: HPI History of Present Illness Date/Time: 07/12/25 03:37 Chief Complaint: Fall Narrative: 72-year-old male with PMH inclusion body myositis, hypertension, lumbar spondylosis, hypothyroidism, dementia, BPH, presents to [facility] via EMS on 07/11/2025 after a fall and right leg pain. The patient lives with his . The patient was trying to fold a chair and he tripped and fell and landed on his right side with severe right upper leg pain. Blood pressure elevated at 157/93, otherwise hemodynamically stable and saturating well on room air. WBC 17.3, hemoglobin 16.1, patient appears dehydrated. Potassium 3.3, mild transaminitis, and creatinine kinase 875. Urinalysis 2+ leukocyte esterase, 21-50 WBC, no bacteria. Patient denies urinary frequency, foul odor, dysuria. Hip x-ray reveals patient given Zofran, fentanyl 50 mcg. He again was in severe pain writhing in pain. Given Dilaudid 1 mg IV x1. Patient resting comfortably thereafter. Started on sodium chloride at 150 cc/hour. Review of Systems Review of Systems: All systems reviewed & are unremarkable except as noted in HPI and below (Subjective) [facility] Past Medical History Medical History Sprain of left foot Left ankle sprain Inclusion body myositis Hypertension Lumbar spondylosis Surgical History Surgical History H/O shoulder surgery waiting on records H/O knee surgery 2016 right TKA Family History Family History Other Cancer Hypertension Social History Social History Smoking status: Never smoker Alcohol intake: current Alcohol use details: occasional Living arrangements: with family Additional living arrangements comments: spouse, Keke Occupation/Education: retired Gender identity (if verbalized by the patient): Male Meds Home Medications and Allergies Home Medications ?Medication ?Instructions ?Recorded ?Confirmed ?Type donepezil 10 mg tablet 23 mg PO ONCE 08/03/20 06/17/25 History tamsulosin 0.4 mg capsule 0.4 mg PO DAILY 08/03/20 06/17/25 History sertraline 50 mg tablet 50 mg PO DAILY 10/30/22 06/17/25 History esomeprazole magnesium 40 mg mg 07/10/24 06/17/25 History capsule,delayed release levothyroxine 50 mcg tablet mcg 07/10/24 06/17/25 History famotidine 40 mg tablet mg 10/04/24 06/17/25 History finasteride 5 mg tablet mg 10/04/24 06/17/25 History Allergies Allergy/AdvReac Type Severity Reaction Status Date / Time No Known Allergies Allergy Verified 06/17/25 10:08 Vital Signs Vital Signs - 24 hr 07/11/25 21:14 Temperature 97.6 F Pulse Rate 77 Respiratory Rate 20 Blood Pressure 168/95 H Pulse Oximetry 99 Oxygen Delivery Room Air Exam Const: General: comfortable and no acute distress Other: A&O x3 HENMT: Mouth: Yes moist mucous membranes Eyes: Pupils: Equal, round and reactive pupils present Neck: Neck: supple Resp: Effort & Inspection: normal respiratory effort Auscultation: clear to auscultation bilaterally Cardio: Rate: regular rate Rhythm: regular rhythm GI: Inspection: non-distended GI Palp: Yes Soft to palpation Neuro: Other: Right lower extremity motor function limited by pain. Neurovascular intact. Sensation intact all 4 extremities Extrem: General: no edema Results Labs Labs: Short CBC 07/12/25 Range/Units 00:05 WBC 17.3 H (4.5-10.0) K/mm3 Hgb 16.1 (14.0-18.0) g/dL Hct 47.0 (42.0-52.0) % Plt Count 339 (150-375) k/mm3 [facility] 07/12/25 00:05 Sodium 136 L Potassium 3.3 L Chloride 108 H Carbon Dioxide 22 BUN 19 Creatinine 0.57 L Glucose 97 Calcium 8.8 Cardiac Enzymes 07/12/25 Range/Units 00:05 Total Creatine Kinase 875 H (55-170) U/L Liver Function 07/12/25 Range/Units 00:05 Total Bilirubin 0.7 (0.2-1.3) mg/dL AST 64 H (17-59) U/L ALT 58 H (6-50) U/L Alkaline Phosphatase 122 (38-126) U/L Albumin 3.8 (3.5-5.1) g/dL Urine 07/12/25 Range/Units 00:05 Urine Color Yellow (Yellow) Urine Appearance Clear (Clear) Urine pH 6.0 (5.0-9.0) Ur Specific [place] 1.023 (1.001-1.035) Urine Protein Trace (Negative) mg/dL Urine Glucose (UA) Negative (Negative) mg/dL Assessment and Plan Assessment and plan (1) Closed fracture of right hip: Code(s): S72.001A - Fracture of unspecified part of neck of right femur, initial encounter for closed fracture Status: Acute Plan NPO. Fall precautions. Orthopedic surgery consultation. Tylenol, [place], Dilaudid p.r.n.. Continue sodium chloride maintenance fluids. Trend creatinine kinase level Replace potassium, recheck with magnesium. Follow leukocytosis, likely reactive and from hemoconcentration, check procalcitonin. Patient wishes to be full code. SCDs. Time Spent with Patient Time with patient: less than 45 minutes Hospitalist MIPS Advance Care Plan I have confirmed that the patient's Advanced Care Plan is present, code status is documented, or surrogate decision maker is listed in patient medical record.: Yes Medication Reconciliation I have utilized all available resources to obtain, update and review the patients current medications (includes all prescriptions, OTC, herbals, cannabis, and nutritional supplements).: Yes
[2025-07-12] MEDS: HYDROmorphone HCL INJ (*CRX) 1 MG/ML SYR 0.5 MG IV PUSH (03:44)
--- NOTE | 2025-07-12 03:45 | ADMGEN ---
This patient, Don Timmons, was admitted to [facility] Room 314-02. Patient/family oriented to hospital policies and general routines including ID bracelet, bed and alarms, visiting hours, pain management, procedures, bathroom and other care routines, personal items, smoking policy, room service/diet, and visiting hours. Information on how to activate the Rapid Response Team has been discussed. Patient/Family are encouraged to report perceived risks to care and to ask questions if they do not understand what they are told or what they should do.
[2025-07-12] MEDS: ceFAZolin 2 GM in SODIUM CHLORIDE 0.9% IV 50 ML 100 ML IVPB ×3 (04:48→22:52)
[2025-07-12] MEDS: POTASSIUM CHLORIDE 20 MEQ ER TABLET PO (04:48)
--- NOTE | 2025-07-12 05:57 | PC.NURSE ---
As, per the endorsement from the ER nurse the patient was AOX3 at the ER.But as soon as he is in on the floor he couldnt remember why he is in the hospital.As, he has the history of dementia.But right now he is aOX2, with periods of confusion.
[2025-07-12 06:01] LABS: Hematocrit 44.5 % (42.0-52.0); Hemoglobin 14.9 g/dL (14.0-18.0); Immature Granulocyte Percent A 0.5 % (0-0.5); Lymphocytes Absolute Auto 1.79 K/mm3 (0.9-3.2); Mean Corpuscular HGB Conc 33.5 g/dl (32-36); Mean Corpuscular Hemoglobin 28.4 pg (26-34); Mean Corpuscular Volume 84.9 fl (80-100); Nucleated Red Blood Cells Absolute Auto 0.000 K/mm3 (0.0-0.012); Nucleated Red Blood Cells Perc 0.0 % (0.0-0.2); Platelet Count Result 316 k/mm3 (150-375); Red Blood Count 5.24 M/mm3 (4.6-6.20); White Blood Count 13.5 K/mm3 (4.5-10.0)
--- NOTE | 2025-07-12 06:18 | ECG_ITS ---
Test Date: 2025-07-12 07:21:54 Measurements Intervals [place] Rate: 84 P: 120 OH: 164 QRS: 227 QRSD: 107 T: 148 QT: 371 QTc: 439 Interpretive Statements SINUS RHYTHM LIMB LEAD REVERSAL DELAYED PRECORDIAL R/S TRANSITION BASELINE ARTIFACT- I, II, III, AVR, AVL ,AVF, V1-V6 BORDERLINE ECG Compared to ECG 07/12/2025 00:07:07 NO SIGNIFICANT CHANGE Electronically Signed On 07-12-2025 09:11:24 CLINICAL RESEARCH TECHNICIAN by Chucho Benavides D.O.
[2025-07-12 06:25] LABS: Anion Gap 6 mmol/L (4-12); Blood Urea Nitrogen 18 mg/dL (9-20); Calcium 8.1 mg/dL (8.4-10.2); Carbon Dioxide 22 mmol/L (22-30); Chloride 109 mmol/L (98-107); Creatine Kinase 689 U/L (55-170); Estimated CRCL calculation 82 ml/min; Estimated Glomerular Filt Rate > 60; Glucose 99 mg/dL (65-110); Magnesium 2.1 mg/dL (1.6-2.3); Potassium 3.5 mmol/L (3.4-5.0); Sodium 137 mmol/L (137-145)
--- NOTE | 2025-07-12 06:38 | PC.NURSE ---
Patient's next of kin, his son Mr Iain Power was called for the verbal consent for his surgery Right hip partial replacement and for the blood transfusion but he wants his mother to be informed about the surgery, so he is trying to reach out to his mom and will call back after some minutes for the verbal consent . I also tried to call her from the patient's phone but she is not picking up the phone right now.I also informed his son to bring his home medicines for the confirmation of dosage and frequency.
[2025-07-12 06:49] LABS: Procalcitonin 0.1 ng/mL
--- NOTE | 2025-07-12 09:17 | P.PNIM_ITS ---
Assessment and Plan Assessment and Plan (1) Closed fracture of right hip: Code(s): S72.001A - Fracture of unspecified part of neck of right femur, initial encounter for closed fracture Status: Acute Plan NPO. Fall precautions. Orthopedic surgery consultation. Tylenol, [place], Dilaudid p.r.n.. Continue sodium chloride maintenance fluids. Trend creatinine kinase level Replace potassium, recheck with magnesium. Follow leukocytosis, likely reactive and from hemoconcentration, check procalcitonin. 07/12- surgery today at 10 am -continue pain, nausea control home meds reviewed and restarted Patient wishes to be full code. SCDs. Medical Record Review I have reviewed the following patient records and this information was taken into consideration when formulating the assessment and plan.: previous labs, previous ER visits, previous hospitalizations and previous clinic visits Time Spent With Patient Time with patient: 25 - 35 minutes Subjective Date/time seen: 07/12/25 09:17 Interval history: 72-year-old male with PMH inclusion body myositis, hypertension, lumbar spondylosis, hypothyroidism, dementia, BPH, presents to [facility] via EMS on 07/11/2025 after a fall and right leg pain. The patient lives with his . The patient was trying to fold a chair and he tripped and fell and landed on his right side with severe right upper leg pain. Blood pressure elevated at 157/93, otherwise hemodynamically stable and saturating well on room air. WBC 17.3, hemoglobin 16.1, patient appears dehydrated. Potassium 3.3, mild transaminitis, and creatinine kinase 875. Urinalysis 2+ leukocyte esterase, 21- 50 WBC, no bacteria. Patient denies urinary frequency, foul odor, dysuria. Hip x-ray reveals patient given Zofran, fentanyl 50 mcg. He again was in severe pain writhing in pain. Given Dilaudid 1 mg IV x1. Patient resting comfortably thereafter. Started on sodium chloride at 150 cc/hour. Ortho is consulted and pt is to go to surgery at 10 am. Pain is well controlled. Review of Systems Review of Systems: All systems reviewed & are unremarkable except as noted in HPI and below (Subjective) Exam Const: General: comfortable and no acute distress Other: A&O x3 HENMT: Mouth: Yes moist mucous membranes Eyes: Pupils: Equal, round and reactive pupils present Neck: Neck: supple Resp: Effort & Inspection: normal respiratory effort Auscultation: clear to auscultation bilaterally Cardio: Rate: regular rate Rhythm: regular rhythm GI: Inspection: non-distended Neuro: Cranial nerves: Yes Equal, round and reactive pupils present Other: Right lower extremity motor function limited by pain. Neurovascular intact. Sensation intact all 4 extremities Extrem: General: no edema Objective Data Vital Signs Vital Signs: Vital Signs - 24 hr 07/11/25 21:14 07/12/25 00:05 07/12/25 03:41 Temperature 97.6 F 98.2 F Pulse Rate 77 82 78 Respiratory Rate 20 18 18 Blood Pressure 168/95 H 172/98 H 168/88 H Pulse Oximetry 99 98 99 Oxygen Delivery Room Air 07/12/25 04:31 07/12/25 06:00 Temperature 97.3 F L Pulse Rate 78 80 Respiratory Rate 18 16 Blood Pressure 123/71 Pulse Oximetry 99 99 Oxygen Delivery Room Air Intake/Output Intake/Output: Intake & Output 07/09/25 07/10/25 07/11/25 07/12/25 23:59 23:59 23:59 23:59 Intake Total 1000 Output Total 200 Balance 800 Meds/Results Medications: Active Medications Generic Name Dose Route Start Last Admin Trade Name Freq PRN Reason Stop Dose Admin Acetaminophen 325 mg 07/12/25 03:44 Acetaminophen 325 Mg Tablet PO Q4H PRN Mild Pain (1-3) or Fever Hydrocodone Bitart/Acetaminophen 1 tab 07/12/25 03:44 Hydrocodone/Acetaminophen (*Crx) 10-325 Mg Tablet PO Q4H PRN Pain Rated 7-10 Hydromorphone HCl 0.5 mg 07/12/25 01:13 07/12/25 03:44 Hydromorphone Hcl Inj (*Crx) 1 Mg/Ml Syr IV PUSH 0.5 mg Q4H PRN Administration Pain Rated 7-10 Radiology Results: ITS Impressions Chest X-Ray 07/12/25 09:10 IMPRESSION: 1. No acute cardiopulmonary findings given portable technique. Labs Labs: Laboratory Results - last 24 hr 07/12/25 07/12/25 07/12/25 00:05 01:42 05:02 WBC 17.3 H 13.5 H RBC 5.64 5.24 Hgb 16.1 14.9 Hct 47.0 44.5 MCV 83.3 84.9 MCH 28.5 28.4 MCHC 34.3 33.5 RDW 13.8 13.8 Plt Count 339 316 MPV 8.6 8.8 Immature Gran % (Auto) 0.7 H 0.5 Neut % (Auto) 72.8 72.7 Lymph % (Auto) 14.8 L 13.3 L [place] % (Auto) 9.4 H 11.2 H Eos % (Auto) 1.7 1.6 Baso % (Auto) 0.6 0.7 Lymph # (Auto) 2.56 1.79 [place] # (Auto) 1.6 H 1.5 H Eos # (Auto) 0.3 0.2 Baso # (Auto) 0.1 0.1 Abs Immat Gran (auto) 0.12 H 0.07 H Absolute Neuts (auto) 12.6 H 9.8 H Absolute Nucleated RBC 0.000 0.000 Nucleated RBC % 0.0 0.0 PT 14.7 INR 1.1 APTT 33.1 Sodium 136 L 137 Potassium 3.3 L 3.5 Chloride 108 H 109 H Carbon Dioxide 22 22 Anion Gap 6 6 BUN 19 18 Creatinine 0.57 L 0.59 L Estim Creat Clear Calc 84 82 Estimated GFR > 60 > 60 Glucose 97 99 Lactic Acid 1.4 Calcium 8.8 8.1 L Magnesium 2.0 2.1 Total Bilirubin 0.7 AST 64 H ALT 58 H Alkaline Phosphatase 122 Total Creatine Kinase 875 H 689 H Total Protein 6.5 Albumin 3.8 Lipase 73 Procalcitonin 0.1 Urine Color Yellow Urine Appearance Clear Urine pH 6.0 Ur Specific [place] 1.023 Urine Protein Trace Urine Glucose (UA) Negative Urine Ketones Trace H Ur Blood (Man) Negative Urine Nitrate Negative Urine Bilirubin Negative Urine Urobilinogen 1.0 Add Ur Microanalysis Reviewed Leukocyte Esterase Rfl 2+ H Urine RBC 3-5 H Urine WBC 21-50 H Ur Squamous Epith Cells None seen Urine Bacteria None seen Urine Casts 0-2 Blood Type O Positive Antibody Screen Negative
--- NOTE | 2025-07-12 10:05 | PM.CNOR ---
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 He was trying to fold a chair when he lost his balance and fell on to his Right Hip. He was helped to his car by bystanders, driven home to [facility] by and daughter. They were not able to get him from the car into his home. They then called EMS to bring him to [place] ED. I was informed of this patients hip fracture at 3am this morning. He reports no other injuries. He ambulates without a cane or a walker. His daughter and , Keke were present during the interview. They tell me that he was diagnosed with IBM about 3 yrs ago, but symptoms really started about 5 yrs ago. Initial symptoms were weakness primarily, lower extremity. He ambulates with a quadriceps-avoidance gait. He was advised to use a walker. He opted to walk without a walker. I recommend a Right Partial Hip Replacement. Risks, benefits, alternatives and complications discussed with patient and his Keke and daughter. They agree to proceed with surgery. Risks include but are not limited to: infections, nerve injury, bleeding, dislocation, DVT. Option for non-surgical treatment will result in bedrest for greater than 4 wks with high risk of DVT, decubitus ulcers, pneumonia. 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 He was trying to fold a chair when he lost his balance and fell on to his Right Hip. He was helped to his car by bystanders, driven home to [facility] by and daughter. They were not able to get him from the car into his home. They then called EMS to bring him to [place] ED. I was informed of this patients hip fracture at 3am this morning. He reports no other injuries. He ambulates without a cane or a walker. His daughter and , Keke were present during the interview. They tell me that he was diagnosed with IBM about 3 yrs ago, but symptoms really started about 5 yrs ago. Initial symptoms were weakness primarily, lower extremity. He ambulates with a quadriceps-avoidance gait. He was advised to use a walker. He opted to walk without a walker. [facility] Past Medical History Medical History Sprain of left foot Left ankle sprain Inclusion body myositis Hypertension Lumbar spondylosis Surgical History Surgical History (Reviewed 06/17/25 @ 12: by Gareth Wilde MD) H/O shoulder surgery waiting on records H/O knee surgery 2016 right TKA Family History Family History Other Cancer Hypertension Social History Social History (Reviewed 06/17/25 @ 12: by Gareth Wilde MD) Smoking status: Former smoker Tobacco type: cigars Alcohol intake: current Drinks per week: 2 Alcohol use details: occasional Substance use: never Lack of Transportation: No Lack of Food: Never True Current Housing: I Have Housing Concerned About Future Housing: No Difficulty Paying Gas/Electric Bills: No Difficulty Paying for Meds: No Currently Unemployed: No Education: Master's Degree or Higher Difficulty w/ Childcare or Family Care: No Living arrangements: with family Additional living arrangements comments: spouse, Keke Occupation/Education: retired Gender identity (if verbalized by the patient): Male Spiritual care concerns: No Meds Home Medications and Allergies Home Medications ?Medication ?Instructions ?Recorded ?Confirmed ?Type tamsulosin 0.4 mg capsule 0.8 mg PO HS 08/03/20 07/12/25 History sertraline 50 mg tablet 50 mg PO DAILY 10/30/22 07/12/25 History esomeprazole magnesium 40 mg 40 mg PO HS 07/10/24 07/12/25 History capsule,delayed release levothyroxine 50 mcg tablet 50 mcg PO DAILY@0630 07/10/24 07/12/25 History famotidine 40 mg tablet 40 mg PO DAILY 10/04/24 07/12/25 History finasteride 5 mg tablet 5 mg PO HS 10/04/24 07/12/25 History donepezil 23 mg tablet 23 mg PO DAILY 07/12/25 07/12/25 History doxycycline hyclate 100 mg capsule 100 mg PO BID 07/12/25 07/12/25 History Allergies Allergy/AdvReac Type Severity Reaction Status Date / Time No Known Allergies Allergy Verified 07/12/25 04:15 Vital Signs Vital Signs - 24 hr 07/11/25 21:14 07/12/25 00:05 07/12/25 03:41 Temperature 36.4 C 36.8 C Pulse Rate 77 82 78 Respiratory Rate 20 18 18 Blood Pressure 168/95 H 172/98 H 168/88 H Pulse Oximetry 99 98 99 Oxygen Delivery Room Air 07/12/25 04:31 07/12/25 06:00 Temperature 36.3 C L Pulse Rate 78 80 Respiratory Rate 18 16 Blood Pressure 123/71 Pulse Oximetry 99 99 Oxygen Delivery Room Air Exam Narrative: Right lower extremity is shortened and externally rotated. No swelling tenderness or deformity of bilateral knees, ankles, feet, shoulders, elbows, wrist and hands. (+) DF at feet bilaterally. Quad weakness Left Side (right side not evaluated) Const: General: cooperative, healthy appearing, alert and awake Nutritional Appearance: average body habitus Orientation/consciousness: oriented to person and oriented to place Results Labs 07/12/25 05:02 07/12/25 05:02 Labs: Abnormal lab results 07/12/25 07/12/25 Range/Units 00:05 05:02 WBC 17.3 H 13.5 H (4.5-10.0) K/mm3 Immature Gran % (Auto) 0.7 H (0-0.5) % Lymph % (Auto) 14.8 L 13.3 L (18.3-44.2) % [place] % (Auto) 9.4 H 11.2 H (2.6-8.5) % [place] # (Auto) 1.6 H 1.5 H (0.1-0.6) K/mm3 Abs Immat Gran (auto) 0.12 H 0.07 H (0.00-0.031) K/mm3 Absolute Neuts (auto) 12.6 H 9.8 H (1.3-6.7) K/mm3 Sodium 136 L (137-145) mmol/L Potassium 3.3 L (3.4-5.0) mmol/L Chloride 108 H 109 H (98-107) mmol/L Creatinine 0.57 L 0.59 L (0.7-1.3) mg/dL Calcium 8.1 L (8.4-10.2) mg/dL AST 64 H (17-59) U/L ALT 58 H (6-50) U/L Total Creatine Kinase 875 H 689 H (55-170) U/L Urine Ketones Trace H (Negative) mg/dL Leukocyte Esterase Rfl 2+ H (Negative) SAMIR/UL Urine RBC 3-5 H (0-2) /hpf Urine WBC 21-50 H (0-3) /hpf H & H 07/12/25 07/12/25 Range/Units 00:05 05:02 Hgb 16.1 14.9 (14.0-18.0) g/dL Hct 47.0 44.5 (42.0-52.0) % Coagulation 07/12/25 Range/Units 00:05 INR 1.1 All other labs normal.
--- NOTE | 2025-07-12 10:12 | WPDANESEPPF ---
Anes - Initial Pre Proc Eval Procedure: Operation Date: 07/12/25 10:00 Proposed Procedures p Right Bipolar Hip Replacement(Right) - Uri Peter MD Date/Time: 07/12/25 10:12 Surgeon: Ariana Webb MD Pre Op Diagnosis: Fight femoral neck fracture Patient Data Age: 80 Gender: M Height: 1.7 m Weight: 73.8 kg Last Vital Signs Temp 36.3 C L 07/12/25 06:00 Pulse 80 07/12/25 06:00 Resp 16 07/12/25 06:00 BP 123/71 07/12/25 06:00 Pulse Ox 99 07/12/25 06:00 O2 Del Method Room Air 07/12/25 04:31 Allergies Allergy/AdvReac Type Severity Reaction Status Date / Time No Known Allergies Allergy Verified 07/12/25 04:15 Home Medications ?Medication ?Instructions ?Recorded ?Confirmed ?Type tamsulosin 0.4 mg capsule 0.8 mg PO HS 08/03/20 07/12/25 History sertraline 50 mg tablet 50 mg PO DAILY 10/30/22 07/12/25 History esomeprazole magnesium 40 mg 40 mg PO HS 07/10/24 07/12/25 History capsule,delayed release levothyroxine 50 mcg tablet 50 mcg PO DAILY@0630 07/10/24 07/12/25 History famotidine 40 mg tablet 40 mg PO DAILY 10/04/24 07/12/25 History finasteride 5 mg tablet 5 mg PO HS 10/04/24 07/12/25 History donepezil 23 mg tablet 23 mg PO DAILY 07/12/25 07/12/25 History doxycycline hyclate 100 mg capsule 100 mg PO BID 07/12/25 07/12/25 History Laboratory Tests 07/12/25 07/12/25 07/12/25 00:05 01:42 05:02 WBC 17.3 H K/mm3 13.5 H K/mm3 (4.5-10.0) (4.5-10.0) RBC 5.64 M/mm3 5.24 M/mm3 (4.6-6.20) (4.6-6.20) Hgb 16.1 g/dL 14.9 g/dL (14.0-18.0) (14.0-18.0) Hct 47.0 % 44.5 % (42.0-52.0) (42.0-52.0) MCV 83.3 fl 84.9 fl (80-100) (80-100) MCH 28.5 pg 28.4 pg (26-34) (26-34) MCHC 34.3 g/dl 33.5 g/dl (32-36) (32-36) RDW 13.8 % 13.8 % (11.5-14.5) (11.5-14.5) Plt Count 339 k/mm3 316 k/mm3 (150-375) (150-375) MPV 8.6 fl 8.8 fl (7.4-10.4) (7.4-10.4) Immature Gran % (Auto) 0.7 H % 0.5 % (0-0.5) (0-0.5) Neut % (Auto) 72.8 % 72.7 % (45.5-73.1) (45.5-73.1) Lymph % (Auto) 14.8 L % 13.3 L % (18.3-44.2) (18.3-44.2) [place] % (Auto) 9.4 H % 11.2 H % (2.6-8.5) (2.6-8.5) Eos % (Auto) 1.7 % 1.6 % (0-4.4) (0-4.4) Baso % (Auto) 0.6 % 0.7 % (0.2-1.2) (0.2-1.2) Lymph # (Auto) 2.56 K/mm3 1.79 K/mm3 (0.9-3.2) (0.9-3.2) [place] # (Auto) 1.6 H K/mm3 1.5 H K/mm3 (0.1-0.6) (0.1-0.6) Eos # (Auto) 0.3 K/mm3 0.2 K/mm3 (0-0.3) (0-0.3) Baso # (Auto) 0.1 K/mm3 0.1 K/mm3 (0.0-0.1) (0.0-0.1) Abs Immat Gran (auto) 0.12 H K/mm3 0.07 H K/mm3 (0.00-0.031) (0.00-0.031) Absolute Neuts (auto) 12.6 H K/mm3 9.8 H K/mm3 (1.3-6.7) (1.3-6.7) Absolute Nucleated RBC 0.000 K/mm3 0.000 K/mm3 (0.0-0.012) (0.0-0.012) Nucleated RBC % 0.0 % 0.0 % (0.0-0.2) (0.0-0.2) PT 14.7 Seconds (11.1-14.7) INR 1.1 APTT 33.1 Seconds (22.3-36.8) Sodium 136 L mmol/L 137 mmol/L (137-145) (137-145) Potassium 3.3 L mmol/L 3.5 mmol/L (3.4-5.0) (3.4-5.0) Chloride 108 H mmol/L 109 H mmol/L (98-107) (98-107) Carbon Dioxide 22 mmol/L 22 mmol/L (22-30) (22-30) Anion Gap 6 mmol/L 6 mmol/L (4-12) (4-12) BUN 19 mg/dL 18 mg/dL (9-20) (9-20) Creatinine 0.57 L mg/dL 0.59 L mg/dL (0.7-1.3) (0.7-1.3) Estim Creat Clear Calc 84 ml/min 82 ml/min Estimated GFR > 60 > 60 (59 - ) (59 - ) Glucose 97 mg/dL 99 mg/dL (65-110) (65-110) Lactic Acid 1.4 mmol/L (0.7-2.0) Calcium 8.8 mg/dL 8.1 L mg/dL (8.4-10.2) (8.4-10.2) Magnesium 2.0 mg/dL 2.1 mg/dL (1.6-2.3) (1.6-2.3) Total Bilirubin 0.7 mg/dL (0.2-1.3) AST 64 H U/L (17-59) ALT 58 H U/L (6-50) Alkaline Phosphatase 122 U/L (38-126) Total Creatine Kinase 875 H U/L 689 H U/L (55-170) (55-170) Total Protein 6.5 g/dL (6.3-8.2) Albumin 3.8 g/dL (3.5-5.1) Lipase 73 U/L (23-300) Procalcitonin 0.1 ng/mL Urine Color Yellow (Yellow) Urine Appearance Clear (Clear) Urine pH 6.0 (5.0-9.0) Ur Specific [place] 1.023 (1.001-1.035) Urine Protein Trace mg/dL (Negative) Urine Glucose (UA) Negative mg/dL (Negative) Urine Ketones Trace H mg/dL (Negative) Ur Blood (Man) Negative (Negative) Urine Nitrate Negative (Negative) Urine Bilirubin Negative (Negative) Urine Urobilinogen 1.0 mg/dL (<2.0) Add Ur Microanalysis Reviewed Leukocyte Esterase Rfl 2+ H SAMIR/UL (Negative) Urine RBC 3-5 H /hpf (0-2) Urine WBC 21-50 H /hpf (0-3) Ur Squamous Epith Cells None seen /hpf (Few) Urine Bacteria None seen /hpf Urine Casts 0-2 Blood Type O Positive Antibody Screen Negative Patient hx anesthesia problems: none Family hx anesthesia problems: none Results Review: All pre-operative results and documents have been reviewed as part of the pre-operative evaluation. [facility] Past Medical History Medical History Sprain of left foot Left ankle sprain Inclusion body myositis Hypertension Lumbar spondylosis Surgical History Surgical History H/O shoulder surgery waiting on records H/O knee surgery 2016 right TKA Family History Family History Other Cancer Hypertension Social History Social History Smoking status: Former smoker Tobacco type: cigars Alcohol intake: current Drinks per week: 2 Alcohol use details: occasional Substance use: never Lack of Transportation: No Lack of Food: Never True Current Housing: I Have Housing Concerned About Future Housing: No Difficulty Paying Gas/Electric Bills: No Difficulty Paying for Meds: No Currently Unemployed: No Education: Master's Degree or Higher Difficulty w/ Childcare or Family Care: No Living arrangements: with family Additional living arrangements comments: spouse, Keke Occupation/Education: retired Gender identity (if verbalized by the patient): Male Spiritual care concerns: No Anes - Eval Final PreProcedure Day of Procedure 07/12/25 10:12 Patient weight: normal Heart: regular rate and rhythm Lungs: decreased breath sounds Airway: Mallampati scale class II Neurological: other (alert) Last oral intake: >/= 8 hours ASA classification: III Emergent: no Anesthetic plan: proceed Anesthesia type and monitoring: general and standard monitoring Results Review: All pre-operative results and documents have been reviewed as part of the pre-operative evaluation. Informed Consent: The patient's anesthetic plan and its attendant risks and benefits were discussed with the patient/family/POA. Questions were solicited and answers provided to the satisfaction of the patient/family/POA.
--- NOTE | 2025-07-12 10:19 | P.HPUP_ITS ---
History and Physical Update Update Date/Time: 07/12/25 10:19 History and Physical has been reviewed, including an updated exam of the patient. There are NO changes in the patient's condition. Risks, benefits, and alternatives have been discussed and questions answered. Patient agrees to proceed with procedure. 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 He was trying to fold a chair when he lost his balance and fell on to his Right Hip. He was helped to his car by bystanders, driven home to [facility] by and daughter. They were not able to get him from the car into his home. They then called EMS to bring him to [place] ED. I was informed of this patients hip fracture at 3am this morning. He reports no other injuries. He ambulates without a cane or a wa lker. His daughter and , Keke were present during the interview. They tell me that he was diagnosed with IBM about 3 yrs ago, but symptoms really started about 5 yrs ago. Initial symptoms were weakness primarily, lower extremity. He ambulates with a quadriceps-avoidance gait. He was advised to use a walker. He opted to walk without a walker. I recommend a Right Partial Hip Replacement. Risks, benefits, alternatives and complications discussed with patient and his Keke and daughter. They agree to proceed with surgery. Risks include but are not limited to: infections, nerve injury, bleeding, dislocation, DVT. Option for non-surgical treatment will result in bedrest for greater than 4 wks with high risk of DVT, decubitus ulcers, pneumonia.
[2025-07-12] MEDS: LACTATED RINGERS 1,000 ML 30 ML IV CONT ×2 (12:30)
[2025-07-12] MEDS: fentaNYL CITRATE INJ (*CRX) 100 MCG/2 ML VIAL 25 MCG IV PUSH ×3 (12:33→13:12)
--- NOTE | 2025-07-12 12:41 | W.PM.PROC2 ---
Procedure Note - Detailed Date of Procedure 07/12/25 Pre-op Diagnosis Right Femoral Neck Fracture Post-op Diagnosis Same Procedure Performed Open Treatment of Right Hip Fracture with Prosthetic Implant Surgeon Uri Peter MD Anesthesia General Indications 80 yr old male with Right hip displaced femoral neck fracture after a fall. Findings Right Hip Femoral neck fracture with displacement Description of Procedure After interviewing the patient and obtaining consent for right hip hemiarthroplasty with the patient's and daughter present during the interview, the right hip was then marked prior to the patient being taken back to the operating room. The treatment plan with regards to surgical treatment with hemiarthroplasty of the right hip was discussed with the patient and his family, they agreed to proceed. All questions were answered The patient was then taken to the operating room placed in the supine position at which time he underwent general anesthesia. He was then placed in the lateral decubitus position with the right side up. The right hip was then prepped and draped in a standard sterile fashion. Time-out was performed prior to the procedure to of the 2 verify correct patient correct site of surgery correct procedure and to verify that 2 g of Ancef were administered within 1 hour of the incision time. A lateral incision was made and a standard posterior approach was made to the hip with dissection carried down to identify the ITB band once this was identified we sharply incised proximally and distally to expose the posterior aspect of the patient's hip a Charnley retractor was then used at this point in time the sciatic nerve was easily identified and avoided during the entire procedure I then identified the piriformis tendon tagged this with suture. Then proceeded to identify the capsule and performed a t capsulotomy and tagged the 2 ends of the capsule. I then proceeded to perform my neck cut about a 1.5 cm from the lesser trochanter. I removed the femoral head and measured this to be 53 mm in diameter. I then proceeded to broach the proximal femur with the patient's upper mattaponi anteversion. I broached up to a size 6 and then trialed with a standard neck length and noted that the patient was somewhat tight on hip extension and then I trialed with a-4 neck length and noted that the patient had equal limb lengths and he was extraordinarily stable with hip flexion to 90? and internal rotation to 80?. I then proceeded to remove the trial components in place the actual components with a size 6 femoral stem and a-4 neck length with a 53 mm bipolar component. I then tested for stability and had the exact same stability profile as I did with the trial components. I then obtained hemostasis irrigated copiously and then I proceeded to repair the piriformis to the posterior aspect of the patient's hip through 2 drill holes as well as repaired the capsule through these 2 drill holes also. The sciatic nerve again was identified at the end the case and noted to be intact without any evidence of injury. I then proceeded to close the ITB band using an interrupted Ethibond suture. I then proceeded to close the skin using 2-0 Vicryl suture in the dermal layer and angeli and a Mepilex dressing was placed at the end of the case. The patient was then transferred to the recovery room in stable condition. Implants [place] aactony 2 noncemented femoral stem 127? standard offset with a-4 neck length and a 53 mm bipolar component Estimated Blood Loss 100 Urine Output 200 Drains No Packing No Pathology None sent Complications No immediate complications Condition Stable Disposition PACU
[2025-07-12] MEDS: ACETAMINOPHEN 500 MG TABLET PO (15:17)
[2025-07-12] MEDS: SODIUM CHLORIDE 0.9% IV 1,000 ML 125 ML IV CONT (16:00)
--- NOTE | 2025-07-12 16:04 | PHAR ---
Drug Name:Aricept Ingredients:??Donepezil Hydrochloride?-- 23 MG Related Documents:? DRUGDEX Evaluations -?Donepezil Color:?ReddishShape:?CircleImprint:??23Imprint Code Description:?The tablet is debossed with 23 on one side and ARICEPT on the other side.Form:?Oral Tablet
[2025-07-12] MEDS: FINASTERIDE 5 MG TABLET PO (20:43)
[2025-07-12] MEDS: ASPIRIN 81 MG ENTERIC TABLET PO (20:43)
[2025-07-12] MEDS: TAMSULOSIN HCL 0.4 MG CAPSULE 0.8 MG PO (20:44)
[2025-07-12] MEDS: HYDROcodone/acetaminophen (*CRX) 5-325 MG TABLET 1 TAB PO (20:45)
[2025-07-12] MEDS: OLANZapine ODT DISPERTAB 5 MG PO (22:29)
[2025-07-13] VITALS: BP 128/70; PULSE 94; RESP 16; TEMP 36.9; O2SAT 90
[2025-07-13 04:00] VITALS: BP 113/67; PULSE 105; RESP 16; TEMP 36.9; O2SAT 93
[2025-07-13 06:13] LABS: Hematocrit 40.3 % (42.0-52.0); Hemoglobin 12.9 g/dL (14.0-18.0); Immature Granulocyte Percent A 0.8 % (0-0.5); Lymphocytes Absolute Auto 1.60 K/mm3 (0.9-3.2); Mean Corpuscular HGB Conc 32.0 g/dl (32-36); Mean Corpuscular Hemoglobin 28.4 pg (26-34); Mean Corpuscular Volume 88.6 fl (80-100); Nucleated Red Blood Cells Absolute Auto 0.000 K/mm3 (0.0-0.012); Nucleated Red Blood Cells Perc 0.0 % (0.0-0.2); Platelet Count Result 249 k/mm3 (150-375); Red Blood Count 4.55 M/mm3 (4.6-6.20); White Blood Count 16.8 K/mm3 (4.5-10.0)
[2025-07-13] MEDS: ceFAZolin 2 GM in SODIUM CHLORIDE 0.9% IV 50 ML 100 ML IVPB (06:35)
[2025-07-13] MEDS: LEVOTHYROXINE SODIUM 50 MCG TABLET PO (06:36)
--- NOTE | 2025-07-13 06:52 | PC.NURSE ---
2900 Pt noted to be agitated, pt noted to be trying to pull out Ayon catheter and to get out of bed stating I have to go pee. Family at bedside at this time. Pt redirected at this time. This nurse educated Pt of the importance of Ayon and the importance of not tugging to prevent harm. Pt verbalized understanding but continued to tug on catheter tubing. This nurse notified [employer]ER (Zoila Callahan), new orders given for soft mitten restraints and one time dosage of Zyprexa.
--- NOTE | 2025-07-13 07:20 | PC.NURSE ---
0100 Pt removed soft restraint mittens, Pt refused to keep mittens on, order Discontinued, will continue to monitor.
--- NOTE | 2025-07-13 07:23 | PC.NURSE ---
0130 Pt noted to be sleeping comfortable at this time.
[2025-07-13 07:26] LABS: Anion Gap 3 mmol/L (4-12); Blood Urea Nitrogen 14 mg/dL (9-20); Calcium 7.7 mg/dL (8.4-10.2); Carbon Dioxide 22 mmol/L (22-30); Chloride 108 mmol/L (98-107); Estimated CRCL calculation 79 ml/min; Estimated Glomerular Filt Rate > 60; Glucose 105 mg/dL (65-110); Potassium 3.7 mmol/L (3.4-5.0); Sodium 133 mmol/L (137-145)
[2025-07-13] MEDS: HYDROcodone/acetaminophen (*CRX) 5-325 MG TABLET 1 TAB PO (08:04)
[2025-07-13] MEDS: SENNA/DOCUSATE SODIUM TABLET 2 TAB PO ×2 (08:20→16:10)
[2025-07-13] MEDS: SERTRALINE HCL 50 MG TABLET PO (08:20)
[2025-07-13] MEDS: ASPIRIN 81 MG ENTERIC TABLET PO ×2 (08:20→21:37)
[2025-07-13] MEDS: HYDROmorphone HCL INJ (*CRX) 1 MG/ML SYR IV PUSH (11:12)
--- NOTE | 2025-07-13 11:59 | PM.IMPN2 ---
Assessment and Plan Assessment and Plan (1) Closed fracture of right hip: Code(s): S72.001A - Fracture of unspecified part of neck of right femur, initial encounter for closed fracture Status: Acute Assessment and Plan: NPO. Fall precautions. Orthopedic surgery consultation. Tylenol, [place], Dilaudid p.r.n.. Continue sodium chloride maintenance fluids. Trend creatinine kinase level Replace potassium, recheck with magnesium. Follow leukocytosis, likely reactive and from hemoconcentration, check procalcitonin. 07/12- surgery today at 10 am -continue pain, nausea control 07/13 post op day 1, Right Hip Femoral neck fracture with displacement with DR Peter PT/OT IS ambulate to the chair TID with meals (2) Lumbar spondylitis: Code(s): M46.96 - Unspecified inflammatory spondylopathy, lumbar region Status: Acute (3) Hypothyroidism: Code(s): E03.9 - Hypothyroidism, unspecified Status: Acute Assessment and Plan: resume home levothyroxine (4) Dementia: Code(s): F03.90 - Unspecified dementia, unspecified severity, without behavioral disturbance, psychotic disturbance, mood disturbance, and anxiety Status: Acute Assessment and Plan: resumed home donepezil (5) BPH (benign prostatic hyperplasia): Code(s): N40.0 - Benign prostatic hyperplasia without lower urinary tract symptoms Status: Acute Assessment and Plan: finasteride Plan Patient wishes to be full code. SCDs. Subjective Date/time seen: 07/13/25 11:59 Interval history: 72-year-old male with PMH inclusion body myositis, hypertension, lumbar spondylosis, hypothyroidism, dementia, BPH, presents to [facility] via EMS on 07/11/2025 after a fall and right leg pain. The patient lives with his . The patient was trying to fold a chair and he tripped and fell and landed on his right side with severe right upper leg pain. Blood pressure elevated at 157/93, otherwise hemodynamically stable and saturating well on room air. WBC 17.3, hemoglobin 16.1, patient appears dehydrated. Potassium 3.3, mild transaminitis, and creatinine kinase 875. Urinalysis 2+ leukocyte esterase, 21-50 WBC, no bacteria. Patient denies urinary frequency, foul odor, dysuria. Hip x-ray reveals patient given Zofran, fentanyl 50 mcg. He again was in severe pain writhing in pain. Given Dilaudid 1 mg IV x1. Patient resting comfortably thereafter. Started on sodium chloride at 150 cc/hour. Ortho is consulted and pt is to go to surgery at 10 am. Pain is well controlled. 07/13 pt is seen and examined he is up in a chair, working iwth PT/OT, reports pain but just took a pain medications. Tried to have BM last night but was not able. Has miralax daily scheduled. Denies chest pain, sob. Review of Systems Review of Systems: All systems reviewed & are unremarkable except as noted in HPI and below (Subjective) Exam Const: General: comfortable and no acute distress Other: A&O x3 HENMT: Mouth: Yes moist mucous membranes Eyes: Pupils: Equal, round and reactive pupils present Neck: Neck: supple Resp: Effort & Inspection: normal respiratory effort Auscultation: clear to auscultation bilaterally Cardio: Rate: regular rate Rhythm: regular rhythm GI: Inspection: non-distended Neuro: Cranial nerves: Yes Equal, round and reactive pupils present Other: Right lower extremity motor function limited by pain. Neurovascular intact. Sensation intact all 4 extremities Extrem: General: no edema Objective Data Vital Signs Vital Signs: Vital Signs - 24 hr 07/12/25 12:30 07/12/25 12:45 07/12/25 13:00 Temperature 97.5 F L Pulse Rate 85 86 83 Respiratory Rate 16 14 14 Blood Pressure 150/97 H 150/86 H 127/95 H Pulse Oximetry 96 94 97 Oxygen Delivery Simple Face Mask Room Air Room Air Oxygen Flow Rate 8 07/12/25 13:15 07/12/25 13:30 07/12/25 13:45 Temperature 97.1 F L 96.9 F L Pulse Rate 85 90 88 Respiratory Rate 16 20 17 Blood Pressure 150/79 H 137/87 151/83 H Pulse Oximetry 96 97 98 Oxygen Delivery Room Air Room Air Oxygen Flow Rate 07/12/25 14:10 07/12/25 14:40 07/12/25 20:00 Temperature 97.1 F L 97.2 F L 97.9 F Pulse Rate 75 85 98 Respiratory Rate 19 18 20 Blood Pressure 140/77 150/79 H 149/82 H Pulse Oximetry 93 92 96 Oxygen Delivery Oxygen Flow Rate 07/12/25 20:00 07/13/25 00:00 07/13/25 04:00 Temperature 98.5 F 98.4 F Pulse Rate 94 105 H Respiratory Rate 16 16 Blood Pressure 128/70 113/67 Pulse Oximetry 90 93 Oxygen Delivery Room Air Oxygen Flow Rate 07/13/25 07:48 07/13/25 08:00 07/13/25 10:08 Temperature Pulse Rate Respiratory Rate Blood Pressure Pulse Oximetry Oxygen Delivery Room Air Room Air Room Air Oxygen Flow Rate Intake/Output Intake/Output: Intake & Output 07/10/25 07/11/25 07/12/25 07/13/25 23:59 23:59 23:59 23:59 Intake Total 1440 50 Output Total 600 475 Balance 840 -425 Meds/Results Medications: Active Medications Generic Name Dose Route Start Last Admin Trade Name Freq PRN Reason Stop Dose Admin Acetaminophen 500 mg 07/12/25 12:37 07/12/25 15:17 Acetaminophen 500 Mg Tablet PO 500 mg Q6H PRN Administration Pain Rated 1-3 Hydrocodone Bitart/Acetaminophen 1 tab 07/12/25 12:37 07/13/25 08:04 Hydrocodone/Acetaminophen (*Crx) 5-325 Mg Tablet PO 1 tab Q4H PRN Administration Pain Rated 4-6 Hydrocodone Bitart/Acetaminophen 1 tab 07/12/25 12:37 Hydrocodone/Acetaminophen (*Crx) 10-325 Mg Tablet PO Q4H PRN Pain Rated 7-10 Aspirin 81 mg 07/12/25 21:00 07/13/25 08:20 Aspirin 81 Mg Enteric Tablet PO 81 mg Q12HR CHICHO Administration Docusate Sodium 100 mg 07/13/25 09:10 Docusate Sodium 100 Mg Capsule PO Q12H PRN Constipation Fentanyl Citrate 25 mcg 07/12/25 10:14 07/12/25 13:12 Fentanyl Citrate Inj (*Crx) 100 Mcg/2 Ml Vial IV PUSH 25 mcg Q2M PRN Administration Pain Finasteride 5 mg 07/12/25 21:00 07/12/25 20:43 Finasteride 5 Mg Tablet PO 5 mg HS CHICHO Administration Hydromorphone HCl 1 mg 07/12/25 12:37 07/13/25 11:12 Hydromorphone Hcl Inj (*Crx) 1 Mg/Ml Syr IV PUSH 1 mg Q2H PRN Administration Breakthrough Pain Rated 7-10 or NPO Hydromorphone HCl 0.5 mg 07/12/25 12:37 Hydromorphone Hcl Inj (*Crx) 1 Mg/Ml Syr IV PUSH Q2H PRN Breakthrough Pain Rated 4-6 or NPO Lactated Ringer's 1,000 mls @ 30 mls/hr 07/12/25 10:15 07/12/25 13:32 Lr - Lactated Ringers Iv IV CONT Infused .Q24H CHICHO Infusion Levothyroxine Sodium 50 mcg 07/13/25 06:30 07/13/25 06:36 Levothyroxine Sodium 50 Mcg Tablet PO 50 mcg DAILY@0630 CHICHO Administration Naloxone HCl 0.1 mg 07/12/25 12:37 Naloxone Hcl 0.4 Mg/Ml Vial IV PUSH Q2M PRN Opiate Reversal (Donepezil 23 Mg 23 mg 07/13/25 09:00 07/13/25 08:21 Tablet) Home Med PO 08/12/25 08:59 23 mg DAILY CHICHO Administration Ondansetron HCl 4 mg 07/12/25 10:14 Ondansetron Inj 4 Mg/2 Ml Vial IV PUSH ONCE PRN Nausea Polyethylene Glycol 17 gm 07/13/25 09:00 07/13/25 08:20 Polyethylene Glycol 3350 17 Gm Powd.Pack PO 17 gm QAM CHICHO Administration Senna/Docusate Sodium 2 tab 07/12/25 17:00 07/13/25 08:20 Senna/Docusate Sodium Tablet PO 2 tab BID CHICHO Administration Sertraline HCl 50 mg 07/13/25 09:00 07/13/25 08:20 Sertraline Hcl 50 Mg Tablet PO 50 mg DAILY CHICHO Administration Tamsulosin HCl 0.8 mg 07/12/25 21:00 07/12/25 20:44 Tamsulosin Hcl 0.4 Mg Capsule PO 0.8 mg HS CHICHO Administration Radiology Results: ITS Impressions Chest X-Ray 07/12/25 09:10 IMPRESSION: 1. No acute cardiopulmonary findings given portable technique. Hip X-Ray 07/12/25 14:18 Impression: No acute fracture or malalignment. Pelvis X-Ray 07/12/25 15:20 Impression: No acute fracture or malalignment. Labs Labs: Laboratory Results - last 24 hr 07/13/25 05:49 WBC 16.8 H RBC 4.55 L Hgb 12.9 L Hct 40.3 L MCV 88.6 MCH 28.4 MCHC 32.0 RDW 13.9 Plt Count 249 MPV 9.1 Immature Gran % (Auto) 0.8 H Neut % (Auto) 75.1 H Lymph % (Auto) 9.5 L [place] % (Auto) 13.6 H Eos % (Auto) 0.4 Baso % (Auto) 0.6 Lymph # (Auto) 1.60 [place] # (Auto) 2.3 H Eos # (Auto) 0.1 Baso # (Auto) 0.1 Abs Immat Gran (auto) 0.14 H Absolute Neuts (auto) 12.6 H Absolute Nucleated RBC 0.000 Nucleated RBC % 0.0 Sodium 133 L Potassium 3.7 Chloride 108 H Carbon Dioxide 22 Anion Gap 3 L BUN 14 Creatinine 0.61 L Estim Creat Clear Calc 79 Estimated GFR > 60 Glucose 105 Calcium 7.7 L
[2025-07-13 12:00] VITALS: BP 131/70; PULSE 107; RESP 18; TEMP 36.6; O2SAT 93
[2025-07-13] MEDS: HYDROcodone/acetaminophen (*CRX) 10-325 MG TABLET 1 TAB PO ×2 (18:02→21:39)
[2025-07-13 20:00] VITALS: BP 123/66; PULSE 96; RESP 18; TEMP 36.7; O2SAT 95
[2025-07-13] MEDS: TAMSULOSIN HCL 0.4 MG CAPSULE 0.8 MG PO (21:37)
[2025-07-13] MEDS: FINASTERIDE 5 MG TABLET PO (21:38)
[2025-07-14 06:00] VITALS: BP 113/56; PULSE 103; RESP 18; TEMP 36.5; O2SAT 93
[2025-07-14] MEDS: LEVOTHYROXINE SODIUM 50 MCG TABLET PO (06:09)
[2025-07-14] MEDS: HYDROcodone/acetaminophen (*CRX) 10-325 MG TABLET 1 TAB PO ×3 (08:06→18:21)
[2025-07-14] MEDS: SENNA/DOCUSATE SODIUM TABLET 2 TAB PO ×2 (10:08→18:00)
[2025-07-14] MEDS: ASPIRIN 81 MG ENTERIC TABLET PO ×2 (10:08→21:37)
[2025-07-14] MEDS: SERTRALINE HCL 50 MG TABLET PO (10:08)
[2025-07-14 14:00] VITALS: BP 119/69; PULSE 111; RESP 19; TEMP 37; O2SAT 96
--- NOTE | 2025-07-14 17:37 | P.PNIM_ITS ---
Assessment and Plan Assessment and Plan (1) Closed fracture of right hip: Code(s): S72.001A - Fracture of unspecified part of neck of right femur, initial encounter for closed fracture Status: Acute Assessment and Plan: NPO. Fall precautions. Orthopedic surgery consultation. Tylenol, [place], Dilaudid p.r.n.. Continue sodium chloride maintenance fluids. Trend creatinine kinase level Replace potassium, recheck with magnesium. Follow leukocytosis, likely reactive and from hemoconcentration, check procalcitonin. 07/12- surgery today at 10 am -continue pain, nausea control 07/13 post op day 1, Right Hip Femoral neck fracture with displacement with DR Peter PT/OT IS ambulate to the chair TID with meals 07/14 anticipate discharge to swing bed at [facility] if approved continue pt/ot (2) Lumbar spondylitis: Code(s): M46.96 - Unspecified inflammatory spondylopathy, lumbar region Status: Acute (3) Hypothyroidism: Code(s): E03.9 - Hypothyroidism, unspecified Status: Acute Assessment and Plan: resume home levothyroxine (4) Dementia: Code(s): F03.90 - Unspecified dementia, unspecified severity, without behavioral disturbance, psychotic disturbance, mood disturbance, and anxiety Status: Acute Assessment and Plan: resumed home donepezil (5) BPH (benign prostatic hyperplasia): Code(s): N40.0 - Benign prostatic hyperplasia without lower urinary tract symptoms Status: Acute Assessment and Plan: finasteride Plan Patient wishes to be full code. SCDs. Medical Record Review I have reviewed the following patient records and this information was taken into consideration when formulating the assessment and plan.: previous labs Time Spent With Patient Time with patient: 25 - 35 minutes Subjective Date/time seen: 07/14/25 17:37 Interval history: 72-year-old male with PMH inclusion body myositis, hypertension, lumbar spondylosis, hypothyroidism, dementia, BPH, presents to [facility] via EMS on 07/11/2025 after a fall and right leg pain. The patient lives with his . The patient was trying to fold a chair and he tripped and fell and landed on his right side with severe right upper leg pain. Blood pressure elevated at 157/93, otherwise hemodynamically stable and saturating well on room air. WBC 17.3, hemoglobin 16.1, patient appears dehydrated. Potassium 3.3, mild transaminitis, and creatinine kinase 875. Urinalysis 2+ leukocyte esterase, 21- 50 WBC, no bacteria. Patient denies urinary frequency, foul odor, dysuria. Hip x-ray reveals patient given Zofran, fentanyl 50 mcg. He again was in severe pain writhing in pain. Given Dilaudid 1 mg IV x1. Patient resting comfortably thereafter. Started on sodium chloride at 150 cc/hour. Ortho is consulted and pt is to go to surgery at 10 am. Pain is well controlled. 07/13 pt is seen and examined he is up in a chair, working iwth PT/OT, reports pain but just took a pain medications. Tried to have BM last night but was not able. Has miralax daily scheduled. Denies chest pain, sob. 07/14 pt is doing better today, still no bm but passing gas. Worked with PT/OT and did well. Review of Systems Review of Systems: All systems reviewed & are unremarkable except as noted in HPI and below (Subjective) Exam Const: General: comfortable and no acute distress Other: A&O x3 HENMT: Mouth: Yes moist mucous membranes Eyes: Pupils: Equal, round and reactive pupils present Neck: Neck: supple Resp: Effort & Inspection: normal respiratory effort Auscultation: clear to auscultation bilaterally Cardio: Rate: regular rate Rhythm: regular rhythm GI: Inspection: non-distended Neuro: Cranial nerves: Yes Equal, round and reactive pupils present Other: Right lower extremity motor function limited by pain. Neurovascular intact. Sensation intact all 4 extremities Extrem: General: no edema Objective Data Vital Signs Vital Signs: Vital Signs - 24 hr 07/13/25 20:00 07/13/25 20:00 07/14/25 06:00 Temperature 98.0 F 97.7 F Pulse Rate 96 103 H Respiratory Rate 18 18 Blood Pressure 123/66 113/56 L Pulse Oximetry 95 93 Oxygen Delivery Room Air 07/14/25 14:00 Temperature 98.6 F Pulse Rate 111 H Respiratory Rate 19 Blood Pressure 119/69 Pulse Oximetry 96 Oxygen Delivery Intake/Output Intake/Output: Intake & Output 07/11/25 07/12/25 07/13/25 07/14/25 23:59 23:59 23:59 23:59 Intake Total 1440 770 570 Output Total 600 595 Balance 840 175 570 Meds/Results Medications: Active Medications Generic Name Dose Route Start Last Admin Trade Name Freq PRN Reason Stop Dose Admin Acetaminophen 500 mg 07/12/25 12:37 07/12/25 15:17 Acetaminophen 500 Mg Tablet PO 500 mg Q6H PRN Administration Pain Rated 1-3 Hydrocodone Bitart/Acetaminophen 1 tab 07/12/25 12:37 07/13/25 08:04 Hydrocodone/Acetaminophen (*Crx) 5-325 Mg Tablet PO 1 tab Q4H PRN Administration Pain Rated 4-6 Hydrocodone Bitart/Acetaminophen 1 tab 07/12/25 12:37 07/14/25 14:01 Hydrocodone/Acetaminophen (*Crx) 10-325 Mg Tablet PO 1 tab Q4H PRN Administration Pain Rated 7-10 Aspirin 81 mg 07/12/25 21:00 07/14/25 10:08 Aspirin 81 Mg Enteric Tablet PO 81 mg Q12HR CHICHO Administration Docusate Sodium 100 mg 07/13/25 09:10 Docusate Sodium 100 Mg Capsule PO Q12H PRN Constipation Finasteride 5 mg 07/12/25 21:00 07/13/25 21:38 Finasteride 5 Mg Tablet PO 5 mg HS CHICHO Administration Hydromorphone HCl 1 mg 07/12/25 12:37 07/13/25 11:12 Hydromorphone Hcl Inj (*Crx) 1 Mg/Ml Syr IV PUSH 1 mg Q2H PRN Administration Breakthrough Pain Rated 7-10 or NPO Hydromorphone HCl 0.5 mg 07/12/25 12:37 Hydromorphone Hcl Inj (*Crx) 1 Mg/Ml Syr IV PUSH Q2H PRN Breakthrough Pain Rated 4-6 or NPO Levothyroxine Sodium 50 mcg 07/13/25 06:30 07/14/25 06:09 Levothyroxine Sodium 50 Mcg Tablet PO 50 mcg DAILY@0630 CHICHO Administration Naloxone HCl 0.1 mg 07/12/25 12:37 Naloxone Hcl 0.4 Mg/Ml Vial IV PUSH Q2M PRN Opiate Reversal (Donepezil 23 Mg 23 mg 07/13/25 09:00 07/14/25 10:14 Tablet) Home Med PO 08/12/25 08:59 Not Given DAILY CHICHO Polyethylene Glycol 17 gm 07/13/25 09:00 07/14/25 10:08 Polyethylene Glycol 3350 17 Gm Powd.Pack PO 17 gm QAM CHICHO Administration Senna/Docusate Sodium 2 tab 07/12/25 17:00 07/14/25 10:08 Senna/Docusate Sodium Tablet PO 2 tab BID CHICHO Administration Sertraline HCl 50 mg 07/13/25 09:00 07/14/25 10:08 Sertraline Hcl 50 Mg Tablet PO 50 mg DAILY CHICHO Administration Tamsulosin HCl 0.8 mg 07/12/25 21:00 07/13/25 21:37 Tamsulosin Hcl 0.4 Mg Capsule PO 0.8 mg HS CHICHO Administration Radiology Results: ITS Impressions Chest X-Ray 07/12/25 09:10 IMPRESSION: 1. No acute cardiopulmonary findings given portable technique. Hip X-Ray 07/12/25 14:18 Impression: No acute fracture or malalignment. Pelvis X-Ray 07/12/25 15:20 Impression: No acute fracture or malalignment.
[2025-07-14] MEDS: BISACODYL 10 MG SUPPOSITORY RECTAL (18:07)
[2025-07-14] MEDS: TAMSULOSIN HCL 0.4 MG CAPSULE 0.8 MG PO (21:36)
[2025-07-14] MEDS: HYDROcodone/acetaminophen (*CRX) 5-325 MG TABLET 1 TAB PO (21:36)
[2025-07-14] MEDS: FINASTERIDE 5 MG TABLET PO (21:37)
[2025-07-14 22:00] VITALS: BP 134/65; PULSE 115; RESP 16; TEMP 37.6; O2SAT 93
--- NOTE | 2025-07-15 05:44 | PM.PNORT ---
Progress Note: A&P Assessment and Plan (1) Status post-operative repair of closed fracture of right hip: Code(s): Z98.890 - Other specified postprocedural states; Z87.81 - Personal history of (healed) traumatic fracture Status: Acute Assessment and Plan: The patient is post-op from his right hip hemiarthroplasty doing very well. His main challenge is going to be contending with his inclusion body myositis which has the resultant quadriceps weakness. I would advise the patient and his family that he should always be using a walker. Prior to his injury he was attempting to ambulate with a quadriceps gait in which he locked out his knee to prevent himself from falling. He will definitely need to use a walker indefinitely to avoid increased probability of hip fractures in the near future. You will work with physical therapy on a regular basis for at least 4-5 weeks. He will participate in rehab and I'll see him in my office for post-op evaluation two weeks from the date of his surgery Subjective Subjective Date/Time Seen: 07/13/25 6:30pm Post Op day: 1 (Right Hip Kalpesh) Exam Narrative: The patient was awake and alert, resting comfortably in bed. Right hip is bandaged and dry. Limb lengths are equal Objective Data Vital Signs Vital Signs: Vital Signs - 24 hr 07/14/25 06:00 07/14/25 14:00 07/14/25 20:00 Temperature 36.5 C 37.0 C Pulse Rate 103 H 111 H Respiratory Rate 18 19 Blood Pressure 113/56 L 119/69 Pulse Oximetry 93 96 Oxygen Delivery Room Air 07/14/25 22:00 Temperature 37.6 C Pulse Rate 115 H Respiratory Rate 16 Blood Pressure 134/65 Pulse Oximetry 93 Oxygen Delivery Intake/Output Intake/Output: Intake & Output 07/12/25 07/13/25 07/14/25 07/15/25 23:59 23:59 23:59 23:59 Intake Total 1440 770 750 Output Total 600 595 100 Balance 840 175 750 -100 Meds/Results Medications: Active Medications Generic Name Dose Route Start Last Admin Trade Name Freq PRN Reason Stop Dose Admin Acetaminophen 500 mg 07/12/25 12:37 07/12/25 15:17 Acetaminophen 500 Mg Tablet PO 500 mg Q6H PRN Administration Pain Rated 1-3 Hydrocodone Bitart/Acetaminophen 1 tab 07/12/25 12:37 07/14/25 21:36 Hydrocodone/Acetaminophen (*Crx) 5-325 Mg Tablet PO 1 tab Q4H PRN Administration Pain Rated 4-6 Hydrocodone Bitart/Acetaminophen 1 tab 07/12/25 12:37 07/14/25 18:21 Hydrocodone/Acetaminophen (*Crx) 10-325 Mg Tablet PO 1 tab Q4H PRN Administration Pain Rated 7-10 Aspirin 81 mg 07/12/25 21:00 07/14/25 21:37 Aspirin 81 Mg Enteric Tablet PO 81 mg Q12HR CHICHO Administration Docusate Sodium 100 mg 07/13/25 09:10 Docusate Sodium 100 Mg Capsule PO Q12H PRN Constipation Finasteride 5 mg 07/12/25 21:00 07/14/25 21:37 Finasteride 5 Mg Tablet PO 5 mg HS CHICHO Administration Hydromorphone HCl 1 mg 07/12/25 12:37 07/13/25 11:12 Hydromorphone Hcl Inj (*Crx) 1 Mg/Ml Syr IV PUSH 1 mg Q2H PRN Administration Breakthrough Pain Rated 7-10 or NPO Hydromorphone HCl 0.5 mg 07/12/25 12:37 Hydromorphone Hcl Inj (*Crx) 1 Mg/Ml Syr IV PUSH Q2H PRN Breakthrough Pain Rated 4-6 or NPO Levothyroxine Sodium 50 mcg 07/13/25 06:30 07/14/25 06:09 Levothyroxine Sodium 50 Mcg Tablet PO 50 mcg DAILY@0630 CHICHO Administration Naloxone HCl 0.1 mg 07/12/25 12:37 Naloxone Hcl 0.4 Mg/Ml Vial IV PUSH Q2M PRN Opiate Reversal (Donepezil 23 Mg 23 mg 07/13/25 09:00 07/14/25 10:14 Tablet) Home Med PO 08/12/25 08:59 Not Given DAILY CHICHO Polyethylene Glycol 17 gm 07/13/25 09:00 07/14/25 10:08 Polyethylene Glycol 3350 17 Gm Powd.Pack PO 17 gm QAM CHIC[facility] Administration Senna/Docusate Sodium 2 tab 07/12/25 17:00 07/14/25 18:00 Senna/Docusate Sodium Tablet PO 2 tab BID CHICHO Administration Sertraline HCl 50 mg 07/13/25 09:00 07/14/25 10:08 Sertraline Hcl 50 Mg Tablet PO 50 mg DAILY CHIC[facility] Administration Tamsulosin HCl 0.8 mg 07/12/25 21:00 07/14/25 21:36 Tamsulosin Hcl 0.4 Mg Capsule PO 0.8 mg HS CHICHO Administration Radiology Results: ITS Impressions Chest X-Ray 07/12/25 09:10 IMPRESSION: 1. No acute cardiopulmonary findings given portable technique. Hip X-Ray 07/12/25 14:18 Impression: No acute fracture or malalignment. Pelvis X-Ray 07/12/25 15:20 Impression: No acute fracture or malalignment.
[2025-07-15 06:00] VITALS: BP 139/70; PULSE 107; RESP 14; TEMP 37.1; O2SAT 96
[2025-07-15] MEDS: LEVOTHYROXINE SODIUM 50 MCG TABLET PO (06:23)
[2025-07-15] MEDS: SERTRALINE HCL 50 MG TABLET PO (08:36)
[2025-07-15] MEDS: ACETAMINOPHEN 500 MG TABLET PO (08:36)
[2025-07-15] MEDS: SENNA/DOCUSATE SODIUM TABLET 2 TAB PO (08:37)
[2025-07-15] MEDS: ASPIRIN 81 MG ENTERIC TABLET PO (08:37)
--- NOTE | 2025-07-15 12:44 | P.DS_ITS ---
DS: Admitting Diagnosis Discharge Date 07/15/2025 Admitting Diagnosis Fall, R hip fx DS: Discharge Diagnosis Discharge Diagnosis (1) Closed fracture of right hip: Code(s): S72.001A - Fracture of unspecified part of neck of right femur, initial encounter for closed fracture Status: Acute Assessment and Plan: NPO. Fall precautions. Orthopedic surgery consultation. Tylenol, Mcgrady, Dilaudid p.r.n.. Continue sodium chloride maintenance fluids. Trend creatinine kinase level Replace potassium, recheck with magnesium. Follow leukocytosis, likely reactive and from hemoconcentration, check procalcitonin. 07/12- surgery today at 10 am -continue pain, nausea control 07/13 post op day 1, Right Hip Femoral neck fracture with displacement with DR Peter PT/OT IS ambulate to the chair TID with meals 07/14 anticipate discharge to swing bed at [place] if approved continue pt/ot 07/15: Pt reports pain continues to get better. Continue to work with PT/OT, discharged to [place] swing bed for therapy today. (2) Hypothyroidism: Code(s): E03.9 - Hypothyroidism, unspecified Status: Acute Assessment and Plan: resume home levothyroxine (3) Dementia: Code(s): F03.90 - Unspecified dementia, unspecified severity, without behavioral disturbance, psychotic disturbance, mood disturbance, and anxiety Status: Acute Assessment and Plan: resumed home donepezil Per nursing, pt had his first episode of sundowning last night while family was present, pt does not remember the event at all, no meds needed during episode. (4) BPH (benign prostatic hyperplasia): Code(s): N40.0 - Benign prostatic hyperplasia without lower urinary tract symptoms Status: Acute Assessment and Plan: finasteride Plan Pt to be discharged to [facility] [place] for inpt rehab s/p R hip fx repair DS: Summary Hospital Course Reason for hospitalization: Fall, R hip fx Hospital Course: The patient is a 80-year-old male with a history of inclusion body myositis, hypertension, lumbar spondylosis, hypothyroidism, dementia, and BPH who presented to the emergency department after sustaining a fall resulting in severe right hip pain. He was initially evaluated in the ED, where imaging confirmed a displaced right femoral neck fracture. Laboratory studies were notable for leukocytosis, mild transaminitis, hypokalemia, and elevated creatine kinase, likely reflecting acute injury and mild dehydration. He was made NPO, started on IV fluids, and provided with multimodal analgesia for pain control. Orthopedic surgery was consulted, and after discussion with the patient and family regarding risks, benefits, and alternatives, he underwent right hip hemiarthroplasty on hospital day 1. Postoperatively, the patient was monitored closely for complications. He remained hemodynamically stable, with no evidence of infection or acute delirium, though he did experience one episode of sundowning that resolved without medication. Pain was managed with a combination of acetaminophen, hydrocodone/acetaminophen, and hydromorphone as needed, with gradual improvement in comfort. Early mobilization was prioritized, and he participated in physical and occupational therapy, ambulating to the chair with assistance and working on transfers and basic mobility. His recovery was complicated by underlying inclusion body myositis, which contributed to persistent quadriceps weakness and increased fall risk; he was counseled on the need for indefinite walker use to prevent future injuries. Throughout his stay, the patient?s electrolytes and creatine kinase were trended and corrected as needed. His home medications were resumed, including levothyroxine, donepezil, sertraline, tamsulosin, finasteride, famotidine, and esomeprazole. Aspirin was initiated for DVT prophylaxis. He tolerated a regular diet and maintained stable vital signs. By post-op day 3, he was progressing toward his baseline functional status, with improving pain and increased participation in therapy. Discharge planning focused on continued rehabilitation, and arrangements were made for transfer to an inpatient rehab facility ([facility]) for ongoing physical and occupational therapy. He was discharged in stable condition with instructions for fall prevention, wound care, and follow-up with orthopedics and his primary care provider. Status at Discharge Overall status at discharge: patient is progressing back to baseline Time Spent with Patient Time attestation: Total time spent providing and/or coordinating discharge services: Time spent: Greater than 30 minutes Exam Const: General: comfortable and no acute distress Other: A&O x3 HENMT: Mouth: Yes moist mucous membranes Eyes: Pupils: Equal, round and reactive pupils present Neck: Neck: supple Resp: Effort & Inspection: normal respiratory effort Auscultation: clear to auscultation bilaterally Cardio: Rate: regular rate Rhythm: regular rhythm GI: Inspection: non-distended Skin: Other: Post op dressing to R lateral posterior hip Neuro: Cranial nerves: Yes Equal, round and reactive pupils present Other: Right lower extremity motor function limited by pain. Neurovascular intact. Sensation intact all 4 extremities Extrem: General: no edema Psych: Mental Status: mental status grossly normal Affect: normal affect DS: Data Data Completed and Pending Completed studies during hospitalization: Labs. urine, imaging Discharge Plan Discharge Attending physician on discharge: Praveen Nuñez Consulting providers: Uri Peter; France Payne Discharging Clinician: France Payne Anticipated Discharge Date/Time: 07/15/25 14:00 Patient Disposition: Inpatient Rehab Facility Activity: as tolerated Diet: regular Discharge Instructions: 1. The orthopedic team wants to see you in their office x2 weeks after your surgery, around 07/27/2025 to make sure everything is going ok. 2. Per ortho, you will work with physical therapy on a regular basis for at least 4-5 weeks. Continue to check your blood pressure and blood sugar at home if applicable. Keep your scheduled appts with your primary care provider and any specialist that you may see. Return to the emergency department if you develop sudden shortness of breath, chest pain, a fever of greater than 101.5, or nausea, vomiting, abd pain, or diarrhea that does not go away. Follow-up with your primary care provider within 1-2 weeks, they will want to be updated on your inpatient stay in the hospital. Thank you for choosing [facility] for your healthcare needs. Patient Instructions: Fall Prevention (GEN), Hip Fracture (GEN) Patient Language: [place] Stand Alone Forms: General Discharge Information Follow-up/Referrals: Kirt,Levar Hess PA-C [Primary Care Provider] - 2 Weeks Uri Peter MD [Physician, Orthopedics] - 07/27/25 Discharge Medications: New aspirin 81 mg Tablet,Delayed Release (Dr/Ec) 81 mg PO Q12HR Qty: 30 0RF Continued levothyroxine 50 mcg tablet 50 mcg PO DAILY@0630 esomeprazole magnesium 40 mg capsule,delayed release(DR/EC) 40 mg PO HS sertraline 50 mg tablet 50 mg PO DAILY famotidine 40 mg tablet 40 mg PO DAILY finasteride 5 mg tablet 5 mg PO HS tamsulosin 0.4 mg capsule 0.8 mg PO HS donepezil 23 mg tablet 23 mg PO DAILY doxycycline hyclate 100 mg capsule 100 mg PO BID Date of admission: 07/12/25 04:09 Primary Care Provider: KirtLevar Admitting Provider: Ariana Webb Attending physician on admission: Ariana Webb Condition: Stable Quality VTE Prophylaxis VTE prophylaxis: mechanical ordered Hospitalist MIPS Heart Failure (Exclusion) Patient has history of Heart Transplant or Left Ventricular Assistive Device?: No IF YES, STOP HERE Heart Failure (Qualifier) Patient has current or prior documentation of LVEF less than or equal to 40%, or mod/servere depressed LVSF?: No IF NO, STOP HERE
[2025-07-15 14:00] VITALS: BP 128/66; PULSE 100; RESP 16; TEMP 36.2; O2SAT 97
[2025-07-15] MEDS: HYDROcodone/acetaminophen (*CRX) 5-325 MG TABLET 1 TAB PO (16:33)
== END 2025-07-15 16:50 | disposition swing bed (61) | DRG 522 ==
LOC: ANHED 07-12 01:14 → ANH3MEDSUR 07-12 02:54
PROVIDERS: Orthopaedic Surgery; Admitting Provider General Practice; Emergency Provider Student in an Organized Health Care Education/Training Program; PCP Physician Assistant
PROC: 0SRR01A Replacement of Right Hip Joint, Femoral Surface with Metal Synthetic Substitute, Uncemented, Open Approach (ICD-10-PCS; CPT 27125; principal; 2025-07-12 10:00)
DX: S72.001A Fracture of unspecified part of neck of right femur, initial encounter for closed fracture (principal); G72.41 Inclusion body myositis [IBM]; M47.896 Other spondylosis, lumbar region; I10 Essential (primary) hypertension; E03.9 Hypothyroidism, unspecified; N40.0 Benign prostatic hyperplasia without lower urinary tract symptoms; E86.0 Dehydration; E87.6 Hypokalemia; Z96.651 Presence of right artificial knee joint; W01.0XXA Fall on same level from slipping, tripping and stumbling without subsequent striking against object, initial encounter; Z87.891 Personal history of nicotine dependence
CPT/HCPCS: 36415; 71045; 72170; 73502; 73552; 80048; 80053; 81001; 82550; 83605; 83690; 83735; 84145; 85025; 85610; 85730; 86850; 86900; 86901; 87086; 93005; 96374; 96375; 97110; 97162; 97166; 97530; 97535; 99285; J0690; A9270; C1776; G0378; J1171; J2405; J3010; J7030; J7120

== ENCOUNTER 2025-07-15 17:27 | Inpatient (IN) | payer MEDICARE, SELFPAY ==
--- NOTE | ~2025-07-15 | XR_ITS ---
Examination: XR hip RT min 2V Clinical History: Rt. hip pain/ internal rotation post surgery x6 days Comparison: 07/12/2025 Technique: 2 views right hip Findings/impression: 1. Arthroplasty intact without associated fracture or dislocation. 2. No significant change or complication noted. Reviewed, dictated and finalized at location R. ITURE FABRICATOR
[2025-07-15 17:40] VITALS: BMI 26.4
--- NOTE | 2025-07-15 17:55 | ADMGEN ---
This patient, Don Timmons, was admitted to 2nd Floor Room 208-1. Patient/family oriented to hospital policies and general routines including ID bracelet, bed and alarms, visiting hours, pain management, procedures, bathroom and other care routines, personal items, smoking policy, room service/diet, and visiting hours. Information on how to activate the Rapid Response Team has been discussed. Patient/Family are encouraged to report perceived risks to care and to ask questions if they do not understand what they are told or what they should do. Today at 1730 patient arrives to room 208 via ambulance, assisted by 2 attendants from [facility] for Swing bed.
--- NOTE | 2025-07-15 18:37 | PHAR ---
PT'S HOME MED: ARICEPT XR 23 MG VERIFIED. RN READ PILL IMPRINT TO PHARMACY AND PILL DESCRIPTION IS PRESENT ON PT'S HOME MED BOTTLE.
[2025-07-15] MEDS: HYDROcodone/acetaminophen (*CRX) 5-325 MG TABLET 1 TAB PO (20:16)
[2025-07-15] MEDS: TAMSULOSIN HCL 0.4 MG CAPSULE 0.8 MG PO (20:17)
[2025-07-15] MEDS: DOXYCYCLINE HYCLATE 100 MG TABLET PO (20:18)
[2025-07-15] MEDS: ASPIRIN 81 MG ENTERIC TABLET PO (20:18)
[2025-07-15] MEDS: PANTOPRAZOLE 40 MG TABLET PO (20:18)
[2025-07-15] MEDS: FINASTERIDE 5 MG TABLET PO (20:18)
[2025-07-15] MEDS: SENNA/DOCUSATE SODIUM TABLET 1 TAB PO (20:18)
--- OUTSIDE RECORDS SUMMARY | 2025-07-15 21:12 | XMS_ITS | Clinical Summary ---
Author Organization [facility] Address [address] [place] [address] Care Team Providers Care Media Technician Name Role Phone Alexander Powers MD Unavailable Unavailable Anabel Higgins MD Primary Care Provider [phone] Allergies No known active allergies Medications multivitamin [...] 08/24/2021 Assessment & Plan (08/31/2021 3:09 PM OVERLOCK ELASTIC ATTACHER): This is moderately improved were going to continue ice and [id number] exercises we did discuss option for physical therapy Assessment & Plan (08/24/2021 4:10 PM OVERLOCK ELASTIC ATTACHER): No signs of fx on exam will [...] 10/13/2020 Assessment & Plan (10/13/2020 11:13 AM OVERLOCK ELASTIC ATTACHER): Repeat cbc Olecranon bursitis of left elbow 04/06/2020 Assessment & Plan (08/31/2021 3:09 PM OVERLOCK ELASTIC ATTACHER): This is moderately improved will continue to [...] Neurology Assessment & Plan (07/11/2023 11:34 AM OVERLOCK ELASTIC ATTACHER): This is mild and patient's is with [...] follow Assessment & Plan (08/31/2021 3:09 PM OVERLOCK ELASTIC ATTACHER): This appears very stable will continue to follow Assessment & Plan (04/25/2021 2:14 PM CDT): Taking medications and appears very stable Assessment & Plan (10/13/2020 11:06 AM OVERLOCK ELASTIC ATTACHER): On 10 mg, feels better, will try 23 mg and f/u 3 months Assessment & Plan (04/06/2020 9:49 AM CDT): This appears very stable, CPM, will follow Mass of right testicle 05/26/2019 Assessment & Plan (05/02/2021 7:11 AM CDT): Non-tender, will get US Encounter for general adult medical examination with abnormal findings 11/28/2018 Assessment & Plan (07/11/2023 11:34 AM OVERLOCK ELASTIC ATTACHER): Healthcare maintenance updated immunizations reviewed Assessment & [...] follow Assessment & Plan (07/11/2023 11:34 AM OVERLOCK ELASTIC ATTACHER): This is well controlled with no SI HI will continue to follow Assessment & Plan (01/18/2023 3:23 PM CDT): excellend control, CPM Assessment & Plan (10/25/2022 10:14 AM CDT): Controlled, CPM Assessment & Plan (06/19/2022 2:02 PM OVERLOCK ELASTIC ATTACHER): Increased, will increase zoloft, f/u routine Assessment & Plan (04/26/2022 11:12 AM CDT): Well controlled with medications, no SI/HI Assessment & Plan (01/24/2022 8:53 AM CDT): Well controlled Assessment & Plan (10/24/2021 1:08 PM CDT): Stable, CPM Assessment & Plan (01/13/2021 11:17 AM CDT): This is in good control, continue current meds, follow-up 6 months Assessment & Plan (10/13/2020 11:06 AM OVERLOCK ELASTIC ATTACHER): Well controlled with meds Assessment & Plan [...] fall Assessment & Plan (10/13/2020 11:06 AM OVERLOCK ELASTIC ATTACHER): No falls Encounter for screening for other [...] routine Assessment & Plan (07/11/2023 11:34 AM OVERLOCK ELASTIC ATTACHER): This is currently well controlled with medications continue current meds follow- up routine Assessment & Plan (10/25/2022 10:13 AM CDT): Controlled, CPM Assessment & Plan (06/19/2022 2:02 PM OVERLOCK ELASTIC ATTACHER): CPM Assessment & Plan (04/26/2022 11:11 AM CDT): Controlled with meds Assessment & Plan (02/21/2022 10:18 AM CDT): Controlled with medications, CPM Assessment & Plan (01/24/2022 8:53 AM CDT): Controlled and CPM Assessment & Plan (08/31/2021 3:08 PM OVERLOCK ELASTIC ATTACHER): This is controlled will continue current medications [...] understanding Assessment & Plan (07/11/2023 11:34 AM OVERLOCK ELASTIC ATTACHER): Avoid spicy, fried, greasy foods Keep hydrated [...] understanding Assessment & Plan (08/31/2021 3:08 PM OVERLOCK ELASTIC ATTACHER): Images from the original note were not [...] AM CDT [facility] [address] [facility] [address] [place] [phone] Keysha Dixon MD Late onset Alzheimer's [...] on file Legal Sex Male 7:21 PM OVERLOCK ELASTIC ATTACHER Gender Identity Not on file Sexual Orientation [...] CDT) Hep C Ab NONREACT NONREACTIVE [facility] Comment: Siemens CentaurXP using VAHID (chemiluminescent immunoassay) [...] CLI Levar [facility] - GENERAL ORDuSsana DIAS Final Result [facility] [address] [phone] * COLONOSCOPY (01/02/2018) Pathologist [facility] Colonoscopy Normal Historical Provider HEALTH MAINTENANCE Final Result from Last 3 Months or Most Recently Relevant to Health Maintenance Insurance AETNA MEDICARE AETNA MEDICARE AETNA MEDICARE Care Teams Media Technician Relationship Specialty Start Date End Date Anabel Higgins MD [address] [facility] [address] [place] [address] PCP - General Internal Medicine 06/26/24 Alexander Powers MD Referring Physician Neurology 02/22/23
--- OUTSIDE RECORDS SUMMARY | 2025-07-15 21:12 | XMS_ITS | Clinical Summary ---
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 Gender Identity Not on file Sexual Orientation Not on file Last Filed Vital Signs Vital Sign Reading Time Taken Comments Blood Pressure 145/84 09/16/2020 10:50 AM GEOGRAPHY PROFESSOR Pulse 68 09/16/2020 10:50 AM GEOGRAPHY PROFESSOR Temperature 36.7 C (98.1 F) 09/16/2020 10:50 AM GEOGRAPHY PROFESSOR Respiratory Rate 18 08/30/2020 9:30 AM GEOGRAPHY PROFESSOR Oxygen Saturation - - Inhaled Oxygen Concentration - - Weight 77.1 kg (170 lb) 09/16/2020 10:50 AM GEOGRAPHY PROFESSOR Height 170.2 cm (5' 7) 09/16/2020 10:50 AM GEOGRAPHY PROFESSOR Body Mass Index 26.63 09/16/2020 10:50 AM GEOGRAPHY PROFESSOR Plan of Treatment Health Maintenance Due Date Last Done Comments DTAP/TDAP/TD VACCINES (1 - Tdap) 1966 ZOSTER VACCINE (1 of 2) 1997 PNEUMOCOCCAL VACCINE 50+ YEA RS (2 of 2 - PCV20 or PCV21) 10/12/2020 10/13/2019 RSV VACCINE (60+ or ) (1 - 1-dose 75+ series) 2022 INFLUENZA VACCINE (#1) 2025 Insurance [place] [id number] Care Teams Biodiesel Production Associate Relationship Specialty Start Date End Date Levar Moralez PA [address] [place] [id number] PCP - General Wire Bound Box Machine Operator 08/10/20
--- OUTSIDE RECORDS SUMMARY | 2025-07-15 21:12 | XMS_ITS | Encounter Summary ---
Author Organization [facility] Care Team Providers Care Climatology Professor Name Role Phone Levar Moralez Primary Care Provider [phone] Alexander Powers MD Unavailable Unavailable Anabel Higgins MD Primary Care Provider [phone] Encounter Details Date Type Department Care Team (Latest Contact Info) Description 12/10/2017 Orders Only [facility] CLINCONV ProviderSamanta MD [address] [place] [id number] Social History Tobacco Use Types Packs/Day Years Used Date Smoking Tobacco: Never Assessed Sex and Gender Information Value Date Recorded Sex Assigned at Not on file 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
[2025-07-15] MEDS: MELATONIN 5 MG TABLET PO (22:28)
[2025-07-16] VITALS: BP 151/71; PULSE 97; RESP 18; TEMP 37.4; O2SAT 96
[2025-07-16] MEDS: LEVOTHYROXINE SODIUM 50 MCG TABLET PO (06:42)
[2025-07-16 08:00] VITALS: BP 127/72; PULSE 90; RESP 18; TEMP 36.1; O2SAT 93
--- NOTE | 2025-07-16 08:33 | PHAR ---
Verified home med- Donepezil 23mg take one tab by mouth daily. Red round tablet, imprint: 23
--- NOTE | 2025-07-16 08:41 | PM.IMHP2 ---
H&P: HPI History of Present Illness Date/Time: 07/16/25 08:41 Chief Complaint: rehab admission Narrative: Patient is a 80 year old male with PMH of inclusion body myositis, HTN, lumbar spondylosis, hypothyroidism, dementia and BPH. Patient was admitted to [facility] from 07/12/25 to 07/15/2025 after a mechanical fall that resulted in a displaced right femoral neck fracture. Patient was taken to the OR on 07/12/[address] Peter for a right hip arthroplasty. Patient had an uneventful post-opertive course and pain was controlled with oral pain medications. Patient is weight bearing as tolerated to the RLE. Patient had issues with sundowning due to his history of dementia and briefly required a sitter and soft wrist restraints. Patient was discharged to [facility] as a swing bed admission for continued rehabilitation. Review of Systems Review of Systems: All systems reviewed & are unremarkable except as noted in HPI and below PMFSH Past Medical History Medical History Sprain of left foot Left ankle sprain Inclusion body myositis Hypertension Lumbar spondylosis Surgical History Surgical History H/O shoulder surgery waiting on records H/O knee surgery 2016 right TKA Family History Family History Other Cancer Hypertension Social History Social History Smoking status: Never smoker Tobacco type: cigars Second hand tobacco smoke exposure: No Alcohol intake: current Drinks per week: 2 Alcohol use details: occasional Substance use: never Substance use type: does not use Lack of Transportation: No Lack of Food: Never True Current Housing: I Have Housing Concerned About Future Housing: No Difficulty Paying Gas/Electric Bills: No Difficulty Paying for Meds: No Currently Unemployed: No Education: Bachelor's Degree Difficulty w/ Childcare or Family Care: No Living arrangements: with family Additional living arrangements comments: spouse, Keke Occupation/Education: retired Gender identity (if verbalized by the patient): Male Spiritual care concerns: No Meds Home Medications and Allergies Home Medications ?Medication ?Instructions ?Recorded ?Confirmed ?Type tamsulosin 0.4 mg capsule 0.8 mg PO HS 08/03/20 07/15/25 History sertraline 50 mg tablet 50 mg PO DAILY 10/30/22 07/15/25 History esomeprazole magnesium 40 mg 40 mg PO HS 07/10/24 07/15/25 History capsule,delayed release levothyroxine 50 mcg tablet 50 mcg PO DAILY@0630 07/10/24 07/15/25 History famotidine 40 mg tablet 40 mg PO DAILY 10/04/24 07/15/25 History finasteride 5 mg tablet 5 mg PO HS 10/04/24 07/15/25 History donepezil 23 mg tablet 23 mg PO DAILY 07/12/25 07/15/25 History doxycycline hyclate 100 mg capsule 100 mg PO BID 07/12/25 07/15/25 History aspirin 81 mg tablet,delayed 81 mg PO Q12HR #30 tabs 07/15/25 07/15/25 Rx release Allergies Allergy/AdvReac Type Severity Reaction Status Date / Time No Known Allergies Allergy Verified 07/12/25 04:15 Vital Signs Vital Signs - 24 hr 07/15/25 20:00 07/16/25 00:00 Temperature 99.4 F Pulse Rate 97 Respiratory Rate 18 Blood Pressure 151/71 H Pulse Oximetry 96 Oxygen Delivery Room Air Room Air Exam Const: General: comfortable and no acute distress HENMT: Face/Nose/Sinus: Normal nares present Mouth: Yes moist mucous membranes Eyes: General: appearance normal, both eyes and all related structures Sclera: sclerae normal Neck: Neck: supple Resp: Effort & Inspection: normal respiratory effort Auscultation: clear to auscultation bilaterally Cardio: Rate: regular rate Rhythm: regular rhythm GI: GI Palp: Yes Soft to palpation Auscultation: normal bowel sounds Skin: General skin exam: normal color and no rashes or lesions noted Other: surgical dressing to right hip C/D/I Neuro: Speech: normal speech Motor exam (neuro): 5/5 motor strength present throughout Sensory Exam: normal sensation Extrem: General: normal to inspection Psych: Affect: normal affect Other: alert and oriented x 3 but confused at times, dementia Quality VTE Prophylaxis VTE prophylaxis: pharmacologic ordered Assessment and Plan Assessment and plan (1) Closed fracture of right hip: Code(s): S72.001A - Fracture of unspecified part of neck of right femur, initial encounter for closed fracture Status: Acute Assessment and Plan: s/p right hip hemiarthroplasty on 07/[address] Peter follow up with orthopedic surgery as outpatient WBAT aspirin 81 mg BID x 30 days for DVT prophylaxis pain control admission to swing bed for continued rehab PT/OT to eval and treat (2) Hypothyroidism: Code(s): E03.9 - Hypothyroidism, unspecified Status: Acute Assessment and Plan: continue levothyroxine (3) Dementia: Code(s): F03.90 - Unspecified dementia, unspecified severity, without behavioral disturbance, psychotic disturbance, mood disturbance, and anxiety Status: Acute Assessment and Plan: patient with sundowning at night room close to nurses station, bed alarm melatonin at HS reorient frequently continue donepezil (4) Fall: Code(s): W19.XXXA - Unspecified fall, initial encounter Status: Acute Assessment and Plan: fall precautions admission to swing bed for rehabilitation PT/OT (5) BPH (benign prostatic hyperplasia): Code(s): N40.0 - Benign prostatic hyperplasia without lower urinary tract symptoms Status: Acute Assessment and Plan: continue finasteride
[2025-07-16] MEDS: FAMOTIDINE 20 MG TABLET 40 MG PO (09:22)
[2025-07-16] MEDS: ASPIRIN 81 MG ENTERIC TABLET PO ×2 (09:22→20:29)
[2025-07-16] MEDS: SERTRALINE HCL 50 MG TABLET PO (09:22)
[2025-07-16] MEDS: DOXYCYCLINE HYCLATE 100 MG TABLET PO ×2 (09:22→20:29)
[2025-07-16] MEDS: HYDROcodone/acetaminophen (*CRX) 7.5-325 MG TABLET 1 TAB PO ×2 (09:49→20:29)
[2025-07-16 16:00] VITALS: BP 132/74; PULSE 97; RESP 18; TEMP 36.7; O2SAT 97
[2025-07-16] MEDS: FINASTERIDE 5 MG TABLET PO (20:29)
[2025-07-16] MEDS: PANTOPRAZOLE 40 MG TABLET PO (20:29)
[2025-07-16] MEDS: TAMSULOSIN HCL 0.4 MG CAPSULE 0.8 MG PO (20:29)
[2025-07-16] MEDS: SENNA/DOCUSATE SODIUM TABLET 1 TAB PO (20:31)
[2025-07-16] MEDS: MELATONIN 5 MG TABLET PO (20:31)
[2025-07-17] VITALS: BP 157/76; PULSE 112; RESP 20; TEMP 37.4; O2SAT 96
[2025-07-17] MEDS: HYDROcodone/acetaminophen (*CRX) 7.5-325 MG TABLET 1 TAB PO ×3 (05:28→20:41)
[2025-07-17] MEDS: LEVOTHYROXINE SODIUM 50 MCG TABLET PO (05:29)
[2025-07-17 08:00] VITALS: BP 116/64; PULSE 86; RESP 17; TEMP 36.5; O2SAT 97
[2025-07-17] MEDS: DOXYCYCLINE HYCLATE 100 MG TABLET PO ×2 (08:34→20:41)
[2025-07-17] MEDS: SERTRALINE HCL 50 MG TABLET PO (08:34)
[2025-07-17] MEDS: ASPIRIN 81 MG ENTERIC TABLET PO ×2 (08:34→20:41)
[2025-07-17] MEDS: HYDROcodone/acetaminophen (*CRX) 5-325 MG TABLET 1 TAB PO (08:41)
[2025-07-17] MEDS: FAMOTIDINE 20 MG TABLET 40 MG PO (09:09)
[2025-07-17] MEDS: ACETAMINOPHEN 325 MG TABLET 650 MG PO (12:21)
[2025-07-17 16:00] VITALS: BP 140/60; PULSE 87; RESP 18; TEMP 36.2; O2SAT 97
--- NOTE | 2025-07-17 17:11 | PC.NURSE ---
Maria D Potter NP, notified that patient c/o itchng to his back and red raised rash observed to his upper and mid back. New orders received for medication and cream.
[2025-07-17] MEDS: hydrOXYzine HCL 12.5 MG TABLET PO (17:21)
[2025-07-17] MEDS: PANTOPRAZOLE 40 MG TABLET PO (20:40)
[2025-07-17] MEDS: HYDROCORTISONE 2.5% CREAM 30 GM TUBE 1 APPLIC TOPICAL (20:41)
[2025-07-17] MEDS: FINASTERIDE 5 MG TABLET PO (20:41)
[2025-07-17] MEDS: TAMSULOSIN HCL 0.4 MG CAPSULE 0.8 MG PO (20:41)
[2025-07-17] MEDS: MELATONIN 5 MG TABLET PO (20:45)
[2025-07-18] VITALS: BP 135/83; PULSE 107; RESP 16; TEMP 36.6; O2SAT 95
[2025-07-18] MEDS: LEVOTHYROXINE SODIUM 50 MCG TABLET PO (06:17)
[2025-07-18 08:00] VITALS: BP 119/77; PULSE 84; RESP 16; TEMP 36.4; O2SAT 95
[2025-07-18] MEDS: DOXYCYCLINE HYCLATE 100 MG TABLET PO ×2 (08:11→20:16)
[2025-07-18] MEDS: FAMOTIDINE 20 MG TABLET 40 MG PO (08:11)
[2025-07-18] MEDS: HYDROcodone/acetaminophen (*CRX) 5-325 MG TABLET 1 TAB PO ×2 (08:13→16:50)
[2025-07-18] MEDS: SERTRALINE HCL 50 MG TABLET PO (08:13)
[2025-07-18] MEDS: HYDROCORTISONE 2.5% CREAM 30 GM TUBE 1 APPLIC TOPICAL ×2 (08:15→21:59)
[2025-07-18] MEDS: ASPIRIN 81 MG ENTERIC TABLET PO ×2 (08:17→20:15)
[2025-07-18] MEDS: ACETAMINOPHEN 325 MG TABLET 650 MG PO (12:21)
[2025-07-18 16:00] VITALS: BP 124/60; PULSE 68; RESP 18; TEMP 36.7; O2SAT 98
[2025-07-18] MEDS: TAMSULOSIN HCL 0.4 MG CAPSULE 0.8 MG PO (20:15)
[2025-07-18] MEDS: FINASTERIDE 5 MG TABLET PO (20:15)
[2025-07-18] MEDS: PANTOPRAZOLE 40 MG TABLET PO (20:15)
[2025-07-18] MEDS: MELATONIN 5 MG TABLET PO (20:15)
[2025-07-18] MEDS: SENNA/DOCUSATE SODIUM TABLET 1 TAB PO (20:15)
[2025-07-18] MEDS: HYDROcodone/acetaminophen (*CRX) 7.5-325 MG TABLET 1 TAB PO (20:16)
[2025-07-18] MEDS: hydrOXYzine HCL 12.5 MG TABLET PO (20:16)
[2025-07-19] VITALS: BP 139/78; PULSE 90; RESP 19; TEMP 36.4; O2SAT 94
[2025-07-19] MEDS: HYDROcodone/acetaminophen (*CRX) 5-325 MG TABLET 1 TAB PO ×3 (04:12→17:23)
[2025-07-19] MEDS: LEVOTHYROXINE SODIUM 50 MCG TABLET PO (05:55)
[2025-07-19 08:00] VITALS: PULSE 8; TEMP 36.5
[2025-07-19] MEDS: HYDROcodone/acetaminophen (*CRX) 7.5-325 MG TABLET 1 TAB PO ×2 (08:07→20:43)
--- NOTE | 2025-07-19 08:07 | PM.IMPN2 ---
Assessment and Plan Assessment and Plan (1) Closed fracture of right hip: Code(s): S72.001A - Fracture of unspecified part of neck of right femur, initial encounter for closed fracture Status: Acute Assessment and Plan: s/p right hip hemiarthroplasty on 07/[address] Peter follow up with orthopedic surgery as outpatient WBAT aspirin 81 mg BID x 30 days for DVT prophylaxis pain control admission to swing bed for continued rehab PT/OT to eval and treat patient still with significant pain with standing and RLE is internally rotated, check right hip x-rays today patient with no bowel movement since admission, bowel regimen adjusted, monitor for bowel movement (2) Hypothyroidism: Code(s): E03.9 - Hypothyroidism, unspecified Status: Acute Assessment and Plan: continue levothyroxine (3) Dementia: Code(s): F03.90 - Unspecified dementia, unspecified severity, without behavioral disturbance, psychotic disturbance, mood disturbance, and anxiety Status: Acute Assessment and Plan: patient with sundowning at night room close to nurses station, bed alarm melatonin at HS reorient frequently continue donepezil (4) Fall: Code(s): W19.XXXA - Unspecified fall, initial encounter Status: Acute Assessment and Plan: fall precautions admission to swing bed for rehabilitation PT/OT (5) BPH (benign prostatic hyperplasia): Code(s): N40.0 - Benign prostatic hyperplasia without lower urinary tract symptoms Status: Acute Assessment and Plan: continue finasteride Medical Record Review I have reviewed the following patient records and this information was taken into consideration when formulating the assessment and plan.: previous labs, previous ER visits and previous hospitalizations Subjective Date/time seen: 07/19/25 08:07 Interval history: Patient seen for a follow up visit. Patient sitting up in recliner, in no acute distress. Patient has not had a bowel movement since admission, bowel regimen adjusted. Nursing reports patient has a significant amount of pain when standing up and his right leg is significantly internally rotated. Order x-rays of right hip to ensure no issues with recent surgery. Continue pain control and continue PT/OT. Patient denies acute complaints when I ask him, but he is a poor historian. Review of Systems Review of Systems: All systems reviewed & are unremarkable except as noted in HPI and below Exam Const: General: comfortable and no acute distress HENMT: Face/Nose/Sinus: Normal nares present Mouth: Yes moist mucous membranes Eyes: General: appearance normal, both eyes and all related structures Sclera: sclerae normal Neck: Neck: supple Resp: Effort & Inspection: normal respiratory effort Auscultation: clear to auscultation bilaterally Cardio: Rate: regular rate Rhythm: regular rhythm GI: Auscultation: normal bowel sounds Skin: General skin exam: normal color and no rashes or lesions noted Other: surgical dressing to right hip C/D/I Neuro: Speech: normal speech Motor exam (neuro): 5/5 motor strength present throughout Sensory Exam: normal sensation Extrem: General: normal to inspection Other: right leg internally rotated Psych: Affect: normal affect Other: alert and oriented x 3 but confused at times, dementia Objective Data Vital Signs Vital Signs: Vital Signs - 24 hr 07/18/25 16:00 07/19/25 00:00 Temperature 98.0 F 97.5 F L Pulse Rate 68 90 Respiratory Rate 18 19 Blood Pressure 124/60 139/78 Pulse Oximetry 98 94 Oxygen Delivery Room Air Room Air Intake/Output Intake/Output: Intake & Output 07/16/25 07/17/25 07/18/25 07/19/25 23:59 23:59 23:59 23:59 Intake Total 1560 2260 1970 690 Output Total 370 503 6163 300 Balance 860 1310 945 390 Meds/Results Medications: Active Medications Generic Name Dose Route Start Last Admin Trade Name Freq PRN Reason Stop Dose Admin Acetaminophen 650 mg 07/15/25 17:57 07/18/25 12:21 Acetaminophen 325 Mg Tablet PO 650 mg Q6H PRN Administration Mild Pain (1-3) or Fever Hydrocodone Bitart/Acetaminophen 1 tab 07/15/25 17:57 07/18/25 20:16 Hydrocodone/Acetaminophen (*Crx) 7.5-325 Mg Tablet PO 1 tab Q4H PRN Administration Pain Rated 7-10 Hydrocodone Bitart/Acetaminophen 1 tab 07/15/25 17:57 07/19/25 04:12 Hydrocodone/Acetaminophen (*Crx) 5-325 Mg Tablet PO 1 tab Q4H PRN Administration Pain Rated 4-6 Aspirin 81 mg 07/15/25 21:00 07/18/25 20:15 Aspirin 81 Mg Enteric Tablet PO 81 mg Q12HR CHICHO Administration Doxycycline Hyclate 100 mg 07/15/25 21:00 07/18/25 20:16 Doxycycline Hyclate 100 Mg Tablet PO 100 mg Q12HR CH[facility]HO Administration Famotidine 40 mg 07/16/25 09:00 07/18/25 08:11 Famotidine 20 Mg Tablet PO 40 mg DAILY CH[facility]HO Administration Finasteride 5 mg 07/15/25 21:00 07/18/25 20:15 Finasteride 5 Mg Tablet PO 5 mg HS CHICHO Administration Hydrocortisone 1 applic 07/17/25 21:00 07/18/25 21:59 Hydrocortisone 2.5% Cream 30 Gm Tube TOPICAL 1 applic Q12HR CH[facility]HO Administration Hydroxyzine HCl 12.5 mg 07/17/25 16:57 07/18/25 20:16 Hydroxyzine Hcl 12.5 Mg Tablet PO 12.5 mg Q8H PRN Administration Itching Levothyroxine Sodium 50 mcg 07/16/25 06:30 07/19/25 05:55 Levothyroxine Sodium 50 Mcg Tablet PO 50 mcg DAILY@0630 CH[facility]HO Administration Melatonin 5 mg 07/15/25 22:25 07/18/25 20:15 Melatonin 5 Mg Tablet PO 5 mg HS CHICHO Administration Home Medication ( 1 each 07/15/25 21:00 07/18/25 20:15 Donepezil Hcl 23 Mg PO 08/14/25 20:59 1 each Oral Tablet) HS CHICHO Administration Pantoprazole Sodium 40 mg 07/15/25 21:00 07/18/25 20:15 Pantoprazole 40 Mg Tablet PO 40 mg HS CHICHO Administration Polyethylene Glycol 17 gm 07/15/25 17:58 Polyethylene Glycol 3350 17 Gm Powd.Pack PO QAM PRN Constipation Senna/Docusate Sodium 1 tab 07/15/25 21:00 07/18/25 20:15 Senna/Docusate Sodium Tablet PO 1 tab HS CH[facility]HO Administration Sertraline HCl 50 mg 07/16/25 09:00 07/18/25 08:13 Sertraline Hcl 50 Mg Tablet PO 50 mg DAILY CH[facility] Administration Tamsulosin HCl 0.8 mg 07/15/25 21:00 07/18/25 20:15 Tamsulosin Hcl 0.4 Mg Capsule PO 0.8 mg HS CHICHO Administration Quality VTE Prophylaxis VTE prophylaxis: pharmacologic ordered
[2025-07-19] MEDS: HYDROCORTISONE 2.5% CREAM 30 GM TUBE 1 APPLIC TOPICAL ×2 (08:09→20:43)
[2025-07-19] MEDS: SERTRALINE HCL 50 MG TABLET PO (08:09)
[2025-07-19] MEDS: DOXYCYCLINE HYCLATE 100 MG TABLET PO ×2 (08:10→20:42)
[2025-07-19] MEDS: FAMOTIDINE 20 MG TABLET 40 MG PO (08:10)
[2025-07-19] MEDS: ASPIRIN 81 MG ENTERIC TABLET PO ×2 (08:10→20:42)
[2025-07-19] MEDS: SENNA/DOCUSATE SODIUM TABLET 2 TAB PO ×2 (13:11→20:42)
[2025-07-19 16:00] VITALS: BP 128/62; PULSE 89; RESP 16; TEMP 36.4; O2SAT 96
[2025-07-19] MEDS: TAMSULOSIN HCL 0.4 MG CAPSULE 0.8 MG PO (20:42)
[2025-07-19] MEDS: PANTOPRAZOLE 40 MG TABLET PO (20:42)
[2025-07-19] MEDS: hydrOXYzine HCL 12.5 MG TABLET PO (20:42)
[2025-07-19] MEDS: FINASTERIDE 5 MG TABLET PO (20:42)
[2025-07-19] MEDS: MELATONIN 5 MG TABLET PO (20:42)
[2025-07-19 23:35] VITALS: BP 133/76; PULSE 98; RESP 16; TEMP 36.5; O2SAT 95
[2025-07-20] MEDS: LEVOTHYROXINE SODIUM 50 MCG TABLET PO (05:32)
[2025-07-20 06:02] LABS: Hematocrit 37.7 % (37.0-46.0); Hemoglobin 12.2 g/dL (12.4-15.3); Mean Corpuscular HGB Conc 32.4 g/dL (32-36); Mean Corpuscular Hemoglobin 28.2 pg (27.0-31.0); Mean Corpuscular Volume 87.1 fL (78.0-102.0); Platelet Count Result 608 K/mm3 (150-420); Red Blood Count 4.33 M/mm3 (4.70-6.10); White Blood Count 16.6 K/mm3 (4.8-10.8)
[2025-07-20 06:13] LABS: Band Neutrophils Percent 0 % (0-6); Eosinophils Absolute Manual 0.33 K/mm3 (0.02-0.50); Eosinophils Percent Manual 2 % (1-6); Lymphocytes Absolute Manual 2.15 K/mm3 (1.1-4.5); Lymphocytes Percent Manual 13 % (18-44); Metamyelocytes Percent 1 %; Monocytes Absolute Manual 1.99 K/mm3 (0.1-0.90); Monocytes Percent Manual 12 % (3-9); Myelocytes Percent 2 %; Neutrophils Absolute Manual 11.62 K/mm3 (1.3-6.7); Neutrophils Percent Manual 70 % (46-73); Total Cells Counted 100
[2025-07-20 07:19] LABS: Alanine Aminotransferase 58 U/L (6-50); Albumin Level 3.0 g/dL (3.5-5.1); Alkaline Phosphatase 122 U/L (38-126); Anion Gap 5 mmol/L (4-12); Aspartate Amino Transferase 52 U/L (17-59); Bilirubin,Total 0.8 mg/dL (0.2-1.3); Blood Urea Nitrogen 15 mg/dL (9-20); Calcium 8.3 mg/dL (8.4-10.2); Carbon Dioxide 30 mmol/L (22-30); Chloride 103 mmol/L (98-107); Estimated CRCL calculation 72 ml/min; Estimated Glomerular Filt Rate > 60; Glucose 98 mg/dL (65-110); Osmolality Calculated 286 mOsm/kg (285-295); Potassium 4.2 mmol/L (3.4-5.0); Sodium 138 mmol/L (137-145); Total Protein 5.8 g/dL (6.3-8.2)
[2025-07-20 08:00] VITALS: BP 104/78; PULSE 78; RESP 17; TEMP 36.3; O2SAT 92
[2025-07-20] MEDS: SERTRALINE HCL 50 MG TABLET PO (08:43)
[2025-07-20] MEDS: HYDROCORTISONE 2.5% CREAM 30 GM TUBE 1 APPLIC TOPICAL ×2 (08:43→21:11)
[2025-07-20] MEDS: FAMOTIDINE 20 MG TABLET 40 MG PO (08:43)
[2025-07-20] MEDS: ASPIRIN 81 MG ENTERIC TABLET PO ×2 (08:44→21:10)
[2025-07-20] MEDS: DOXYCYCLINE HYCLATE 100 MG TABLET PO (08:44)
[2025-07-20] MEDS: SENNA/DOCUSATE SODIUM TABLET 2 TAB PO (08:45)
[2025-07-20] MEDS: HYDROcodone/acetaminophen (*CRX) 7.5-325 MG TABLET 1 TAB PO (08:47)
[2025-07-20 16:00] VITALS: BP 128/80; PULSE 82; RESP 16; TEMP 36.6; O2SAT 96
[2025-07-20 20:00] VITALS: PULSE 82; RESP 16; O2SAT 96
[2025-07-20] MEDS: HYDROcodone/acetaminophen (*CRX) 5-325 MG TABLET 1 TAB PO (21:08)
[2025-07-20] MEDS: MELATONIN 5 MG TABLET PO (21:08)
[2025-07-20] MEDS: TAMSULOSIN HCL 0.4 MG CAPSULE 0.8 MG PO (21:10)
[2025-07-20] MEDS: PANTOPRAZOLE 40 MG TABLET PO (21:10)
[2025-07-20] MEDS: FINASTERIDE 5 MG TABLET PO (21:10)
[2025-07-21] VITALS: BP 150/82; PULSE 105; RESP 20; TEMP 37.6; O2SAT 97
[2025-07-21] MEDS: hydrOXYzine HCL 12.5 MG TABLET PO (00:53)
[2025-07-21] MEDS: LEVOTHYROXINE SODIUM 50 MCG TABLET PO (06:22)
[2025-07-21 07:40] VITALS: BP 128/72; PULSE 90; RESP 18; TEMP 36.6; O2SAT 96
[2025-07-21] MEDS: SERTRALINE HCL 50 MG TABLET PO (08:17)
[2025-07-21] MEDS: ASPIRIN 81 MG ENTERIC TABLET PO ×2 (08:17→20:42)
[2025-07-21] MEDS: FAMOTIDINE 20 MG TABLET 40 MG PO (08:17)
[2025-07-21] MEDS: HYDROCORTISONE 2.5% CREAM 30 GM TUBE 1 APPLIC TOPICAL ×2 (08:18→20:42)
[2025-07-21] MEDS: HYDROcodone/acetaminophen (*CRX) 7.5-325 MG TABLET 1 TAB PO (10:28)
--- NOTE | 2025-07-21 14:06 | PC.NURSE ---
report to aliya grey rn.
[2025-07-21 16:00] VITALS: BP 120/72; PULSE 92; RESP 20; TEMP 36.6; O2SAT 94
[2025-07-21 20:00] VITALS: PULSE 92; RESP 20; O2SAT 94
[2025-07-21] MEDS: TAMSULOSIN HCL 0.4 MG CAPSULE 0.8 MG PO (20:42)
[2025-07-21] MEDS: FINASTERIDE 5 MG TABLET PO (20:42)
[2025-07-21] MEDS: PANTOPRAZOLE 40 MG TABLET PO (20:42)
[2025-07-21] MEDS: MELATONIN 5 MG TABLET PO (20:42)
[2025-07-22] VITALS: BP 139/73; PULSE 95; RESP 16; TEMP 36.4; O2SAT 96
[2025-07-22] MEDS: LEVOTHYROXINE SODIUM 50 MCG TABLET PO (06:25)
[2025-07-22 08:00] VITALS: BP 121/74; PULSE 92; RESP 18; TEMP 36.4; O2SAT 93
--- NOTE | 2025-07-22 09:18 | P.PNIM_ITS ---
Assessment and Plan Assessment and Plan (1) Closed fracture of right hip: Code(s): S72.001A - Fracture of unspecified part of neck of right femur, initial encounter for closed fracture Status: Acute Assessment and Plan: s/p right hip hemiarthroplasty on 07/[address] Peter * WBAT * aspirin 81 mg BID x 30 days for DVT prophylaxis * [place]ism[place] PO for pain management * PT/OT * Bowel regiment * F/U appt. secheduled with Ortho 07/28/2025 @ 13:30 (2) Hypothyroidism: Code(s): E03.9 - Hypothyroidism, unspecified Status: Acute Assessment and Plan: * continue levothyroxine (3) Dementia: Code(s): F03.90 - Unspecified dementia, unspecified severity, without behavioral disturbance, psychotic disturbance, mood disturbance, and anxiety Status: Acute Assessment and Plan: patient with HX of dementia and sundowning at night * room close to nurses station, bed alarm * melatonin at HS * Encourage sleep-wake cycles * reorient frequently * continue donepezil (4) Fall: Code(s): W19.XXXA - Unspecified fall, initial encounter Status: Acute Assessment and Plan: * fall precautions * PT/OT (5) BPH (benign prostatic hyperplasia): Code(s): N40.0 - Benign prostatic hyperplasia without lower urinary tract symptoms Status: Acute Assessment and Plan: * continue finasteride and flomax Plan Code status: Full code per patient DVT prophylaxis: NA Stress ulcer prophylaxis: Pantoprazole 40 substituted for patient's as esomeprazole PT/OT notes: REHAB/SWING Disposition: patient continues admission to [facility] bed for rehab post surgical repair of right fractured hip continue with current physical and occupational therapy to advance patient's strength and endurance with plans to return home at discharge. Medical Record Review I have reviewed the following patient records and this information was taken into consideration when formulating the assessment and plan.: previous labs, previous ER visits and previous hospitalizations Time Spent With Patient Time with patient: 15 - 25 minutes Subjective Date/time seen: 07/22/25 09:18 Interval history: Patient is a 80 year old male with PMH of inclusion body myositis, HTN, lumbar spondylosis, hypothyroidism, dementia and BPH. Patient was admitted to [facility] from 07/12/25 to 07/15/2025 after a mechanical fall that resulted in a displaced right femoral neck fracture. Patient was taken to the OR on 07/12/[address] Peter for a right hip arthroplasty. Admitted to [facility] for rehab. 07/22/2025: Assumed Care Patient reports pain has improved with ambulation. Patient denied any CP, SOB, N/V. Nursing reported he slept well last night with no events. at bedside and updated. Review of Systems Review of Systems: All systems reviewed & are unremarkable except as noted in HPI and below Exam Const: General: comfortable and no acute distress HENMT: Face/Nose/Sinus: Normal nares present Mouth: Yes moist mucous membranes Eyes: General: appearance normal, both eyes and all related structures Sclera: sclerae normal Neck: Neck: supple Resp: Effort & Inspection: normal respiratory effort Auscultation: clear to auscultation bilaterally Cardio: Rate: regular rate Rhythm: regular rhythm GI: Auscultation: normal bowel sounds Skin: General skin exam: normal color and no rashes or lesions noted Other: surgical dressing to right hip C/D/I Neuro: Speech: normal speech Motor exam (neuro): 5/5 motor strength present throughout Sensory Exam: normal sensation Extrem: General: normal to inspection Other: right leg internally rotated Psych: Affect: normal affect Other: alert and oriented x 3 but confused at times, dementia Objective Data Vital Signs Vital Signs: Vital Signs - 24 hr 07/21/25 16:00 07/21/25 20:00 07/22/25 00:00 Temperature 97.8 F 97.6 F Pulse Rate 92 92 95 Respiratory Rate 20 20 16 Blood Pressure 120/72 139/73 Pulse Oximetry 94 94 96 Oxygen Delivery Room Air Room Air Room Air 07/22/25 08:00 Temperature 97.5 F L Pulse Rate 92 Respiratory Rate 18 Blood Pressure 121/74 Pulse Oximetry 93 Oxygen Delivery Room Air Intake/Output Intake/Output: Intake & Output 07/19/25 07/20/25 07/21/25 07/22/25 23:59 23:59 23:59 23:59 Intake Total 2170 1925 2170 780 Output Total 735 930 8408 1250 Balance 1370 1425 270 -470 Meds/Results Medications: Active Medications Generic Name Dose Route Start Last Admin Trade Name Freq PRN Reason Stop Dose Admin Acetaminophen 650 mg 07/15/25 17:57 07/18/25 12:21 Acetaminophen 325 Mg Tablet PO 650 mg Q6H PRN Administration Mild Pain (1-3) or Fever Hydrocodone Bitart/Acetaminophen 1 tab 07/15/25 17:57 07/21/25 10:28 Hydrocodone/Acetaminophen (*Crx) 7.5-325 Mg Tablet PO 1 tab Q4H PRN Administration Pain Rated 7-10 Hydrocodone Bitart/Acetaminophen 1 tab 07/15/25 17:57 07/20/25 21:08 Hydrocodone/Acetaminophen (*Crx) 5-325 Mg Tablet PO 1 tab Q4H PRN Administration Pain Rated 4-6 Aspirin 81 mg 07/15/25 21:00 07/21/25 20:42 Aspirin 81 Mg Enteric Tablet PO 81 mg Q12HR CHICHO Administration Famotidine 40 mg 07/16/25 09:00 07/21/25 08:17 Famotidine 20 Mg Tablet PO 40 mg DAILY CHICHO Administration Finasteride 5 mg 07/15/25 21:00 07/21/25 20:42 Finasteride 5 Mg Tablet PO 5 mg HS CHICHO Administration Hydrocortisone 1 applic 07/17/25 21:00 07/21/25 20:42 Hydrocortisone 2.5% Cream 30 Gm Tube TOPICAL 1 applic Q12HR CHICHO Administration Hydroxyzine HCl 12.5 mg 07/17/25 16:57 07/21/25 00:53 Hydroxyzine Hcl 12.5 Mg Tablet PO 12.5 mg Q8H PRN Administration Itching Levothyroxine Sodium 50 mcg 07/16/25 06:30 07/22/25 06:25 Levothyroxine Sodium 50 Mcg Tablet PO 50 mcg DAILY@0630 CHICHO Administration Melatonin 5 mg 07/15/25 22:25 07/21/25 20:42 Melatonin 5 Mg Tablet PO 5 mg HS CHICHO Administration Home Medication ( 1 each 07/15/25 21:00 07/20/25 21:11 Donepezil Hcl 23 Mg PO 08/14/25 20:59 1 each Oral Tablet) HS CHICHO Administration Pantoprazole Sodium 40 mg 07/15/25 21:00 07/21/25 20:42 Pantoprazole 40 Mg Tablet PO 40 mg HS CHICHO Administration Polyethylene Glycol 17 gm 07/20/25 09:00 07/21/25 08:16 Polyethylene Glycol 3350 17 Gm Powd.Pack PO 17 gm QAM CHICHO Administration Senna/Docusate Sodium 2 tab 07/19/25 21:00 07/21/25 20:46 Senna/Docusate Sodium Tablet PO Not Given Q12H CHICHO Sertraline HCl 50 mg 07/16/25 09:00 07/21/25 08:17 Sertraline Hcl 50 Mg Tablet PO 50 mg DAILY CHICHO Administration Tamsulosin HCl 0.8 mg 07/15/25 21:00 07/21/25 20:42 Tamsulosin Hcl 0.4 Mg Capsule PO 0.8 mg HS CHICHO Administration Labs Attestation: I personally reviewed all lab results Quality VTE Prophylaxis VTE prophylaxis: pharmacologic ordered -Patient's previous records reviewed on admission -ER notes reviewed in detail on admission -discussed all findings and current treatment plan with patient/Family/POA -Consultations reviewed for recommendations -Patient's disposition for safe discharge discussed with shelter case manager -radiology imaging, EKG and test results I have personally reviewed and interpreted unless otherwise specified Dictation performed by [employer] direct speech recognition software, therefore electronic integrated systems mechanic variants and typographical errors may occur. Hospitalist MIPS Advance Care Plan I have confirmed that the patient's Advanced Care Plan is present, code status is documented, or surrogate decision maker is listed in patient medical record.: Yes Medication Reconciliation I have utilized all available resources to obtain, update and review the patients current medications (includes all prescriptions, OTC, herbals, cannabis, and nutritional supplements).: Yes The patient is not eligible for med reconciliation; the patient is in a emergent medical situation where delaying treatment would jeopardize the patients health.: No
[2025-07-22] MEDS: SERTRALINE HCL 50 MG TABLET PO (09:21)
[2025-07-22] MEDS: FAMOTIDINE 20 MG TABLET 40 MG PO (09:21)
[2025-07-22] MEDS: ASPIRIN 81 MG ENTERIC TABLET PO ×2 (09:21→20:49)
[2025-07-22] MEDS: HYDROCORTISONE 2.5% CREAM 30 GM TUBE 1 APPLIC TOPICAL ×2 (09:25→20:49)
[2025-07-22 09:55] LABS: Hematocrit 37.6 % (37.0-46.0); Hemoglobin 12.0 g/dL (12.4-15.3); Immature Platelet Fraction Pct 0.4 % (1.0-7.0); Mean Corpuscular HGB Conc 31.9 g/dL (32-36); Mean Corpuscular Hemoglobin 27.6 pg (27.0-31.0); Mean Corpuscular Volume 86.6 fL (78.0-102.0); Platelet Count Result 742 K/mm3 (150-420); Red Blood Count 4.34 M/mm3 (4.70-6.10); White Blood Count 14.8 K/mm3 (4.8-10.8)
[2025-07-22 10:10] LABS: Alanine Aminotransferase 57 U/L (6-50); Albumin Level 3.3 g/dL (3.5-5.1); Alkaline Phosphatase 112 U/L (38-126); Anion Gap 7 mmol/L (4-12); Aspartate Amino Transferase 54 U/L (17-59); Bilirubin,Total 0.7 mg/dL (0.2-1.3); Blood Urea Nitrogen 19 mg/dL (9-20); Calcium 8.3 mg/dL (8.4-10.2); Carbon Dioxide 28 mmol/L (22-30); Chloride 104 mmol/L (98-107); Estimated CRCL calculation 59 ml/min; Estimated Glomerular Filt Rate > 60; Glucose 84 mg/dL (65-110); Magnesium 2.2 mg/dL (1.6-2.3); Osmolality Calculated 289 mOsm/kg (285-295); Potassium 4.4 mmol/L (3.4-5.0); Sodium 139 mmol/L (137-145); Total Protein 6.1 g/dL (6.3-8.2)
[2025-07-22 16:00] VITALS: BP 124/54; PULSE 74; RESP 20; TEMP 36.6; O2SAT 95
[2025-07-22] MEDS: HYDROcodone/acetaminophen (*CRX) 7.5-325 MG TABLET 1 TAB PO (18:40)
[2025-07-22 20:00] VITALS: PULSE 92; RESP 16; O2SAT 96
[2025-07-22] MEDS: SENNA/DOCUSATE SODIUM TABLET 2 TAB PO (20:48)
[2025-07-22] MEDS: PANTOPRAZOLE 40 MG TABLET PO (20:48)
[2025-07-22] MEDS: hydrOXYzine HCL 12.5 MG TABLET PO (20:48)
[2025-07-22] MEDS: TAMSULOSIN HCL 0.4 MG CAPSULE 0.8 MG PO (20:48)
[2025-07-22] MEDS: FINASTERIDE 5 MG TABLET PO (20:49)
[2025-07-22] MEDS: MELATONIN 5 MG TABLET PO (20:49)
[2025-07-23] VITALS: BP 126/74; PULSE 92; RESP 16; TEMP 36.6; O2SAT 96
[2025-07-23] MEDS: LEVOTHYROXINE SODIUM 50 MCG TABLET PO (06:13)
[2025-07-23 08:00] VITALS: BP 123/76; PULSE 90; RESP 16; TEMP 36.6; O2SAT 94
[2025-07-23] MEDS: ACETAMINOPHEN 325 MG TABLET 650 MG PO ×2 (08:47→14:39)
[2025-07-23] MEDS: SERTRALINE HCL 50 MG TABLET PO (08:49)
[2025-07-23] MEDS: ASPIRIN 81 MG ENTERIC TABLET PO ×2 (08:49→21:11)
[2025-07-23] MEDS: FAMOTIDINE 20 MG TABLET 40 MG PO (08:49)
[2025-07-23 16:00] VITALS: BP 126/76; PULSE 78; RESP 16; TEMP 36.2; O2SAT 94
[2025-07-23] MEDS: HYDROcodone/acetaminophen (*CRX) 7.5-325 MG TABLET 1 TAB PO (17:52)
[2025-07-23 19:20] VITALS: BP 138/78; PULSE 72; RESP 17; TEMP 36.9; O2SAT 97
[2025-07-23 20:00] VITALS: PULSE 72; RESP 17; O2SAT 97
[2025-07-23] MEDS: MELATONIN 5 MG TABLET PO (21:11)
[2025-07-23] MEDS: FINASTERIDE 5 MG TABLET PO (21:11)
[2025-07-23] MEDS: PANTOPRAZOLE 40 MG TABLET PO (21:11)
[2025-07-23] MEDS: TAMSULOSIN HCL 0.4 MG CAPSULE 0.8 MG PO (21:11)
[2025-07-23] MEDS: HYDROcodone/acetaminophen (*CRX) 5-325 MG TABLET 1 TAB PO (21:28)
[2025-07-24] VITALS: BP 138/89; PULSE 92; RESP 20; TEMP 36.6; O2SAT 97
[2025-07-24] MEDS: LEVOTHYROXINE SODIUM 50 MCG TABLET PO (05:36)
[2025-07-24 08:00] VITALS: BP 131/78; PULSE 87; RESP 18; TEMP 36.2; O2SAT 96
[2025-07-24] MEDS: FAMOTIDINE 20 MG TABLET 40 MG PO (08:41)
[2025-07-24] MEDS: SERTRALINE HCL 50 MG TABLET PO (08:41)
[2025-07-24] MEDS: ASPIRIN 81 MG ENTERIC TABLET PO ×2 (08:41→21:48)
[2025-07-24 16:45] VITALS: BP 135/83; PULSE 90; RESP 16; TEMP 36.4; O2SAT 97
[2025-07-24] MEDS: PANTOPRAZOLE 40 MG TABLET PO (21:48)
[2025-07-24] MEDS: TAMSULOSIN HCL 0.4 MG CAPSULE 0.8 MG PO (21:48)
[2025-07-24] MEDS: MELATONIN 5 MG TABLET PO (21:48)
[2025-07-24] MEDS: FINASTERIDE 5 MG TABLET PO (21:49)
[2025-07-24] MEDS: HYDROcodone/acetaminophen (*CRX) 7.5-325 MG TABLET 1 TAB PO (21:49)
[2025-07-25] VITALS: BP 141/82; PULSE 97; RESP 16; TEMP 36.6; O2SAT 93
[2025-07-25] MEDS: LEVOTHYROXINE SODIUM 50 MCG TABLET PO (05:54)
[2025-07-25 07:17] LABS: Hematocrit 35.9 % (37.0-46.0); Hemoglobin 11.5 g/dL (12.4-15.3); Immature Platelet Fraction Pct 2.9 % (1.0-7.0); Mean Corpuscular HGB Conc 32.0 g/dL (32-36); Mean Corpuscular Hemoglobin 27.5 pg (27.0-31.0); Mean Corpuscular Volume 85.9 fL (78.0-102.0); Platelet Count Result 596 K/mm3 (150-420); Red Blood Count 4.18 M/mm3 (4.70-6.10); White Blood Count 14.0 K/mm3 (4.8-10.8)
[2025-07-25 07:41] LABS: Alanine Aminotransferase 40 U/L (6-50); Albumin Level 3.2 g/dL (3.5-5.1); Alkaline Phosphatase 124 U/L (38-126); Anion Gap 5 mmol/L (4-12); Aspartate Amino Transferase 40 U/L (17-59); Bilirubin,Total 0.4 mg/dL (0.2-1.3); Blood Urea Nitrogen 19 mg/dL (9-20); Calcium 8.1 mg/dL (8.4-10.2); Carbon Dioxide 25 mmol/L (22-30); Chloride 107 mmol/L (98-107); Estimated CRCL calculation 72 ml/min; Estimated Glomerular Filt Rate > 60; Glucose 101 mg/dL (65-110); Magnesium 2.4 mg/dL (1.6-2.3); Osmolality Calculated 286 mOsm/kg (285-295); Potassium 4.3 mmol/L (3.4-5.0); Sodium 137 mmol/L (137-145); Total Protein 5.9 g/dL (6.3-8.2)
[2025-07-25 08:00] VITALS: BP 110/69; PULSE 85; RESP 20; TEMP 36.9; O2SAT 99
[2025-07-25] MEDS: FAMOTIDINE 20 MG TABLET 40 MG PO (08:48)
[2025-07-25] MEDS: SERTRALINE HCL 50 MG TABLET PO (08:48)
[2025-07-25] MEDS: ASPIRIN 81 MG ENTERIC TABLET PO ×2 (08:48→20:53)
--- NOTE | 2025-07-25 10:38 | P.PNIM_ITS ---
Assessment and Plan Assessment and Plan (1) Closed fracture of right hip: Code(s): S72.001A - Fracture of unspecified part of neck of right femur, initial encounter for closed fracture Status: Acute Assessment and Plan: s/p right hip hemiarthroplasty on 07/[address] Peter * WBAT * aspirin 81 mg BID x 30 days for DVT prophylaxis * [place] PO for pain management * PT/OT * Bowel regiment * F/U appt. secheduled with Ortho 07/28/2025 @ 13:30 (2) Hypothyroidism: Code(s): E03.9 - Hypothyroidism, unspecified Status: Acute Assessment and Plan: * continue levothyroxine (3) Dementia: Code(s): F03.90 - Unspecified dementia, unspecified severity, without behavioral disturbance, psychotic disturbance, mood disturbance, and anxiety Status: Acute Assessment and Plan: patient with HX of dementia and sundowning at night * room close to nurses station, bed alarm * melatonin at HS * Encourage sleep-wake cycles * reorient frequently * continue donepezil (4) Fall: Code(s): W19.XXXA - Unspecified fall, initial encounter Status: Acute Assessment and Plan: * fall precautions * PT/OT (5) BPH (benign prostatic hyperplasia): Code(s): N40.0 - Benign prostatic hyperplasia without lower urinary tract symptoms Status: Acute Assessment and Plan: * continue finasteride and flomax Plan Code status: Full code per patient DVT prophylaxis: NA Stress ulcer prophylaxis: Pantoprazole 40 substituted for patient's as esomeprazole PT/OT notes: REHAB/SWING Disposition: patient continues admission to [facility] bed for rehab post surgical repair of right fractured hip continue with current physical and occupational therapy to advance patient's strength and endurance with plans to return home at discharge. Medical Record Review I have reviewed the following patient records and this information was taken into consideration when formulating the assessment and plan.: previous labs, previous ER visits and previous hospitalizations Time Spent With Patient Time with patient: 15 - 25 minutes Subjective Date/time seen: 07/25/25 10:38 Interval history: Patient is a 80 year old male with PMH of inclusion body myositis, HTN, lumbar spondylosis, hypothyroidism, dementia and BPH. Patient was admitted to [facility] from 07/12/25 to 07/15/2025 after a mechanical fall that resulted in a displaced right femoral neck fracture. Patient was taken to the OR on 07/12/[address] Peter for a right hip arthroplasty. Admitted to [facility] for rehab. 07/25/2025: Patient up in chair with no complaints progressing with PT/OT. Patient denied CP, SOB, N/V, dizziness and pain is controlled with activity. Labs reviewed unremarkable and vitals stable. Goal is to return home with family. Review of Systems Review of Systems: All systems reviewed & are unremarkable except as noted in HPI and below Exam Const: General: comfortable and no acute distress HENMT: Face/Nose/Sinus: Normal nares present Mouth: Yes moist mucous membranes Eyes: General: appearance normal, both eyes and all related structures Sclera: sclerae normal Neck: Neck: supple Resp: Effort & Inspection: normal respiratory effort Auscultation: clear to auscultation bilaterally Cardio: Rate: regular rate Rhythm: regular rhythm GI: Auscultation: normal bowel sounds Skin: General skin exam: normal color and no rashes or lesions noted Other: surgical dressing to right hip C/D/I Neuro: Speech: normal speech Motor exam (neuro): 5/5 motor strength present throughout Sensory Exam: normal sensation Extrem: General: normal to inspection Other: right leg internally rotated Psych: Affect: normal affect Other: alert and oriented x 3 but confused at times, dementia Objective Data Vital Signs Vital Signs: Vital Signs - 24 hr 07/24/25 16:45 07/24/25 19:58 07/25/25 00:00 Temperature 97.5 F L 98 F Pulse Rate 90 97 Respiratory Rate 16 16 Blood Pressure 135/83 141/82 H Pulse Oximetry 97 93 Oxygen Delivery Room Air Room Air Room Air 07/25/25 08:00 Temperature 98.5 F Pulse Rate 85 Respiratory Rate 20 Blood Pressure 110/69 Pulse Oximetry 99 Oxygen Delivery Room Air Intake/Output Intake/Output: Intake & Output 07/22/25 07/23/25 07/24/25 07/25/25 23:59 23:59 23:59 23:59 Intake Total 1680 2280 1390 780 Output Total 0520 488 9727 375 Balance 430 1380 -585 405 Meds/Results Medications: Active Medications Generic Name Dose Route Start Last Admin Trade Name Freq PRN Reason Stop Dose Admin Acetaminophen 650 mg 07/15/25 17:57 07/23/25 14:39 Acetaminophen 325 Mg Tablet PO 650 mg Q6H PRN Administration Mild Pain (1-3) or Fever Hydrocodone Bitart/Acetaminophen 1 tab 07/15/25 17:57 07/24/25 21:49 Hydrocodone/Acetaminophen (*Crx) 7.5-325 Mg Tablet PO 1 tab Q4H PRN Administration Pain Rated 7-10 Hydrocodone Bitart/Acetaminophen 1 tab 07/15/25 17:57 07/23/25 21:28 Hydrocodone/Acetaminophen (*Crx) 5-325 Mg Tablet PO 1 tab Q4H PRN Administration Pain Rated 4-6 Aspirin 81 mg 07/15/25 21:00 07/25/25 08:48 Aspirin 81 Mg Enteric Tablet PO 81 mg Q12HR CHICHO Administration Famotidine 40 mg 07/16/25 09:00 07/25/25 08:48 Famotidine 20 Mg Tablet PO 40 mg DAILY CHICHO Administration Finasteride 5 mg 07/15/25 21:00 07/24/25 21:49 Finasteride 5 Mg Tablet PO 5 mg HS CHICHO Administration Hydroxyzine HCl 12.5 mg 07/17/25 16:57 07/22/25 20:48 Hydroxyzine Hcl 12.5 Mg Tablet PO 12.5 mg Q8H PRN Administration Itching Levothyroxine Sodium 50 mcg 07/16/25 06:30 07/25/25 05:54 Levothyroxine Sodium 50 Mcg Tablet PO 50 mcg DAILY@0630 CHICHO Administration Melatonin 5 mg 07/15/25 22:25 07/24/25 21:48 Melatonin 5 Mg Tablet PO 5 mg HS CHICHO Administration Miscellaneous Information 1 each 07/25/25 00:01 07/25/25 08:31 [place] 5/325 And [place] 7.5/325 Need To Be Renewed Or They Will Automatically Discontinue. XX 08/24/25 00:00 Not Given CLARIFY CHICHO Home Medication ( 1 each 07/15/25 21:00 07/24/25 21:47 Donepezil Hcl 23 Mg PO 08/14/25 20:59 1 each Oral Tablet) HS CHICHO Administration Pantoprazole Sodium 40 mg 07/15/25 21:00 07/24/25 21:48 Pantoprazole 40 Mg Tablet PO 40 mg HS CHICHO Administration Polyethylene Glycol 17 gm 07/23/25 08:50 Polyethylene Glycol 3350 17 Gm Powd.Pack PO QAM PRN Constipation Senna/Docusate Sodium 2 tab 07/23/25 08:50 Senna/Docusate Sodium Tablet PO Q12H PRN constipation Sertraline HCl 50 mg 07/16/25 09:00 07/25/25 08:48 Sertraline Hcl 50 Mg Tablet PO 50 mg DAILY CHICHO Administration Tamsulosin HCl 0.8 mg 07/15/25 21:00 07/24/25 21:48 Tamsulosin Hcl 0.4 Mg Capsule PO 0.8 mg HS CHICHO Administration Labs Labs: Laboratory Results - last 24 hr 07/25/25 07/25/25 07:10 07:11 WBC 14.0 H RBC 4.18 L Hgb 11.5 L Hct 35.9 L MCV 85.9 MCH 27.5 MCHC 32.0 RDW 13.2 Plt Count 596 H MPV 8.9 % Immature Plt Fraction 2.9 Sodium 137 Potassium 4.3 Chloride 107 Carbon Dioxide 25 Anion Gap 5 BUN 19 Creatinine 0.68 L Estim Creat Clear Calc 72 Estimated GFR > 60 Glucose 101 Calculated Osmolality 286 Calcium 8.1 L Magnesium 2.4 H Total Bilirubin 0.4 AST 40 ALT 40 Alkaline Phosphatase 124 Total Protein 5.9 L Albumin 3.2 L Attestation: I personally reviewed all lab results Quality VTE Prophylaxis VTE prophylaxis: pharmacologic ordered -Patient's previous records reviewed on admission -ER notes reviewed in detail on admission -discussed all findings and current treatment plan with patient/Family/POA -Consultations reviewed for recommendations -Patient's disposition for safe discharge discussed with leather case finisher -radiology imaging, EKG and test results I have personally reviewed and interpreted unless otherwise specified Dictation performed by [employer] direct speech recognition software, therefore disbursing officer variants and typographical errors may occur. Hospitalist MIPS Advance Care Plan I have confirmed that the patient's Advanced Care Plan is present, code status is documented, or surrogate decision maker is listed in patient medical record.: Yes Medication Reconciliation I have utilized all available resources to obtain, update and review the patients current medications (includes all prescriptions, OTC, herbals, cannabis, and nutritional supplements).: Yes The patient is not eligible for med reconciliation; the patient is in a emergent medical situation where delaying treatment would jeopardize the patients health.: No
[2025-07-25 16:00] VITALS: BP 127/75; PULSE 87; RESP 18; TEMP 36.2; O2SAT 97
[2025-07-25] MEDS: HYDROcodone/acetaminophen (*CRX) 5-325 MG TABLET 1 TAB PO (17:40)
[2025-07-25] MEDS: PANTOPRAZOLE 40 MG TABLET PO (20:53)
[2025-07-25] MEDS: FINASTERIDE 5 MG TABLET PO (20:53)
[2025-07-25] MEDS: MELATONIN 5 MG TABLET PO (20:53)
[2025-07-25] MEDS: TAMSULOSIN HCL 0.4 MG CAPSULE 0.8 MG PO (20:53)
[2025-07-25] MEDS: hydrOXYzine HCL 12.5 MG TABLET PO (20:53)
[2025-07-25] MEDS: ACETAMINOPHEN 325 MG TABLET 650 MG PO (20:53)
[2025-07-26] VITALS: BP 129/86; PULSE 84; RESP 18; TEMP 36.7; O2SAT 96
[2025-07-26] MEDS: LEVOTHYROXINE SODIUM 50 MCG TABLET PO (06:33)
[2025-07-26 08:00] VITALS: BP 124/75; PULSE 98; RESP 18; TEMP 36.5; O2SAT 95
[2025-07-26] MEDS: ASPIRIN 81 MG ENTERIC TABLET PO ×2 (08:49→20:05)
[2025-07-26] MEDS: FAMOTIDINE 20 MG TABLET 40 MG PO (08:49)
[2025-07-26] MEDS: SERTRALINE HCL 50 MG TABLET PO (08:49)
[2025-07-26] MEDS: HYDROcodone/acetaminophen (*CRX) 5-325 MG TABLET 1 TAB PO ×2 (11:07→20:04)
[2025-07-26 16:00] VITALS: BP 152/89; PULSE 90; RESP 16; TEMP 36.4; O2SAT 98
[2025-07-26] MEDS: hydrOXYzine HCL 12.5 MG TABLET PO (20:04)
[2025-07-26] MEDS: TAMSULOSIN HCL 0.4 MG CAPSULE 0.8 MG PO (20:05)
[2025-07-26] MEDS: MELATONIN 5 MG TABLET PO (20:05)
[2025-07-26] MEDS: FINASTERIDE 5 MG TABLET PO (20:05)
[2025-07-26] MEDS: PANTOPRAZOLE 40 MG TABLET PO (20:05)
[2025-07-27] VITALS: BP 154/79; PULSE 84; RESP 18; TEMP 36.7; O2SAT 97
[2025-07-27] MEDS: LEVOTHYROXINE SODIUM 50 MCG TABLET PO (06:25)
[2025-07-27 08:00] VITALS: BP 127/81; PULSE 90; RESP 20; TEMP 36.3; O2SAT 97
[2025-07-27] MEDS: FAMOTIDINE 20 MG TABLET 40 MG PO (08:51)
[2025-07-27] MEDS: HYDROcodone/acetaminophen (*CRX) 5-325 MG TABLET 1 TAB PO ×2 (08:51→19:57)
[2025-07-27] MEDS: SERTRALINE HCL 50 MG TABLET PO (08:51)
[2025-07-27] MEDS: ASPIRIN 81 MG ENTERIC TABLET PO ×2 (08:51→19:58)
[2025-07-27 16:00] VITALS: BP 125/74; PULSE 88; RESP 20; TEMP 36.6; O2SAT 96
[2025-07-27] MEDS: TAMSULOSIN HCL 0.4 MG CAPSULE 0.8 MG PO (19:57)
[2025-07-27] MEDS: PANTOPRAZOLE 40 MG TABLET PO (19:57)
[2025-07-27] MEDS: hydrOXYzine HCL 12.5 MG TABLET PO (19:57)
[2025-07-27] MEDS: FINASTERIDE 5 MG TABLET PO (19:58)
[2025-07-27] MEDS: MELATONIN 5 MG TABLET PO (19:58)
[2025-07-28] VITALS: BP 114/59; PULSE 94; RESP 18; TEMP 36.6; O2SAT 96
[2025-07-28] MEDS: LEVOTHYROXINE SODIUM 50 MCG TABLET PO (05:11)
[2025-07-28 05:35] LABS: Hematocrit 37.1 % (37.0-46.0); Hemoglobin 12.0 g/dL (12.4-15.3); Immature Platelet Fraction Pct 0.3 % (1.0-7.0); Mean Corpuscular HGB Conc 32.3 g/dL (32-36); Mean Corpuscular Hemoglobin 27.7 pg (27.0-31.0); Mean Corpuscular Volume 85.7 fL (78.0-102.0); Platelet Count Result 869 K/mm3 (150-420); Red Blood Count 4.33 M/mm3 (4.70-6.10); White Blood Count 13.5 K/mm3 (4.8-10.8)
[2025-07-28 05:47] LABS: Alanine Aminotransferase 37 U/L (6-50); Albumin Level 3.2 g/dL (3.5-5.1); Alkaline Phosphatase 133 U/L (38-126); Anion Gap 7 mmol/L (4-12); Aspartate Amino Transferase 36 U/L (17-59); Bilirubin,Total 0.3 mg/dL (0.2-1.3); Blood Urea Nitrogen 19 mg/dL (9-20); Calcium 8.2 mg/dL (8.4-10.2); Carbon Dioxide 24 mmol/L (22-30); Chloride 107 mmol/L (98-107); Estimated CRCL calculation 71 ml/min; Estimated Glomerular Filt Rate > 60; Glucose 98 mg/dL (65-110); Magnesium 2.3 mg/dL (1.6-2.3); Osmolality Calculated 288 mOsm/kg (285-295); Potassium 4.1 mmol/L (3.4-5.0); Sodium 138 mmol/L (137-145); Total Protein 6.0 g/dL (6.3-8.2)
[2025-07-28 08:00] VITALS: BP 129/76; PULSE 84; RESP 18; TEMP 36.4; O2SAT 96
--- NOTE | 2025-07-28 09:10 | P.DS_ITS ---
DS: Admitting Diagnosis Discharge Date 07/28/2025 Admitting Diagnosis Rehab Post surgical repair of right hip fracture DS: Discharge Diagnosis Discharge Diagnosis (1) Closed fracture of right hip: Code(s): S72.001A - Fracture of unspecified part of neck of right femur, initial encounter for closed fracture Status: Acute (2) Hypothyroidism: Code(s): E03.9 - Hypothyroidism, unspecified Status: Acute (3) Dementia: Code(s): F03.90 - Unspecified dementia, unspecified severity, without behavioral disturbance, psychotic disturbance, mood disturbance, and anxiety Status: Acute (4) Fall: Code(s): W19.XXXA - Unspecified fall, initial encounter Status: Acute (5) BPH (benign prostatic hyperplasia): Code(s): N40.0 - Benign prostatic hyperplasia without lower urinary tract symptoms Status: Acute DS: Summary Hospital Course Reason for hospitalization: Rehab Post surgical repair of right hip fracture Hospital Course: The patient was admitted following a mechanical fall resulting in a displaced right femoral neck fracture. He underwent right hip hemiarthroplasty on 07/12/[address] Uri Peter with an uncomplicated postoperative course. Pain was controlled with oral medications, and the patient was weight-bearing as tolerated to the right lower extremity. During his swing-bed rehabilitation stay, he participated in PT/OT with progressive improvement toward baseline functional status. He experienced intermittent sundowning related to underlying dementia, requiring brief use of sitter support and non-pharmacologic safety measures. No infectious or cardiopulmonary complications occurred. He is stable for discharge home with home health services. Status at Discharge Functional status at discharge: uses cane/walker Overall status at discharge: patient is progressing back to baseline Time Spent with Patient Time attestation: Total time spent providing and/or coordinating discharge services: Time spent: Greater than 30 minutes Exam Const: General: comfortable and no acute distress HENMT: Face/Nose/Sinus: Normal nares present Mouth: Yes moist mucous membranes Eyes: General: appearance normal, both eyes and all related structures Sclera: sclerae normal Neck: Neck: supple Resp: Effort & Inspection: normal respiratory effort Auscultation: clear to auscultation bilaterally Cardio: Rate: regular rate Rhythm: regular rhythm GI: Auscultation: normal bowel sounds Skin: General skin exam: normal color and no rashes or lesions noted Other: surgical dressing to right hip C/D/I Neuro: Speech: normal speech Motor exam (neuro): 5/5 motor strength present throughout Sensory Exam: normal sensation Extrem: General: normal to inspection Other: right leg internally rotated Psych: Affect: normal affect Other: alert and oriented x 3 but confused at times, dementia DS: Data Data Completed and Pending Labs on day of discharge: Labs from last 24 hours 07/28/25 05:11 WBC 13.5 H RBC 4.33 L Hgb 12.0 L Hct 37.1 MCV 85.7 MCH 27.7 MCHC 32.3 RDW 13.2 Plt Count 869 H MPV 8.2 L % Immature Plt Fraction 0.3 L Sodium 138 Potassium 4.1 Chloride 107 Carbon Dioxide 24 Anion Gap 7 BUN 19 Creatinine 0.69 L Estim Creat Clear Calc 71 Estimated GFR > 60 Glucose 98 Calculated Osmolality 288 Calcium 8.2 L Magnesium 2.3 Total Bilirubin 0.3 AST 36 ALT 37 Alkaline Phosphatase 133 H Total Protein 6.0 L Albumin 3.2 L Discharge Plan Discharge Attending physician on discharge: Bo Phillips Consulting providers: Jade Lund Discharging Clinician: Jade Lund Anticipated Discharge Date/Time: 07/28/25 09:12 Patient Disposition: Home with Home Health Service Discharge Instructions: Per Care Coordination: [facility] ([phone]) will start patient on 08/02/25. They will call with the time. 1). Hip fracture: 1. The orthopedic team wants to see you in their office x2 weeks after your surgery, around 07/28/2025 @ 11:00 to make sure everything is going ok. 2. Per ortho, you will work with physical therapy on a regular basis for at leas t 4-5 weeks. Continue to check your blood pressure and blood sugar at home if applicable. Keep your scheduled appts with your primary care provider and any specialist that you may see. Return to the emergency department if you develop sudden shortness of breath, chest pain, a fever of greater than 101.5, or nausea, vomiting, abd pain, or diarrhea that does not go away. Follow-up with your primary care provider within 1-2 weeks, they will want to be updated on your inpatient stay in the hospital. How can you care for yourself at home? ? Keep track of any new symptoms or changes in your symptoms. ? Rest until you feel better. ? Be safe with medicines. Take your medicines exactly as prescribed. Call your doctor if you think you are having a problem with your medicine. ? Do not drive after taking a prescription pain medicine. ? Ensure to follow-up with primary care physician as indicated and provide updated medication list provided to you at discharge. When should you call for help? Call 911 anytime you think you may need emergency care. For example, call if: ? You passed out (lost consciousness). Call your doctor now or seek immediate medical care if: ? You have new symptoms like fever, difficulty breathing, Chest pain, vomiting, or rash. ? You have new or different pain. ? You are confused and are having trouble thinking clearly. ? Your symptoms are getting worse. Watch closely for changes in your health, and be sure to contact your doctor if: ? You do not get better as expected. Patient Instructions: Antibiotic Form, Hydrocodone/Acetaminophen (By mouth), Narcotic Safety (DC), Fall Prevention for Older Adults (DC), Hip Fracture (GEN), ORIF of Hip Fracture (DC) Patient Language: Turkmen Stand Alone Forms: General Discharge Information Follow-up/Referrals: Kirt,Levar Hess PA-C [Primary Care Provider] - 2 weeks Uri Peter MD [Physician, Orthopedics] - 07/28/25 11:00 am Discharge Medications: New hydrocodone-acetaminophen 5-325 mg Tablet 1 tablet PO Q4H PRN (Reason: Pain Rated 4-6) Qty: 30 0RF Continued levothyroxine 50 mcg tablet 50 mcg PO DAILY@0630 esomeprazole magnesium 40 mg capsule,delayed release(DR/EC) 40 mg PO HS sertraline 50 mg tablet 50 mg PO DAILY famotidine 40 mg tablet 40 mg PO DAILY finasteride 5 mg tablet 5 mg PO HS tamsulosin 0.4 mg capsule 0.8 mg PO HS donepezil 23 mg tablet 23 mg PO DAILY aspirin 81 mg Tablet,Delayed Release (Dr/Ec) 81 mg PO Q12HR Qty: 30 0RF Discontinued doxycycline hyclate 100 mg capsule 100 mg PO BID Date of admission: 07/15/25 17:27 Primary Care Provider: Kirt,Levar Hess Admitting Provider: Bo Phillips Attending physician on admission: Bo Phillips Condition: Improved Quality VTE Prophylaxis VTE prophylaxis: pharmacologic ordered -Patient's previous records reviewed on admission -ER notes reviewed in detail on admission -discussed all findings and current treatment plan with patient/Family/POA -Consultations reviewed for recommendations -Patient's disposition for safe discharge discussed with case maker -radiology imaging, EKG and test results I have personally reviewed and interpreted unless otherwise specified Dictation performed by [employer] direct speech recognition software, therefore estate attorney variants and typographical errors may occur. Hospitalist MIPS Heart Failure (Exclusion) Patient has history of Heart Transplant or Left Ventricular Assistive Device?: No IF YES, STOP HERE Heart Failure (Qualifier) Patient has current or prior documentation of LVEF less than or equal to 40%, or mod/servere depressed LVSF?: No IF NO, STOP HERE
[2025-07-28] MEDS: FAMOTIDINE 20 MG TABLET 40 MG PO (09:22)
[2025-07-28] MEDS: ASPIRIN 81 MG ENTERIC TABLET PO (09:22)
[2025-07-28] MEDS: SERTRALINE HCL 50 MG TABLET PO (09:22)
--- NOTE | 2025-07-28 12:47 | PC.NURSE ---
1240 - Discharge instructions reviewed with pt and family. All questions and concerns addressed. Pt taken to family vehicle per wheelchair with all belongings.
--- NOTE | 2025-07-29 10:16 | PC.NURSE ---
Call back attempted, no answer, message left
== END 2025-07-28 12:40 | disposition home health service (06) | DRG 561 ==
PROVIDERS: Nurse Practitioner Adult Health; Nurse Practitioner Family; Admitting Provider Internal Medicine; PCP Physician Assistant; Visit Provider Internal Medicine
DX: S72.001D Fracture of unspecified part of neck of right femur, subsequent encounter for closed fracture with routine healing (principal); W19.XXXD Unspecified fall, subsequent encounter; E03.9 Hypothyroidism, unspecified; F03.90 Unspecified dementia, unspecified severity, without behavioral disturbance, psychotic disturbance, mood disturbance, and anxiety; G72.41 Inclusion body myositis [IBM]; I10 Essential (primary) hypertension; M47.816 Spondylosis without myelopathy or radiculopathy, lumbar region; N40.0 Benign prostatic hyperplasia without lower urinary tract symptoms; Z96.641 Presence of right artificial hip joint; Z79.82 Long term (current) use of aspirin
CPT/HCPCS: 36415; 73502; 80053; 83735; 85025; 85027; 85055; 97110; 97161; 97165; 97530; 97535; A9270